=== PATIENT | male | born 1950 | race Caucasian/White ===

== ENCOUNTER 2024-10-19 13:45 | Outpatient (RCR) | payer MEDICARE, SELFPAY ==
[2024-10-12 09:20] VITALS: BP 194/93; PULSE 78; RESP 18; TEMP 36.8; BMI 37.3
--- NOTE | 2024-10-12 10:03 | HP.PCM_ITS ---
History of Present Illness Date of Service: 10/12/24 Chief Complaint: Full-thickness wound, left foot and ankle. History of Wound: Full-thickness wound to left foot and ankle secondary to venous insufficiency. Patient has extensive history of vascular intervention from Dr. Rock Progress of Wound: Patient is a 73-year-old nondiabetic male presenting to the wound care center today for evaluation for a full-thickness wound to the left foot and left ankle. Patient has extensive history of vascular intervention from Dr. Rock. Patient recently saw Dr. Rock approximately 3 to 5 weeks ago where he had foam injected into his lateral foot to close down the vein since then he has been dealing with a full-thickness wound secondary to his venous insufficiency. Patient has concern for infection to the left foot. He was referred by a friend/neighbor to the [facility] wound care center at [facility] and treatment with Dr. Ennis. Patient has been working in the yard for long hours during the day with his foot in a dependent position. Patient does elevate when at rest. Self treatment has been provided by his . He denies any trauma to the area. Denies constitutional symptoms. No other pedal complaints at this time. REPLACED BY [facility] Social History Smoking Status: Current every day smoker Vital Signs Vital Signs Vital Signs: 10/12/24 09:20 Temperature 98.3 F Temperature Source Temporal Pulse Rate 78 Respiratory Rate 18 Blood Pressure 194/93 H Blood Pressure Mean 126 Blood Pressure Source Monitor Blood Pressure Position Semi-Fowlers Blood Pressure Location Left Arm Oxygen Delivery Method Room Air Weight Weight: 117.934 kg Body Mass Index (BMI) 37.3 Physical Exam Narrative Vascular: DP and PT pulses are biphasic on Doppler. CFT is brisk. Skin temperature gradient is warm to warm from proximal ankles to distal digit. No focal increase is noted. Diffuse hemosiderin deposits are appreciated to the left lower extremity. Evidence of blanchable periwound erythema to the left lateral foot. Neurological: Light touch is intact. Patient responds to painful stimuli. Dermatological: Full-thickness wound to the lateral left foot measuring 1.2 x 2.7 x 0.2 cm. Blanchable erythema to periwound. Wound base is fibrogranular nature. Cannot rule out infection at this time. Culture was taken. Full- thickness wound to the left lateral ankle measuring 1.2 x 0.7 x 0.2 cm. Wound base is granular nature. Excisional debridement down to including subcutaneous tissue of the left foot lateral full-thickness wound with a number 3 mm dermal curette done without incident. Predebridement measurement was 1.0 x 2.5 x 0.1 cm. Postdebridement measurement is 1.2 x 2.7 x 0.2 cm. Excisional debridement down to including subcutaneous tissue of the left lateral leg/ankle full-thickness wound with a number 3 mm dermal curette done without incident. Predebridement measurement was eschar. Postdebridement measurement is 1.2 x 0.7 x 0.2 cm. Muscle skeletal:. Decreased range of motion to the left ankle secondary to osteoarthritis. Mild pain on palpation to both full-thickness wounds to the left lower extremity. No pain with calf pressure. Debridement Note Debridement Note Debridement Free Text: Excisional debridement down to including subcutaneous tissue of the left foot lateral full-thickness wound with a number 3 mm dermal curette done without incident. Predebridement measurement was 1.0 x 2.5 x 0.1 cm. Postdebridement measurement is 1.2 x 2.7 x 0.2 cm. Excisional debridement down to including subcutaneous tissue of the left lateral leg/ankle full-thickness wound with a number 3 mm dermal curette done without incident. Predebridement measurement was eschar. Postdebridement measurement is 1.2 x 0.7 x 0.2 cm. Post-Debridement Measurements and Additional Note: Post-Debridement Measurements/Treatment - Nurse 1 - General Ulcer Assessment Start: 10/12/24 09:12 Freq: Status: Active Protocol: ENDER Activity Type Activity Date Activity User E-sign Co-sign Detail Recorded Client Recorded Date Recorded By Document 10/12/24 09:20 DE [id number] 10/12/24 09:24 DE 10/12/24 09:20 - Today's Visit Information Type of service Initial Visit Arrival Mode Ambulatory Accompanied by Patient Identification Verified (Name & Yes ) Height and Weight Height 5 ft 10 in Weight 117.934 kg Weight in Pounds 260.0 lbs Weight Measurement Method Stated by Patient Body Mass Index (BMI) 37.3 BMI Classification Obese Vital Signs Temperature (97.8 F-99.1 F) 98.3 F Temperature Source Temporal Pulse Rate (60-100) 78 Pulse Location Monitor Respiratory Rate (12-18) 18 Respiratory rate source Observation Oxygen Delivery Method Room Air Blood Pressure (90/60-120/80) 194/93 H Blood Pressure Mean 126 Source Monitor Position Semi-Fowlers Blood Pressure Location Left Arm History Since Last Visit- (Skip if this is Patient's initial visit) Left Footwear Regular Shoe Right Footwear Regular Shoe Pain Scale: 0-10 Numeric Is Patient Pain Free? Yes Communication Assessment Preferred language Indian Revising Clerk Required No Able to Read Yes Able to Write Yes Communication Tools None Caregiver Communication Skills No Impairment Impairment Right Hearing Abillity Normal Left Hearing Abillity Normal Visual Assistive Devices Glasses Teaching Assessment Preferences Verbal Barriers to Learning None Readiness To Learn Excellent Willingness to Engage in Self Management High Activies Readiness to Engage in Self Management High Activities Anxiety Level Calm Cooperation Cooperative Perception Coherent Interest in Health Problem Asks Questions Education Importance Acknowledges Need Does Patient Smoke tobacco or other Yes substances Smoking Status Current every day smoker Is Patient Diabetic No Functional Assessment Recent Decline in Ability to Perform Denies Any Declines WC - Nurse 1 - General Ulcer Measurement Start: 10/12/24 09:12 Freq: Status: Active Protocol: Activity Type Activity Date Activity User E-sign Co-sign Detail Recorded Client Recorded Date Recorded By Document 10/12/24 09:20 DE [id number] 10/12/24 09:24 DE 10/12/24 09:20 Wound Center Nurse 1 #1 LT LAT FOOT -Current Size (cm) - Length 1.4 -Current Size (cm) - Width 2 -Current Size (cm) - Depth 0.2 -Total Square Cm 2.8 -Date of Last Picture (Recall this 10/12/24 field) -Exudate Amt Large -Exudate Type Serosanguineous -Wound Margin Thickened & Rolled Under -Granulation Amt Medium (34-66%) -Granulation Quality [place] -Necrosis Amt Medium (34-66%) -Necrotic Tissue Type Adherent Slough -Texture (Glenda-wound Skin Appearance) Assessed -Moisture (Glenda-wound Skin Appearance) Assessed -Color (Glenda-wound Skin Appearance) Assessed, Erythema -Temperature (Glenda-wound Skin No Abnormality Appearance) (Pt Warm) -Tenderness on Palpation (Glenda-wound No Skin Appearance) -Ulcer Cleansing Soap and Water -Foul Odor after Cleansing No -Anesthetic Used 5% Lidocaine Gel Left Calf (cm) 41 Left Ankle (cm) 23 WC - Nurse 2 - General Ulcer CM Notes Start: 10/12/24 09:12 Freq: Status: Active Protocol: Activity Type Activity Date Activity User E-sign Co-sign Detail Recorded Client Recorded Date Recorded By Document 10/12/24 09:46 BILL [id number] 10/12/24 09:55 BILL 10/12/24 09:46 Wound Center Nurse 2 2-LEFT LATERAL LEG -Time 09:53 -Correct Patient Yes -Correct Side, Site, Position Yes -Correct Procedure Yes -Procedure Performed Yes -Type of Procedure Debridement -Clinical Debridement Subcutaneous -Tissue Removed Subcutaneous -Post Debridement (cm) - Length 1.2 -Post Debridement (cm) - Width 0.7 -Post Debridement (cm) - Depth 0.2 -Total Square (Post) (cm) 0.84 -Area of Debridement (cm) - Length 1.2 -Area of Debridement (cm) - Width 0.7 -Total Square (Area) (cm) 0.84 -Tunneling No -Undermining/Tunneling No -Circular Undermining No -Wound/Ulcer Outcome Not Healed -Ulcer Cleansing Rinsed/ Irrigated with Saline -Foul Odor after Cleansing No -Bioengineered Tissue No -Bleeding Controlled with Pressure -Treatment Response Procedure Tolerated Well -Offloading No -Debridement - Subq, 1st 20sq cm Yes #1 LT LAT FOOT -Time 09:53 -Correct Patient Yes -Correct Side, Site, Position Yes -Correct Procedure Yes -Procedure Performed Yes -Type of Procedure Debridement -Clinical Debridement Subcutaneous -Tissue Removed Subcutaneous -Post Debridement (cm) - Length 1.2 -Post Debridement (cm) - Width 2.7 -Post Debridement (cm) - Depth 0.2 -Total Square (Post) (cm) 3.24 -Area of Debridement (cm) - Length 1.2 -Area of Debridement (cm) - Width 2.7 -Total Square (Area) (cm) 3.24 -Tunneling No -Undermining/Tunneling No -Circular Undermining No -Wound/Ulcer Outcome Not Healed -Ulcer Cleansing Rinsed/ Irrigated with Saline -Foul Odor after Cleansing No -Bioengineered Tissue No -Bleeding Controlled with Pressure -Treatment Response Procedure Tolerated Well -Offloading No -Debridement - Subq, 1st 20sq cm No Pain Scale: 0-10 Numeric Is Patient Pain Free? Yes Assessment/Plan Assessment/Plan (1) Non-pressure chronic ulcer of other part of left foot with fat layer exposed: CODE(S): L97.522 - Non-pressure chronic ulcer of other part of left foot with fat layer exposed PLAN: Patient was examined and evaluated. All findings were discussed with the patient. All questions were answered to the patient's satisfaction. Excisional debridement down to including subcutaneous tissue of the left foot lateral full-thickness wound with a number 3 mm dermal curette done without incident. Predebridement measurement was 1.0 x 2.5 x 0.1 cm. Postdebridement measurement is 1.2 x 2.7 x 0.2 cm. Excisional debridement down to including subcutaneous tissue of the left lateral leg/ankle full-thickness wound with a number 3 mm dermal curette done without incident. Predebridement measurement was eschar. Postdebridement measurement is 1.2 x 0.7 x 0.2 cm. Both full-thickness wound were wiped clean and patted dry. Betadine soaked gauze was applied to the full-thickness wound followed by dry sterile dressing and double layer Tubigrip. Patient will perform daily dressing changes. I did educate the patient that he needs to refrain from working outside for long periods of time and needs to elevate and rest his left lower extremity is much as he can to help heal his full-thickness wound. Culture was taken from the left foot full-thickness wound and antibiotics will be provided once culture and sensitivities return. Follow-up at the wound care center with Dr. Ennis in 1 week. (2) Non-pressure chronic ulcer of left ankle with fat layer exposed: CODE(S): L97.322 - Non-pressure chronic ulcer of left ankle with fat layer exposed (3) Other specified peripheral vascular diseases: CODE(S): I73.89 - Other specified peripheral vascular diseases
--- NOTE | 2024-10-12 10:03 | HP.PCM_ITS ---
History of Present Illness Date of Service: 10/12/24 Chief Complaint: Full-thickness wound, left foot and ankle. History of Wound: Full-thickness wound to left foot and ankle secondary to venous insufficiency. Patient has extensive history of vascular intervention from Dr. Rock Progress of Wound: Patient is a 73-year-old nondiabetic male presenting to the wound care center today for evaluation for a full-thickness wound to the left foot and left ankle. Patient has extensive history of vascular intervention from Dr. Rock. Patient recently saw Dr. Rock approximately 3 to 5 weeks ago where he had foam injected into his lateral foot to close down the vein since then he has been dealing with a full-thickness wound secondary to his venous insufficiency. Patient has concern for infection to the left foot. He was referred by a friend/neighbor to the [facility] wound care center at [facility] and treatment with Dr. Ennis. Patient has been working in the yard for long hours during the day with his foot in a dependent position. Patient does elevate when at rest. Self treatment has been provided by his . He denies any trauma to the area. Denies constitutional symptoms. No other pedal complaints at this time. [facility] Social History Smoking Status: Current every day smoker Vital Signs Vital Signs Vital Signs: 10/12/24 09:20 Temperature 98.3 F Temperature Source Temporal Pulse Rate 78 Respiratory Rate 18 Blood Pressure 194/93 H Blood Pressure Mean 126 Blood Pressure Source Monitor Blood Pressure Position Semi-Fowlers Blood Pressure Location Left Arm Oxygen Delivery Method Room Air Weight Weight: 117.934 kg Body Mass Index (BMI) 37.3 Physical Exam Narrative Vascular: DP and PT pulses are biphasic on Doppler. CFT is brisk. Skin temperature gradient is warm to warm from proximal ankles to distal digit. No focal increase is noted. Diffuse hemosiderin deposits are appreciated to the left lower extremity. Evidence of blanchable periwound erythema to the left lateral foot. Neurological: Light touch is intact. Patient responds to painful stimuli. Dermatological: Full-thickness wound to the lateral left foot measuring 1.2 x 2.7 x 0.2 cm. Blanchable erythema to periwound. Wound base is fibrogranular nature. Cannot rule out infection at this time. Culture was taken. Full- thickness wound to the left lateral ankle measuring 1.2 x 0.7 x 0.2 cm. Wound base is granular nature. Excisional debridement down to including subcutaneous tissue of the left foot lateral full-thickness wound with a number 3 mm dermal curette done without incident. Predebridement measurement was 1.0 x 2.5 x 0.1 cm. Postdebridement measurement is 1.2 x 2.7 x 0.2 cm. Excisional debridement down to including subcutaneous tissue of the left lateral leg/ankle full-thickness wound with a number 3 mm dermal curette done without incident. Predebridement measurement was eschar. Postdebridement measurement is 1.2 x 0.7 x 0.2 cm. Muscle skeletal:. Decreased range of motion to the left ankle secondary to osteoarthritis. Mild pain on palpation to both full-thickness wounds to the left lower extremity. No pain with calf pressure. Debridement Note Debridement Note Debridement Free Text: Excisional debridement down to including subcutaneous tissue of the left foot lateral full-thickness wound with a number 3 mm dermal curette done without incident. Predebridement measurement was 1.0 x 2.5 x 0.1 cm. Postdebridement measurement is 1.2 x 2.7 x 0.2 cm. Excisional debridement down to including subcutaneous tissue of the left lateral leg/ankle full-thickness wound with a number 3 mm dermal curette done without incident. Predebridement measurement was eschar. Postdebridement measurement is 1.2 x 0.7 x 0.2 cm. Post-Debridement Measurements and Additional Note: Post-Debridement Measurements/Treatment - Nurse 1 - General Ulcer Assessment Start: 10/12/24 09:12 Freq: Status: Active Protocol: ENDER Activity Type Activity Date Activity User E-sign Co-sign Detail Recorded Client Recorded Date Recorded By Document 10/12/24 09:20 [address] [id number] 10/12/24 09:24 CT 10/12/24 09:20 - Today's Visit Information Type of service Initial Visit Arrival Mode Ambulatory Accompanied by Patient Identification Verified (Name & Yes ) Height and Weight Height 5 ft 10 in Weight 117.934 kg Weight in Pounds 260.0 lbs Weight Measurement Method Stated by Patient Body Mass Index (BMI) 37.3 BMI Classification Obese Vital Signs Temperature (97.8 F-99.1 F) 98.3 F Temperature Source Temporal Pulse Rate (60-100) 78 Pulse Location Monitor Respiratory Rate (12-18) 18 Respiratory rate source Observation Oxygen Delivery Method Room Air Blood Pressure (90/60-120/80) 194/93 H Blood Pressure Mean 126 Source Monitor Position Semi-Fowlers Blood Pressure Location Left Arm History Since Last Visit- (Skip if this is Patient's initial visit) Left Footwear Regular Shoe Right Footwear Regular Shoe Pain Scale: 0-10 Numeric Is Patient Pain Free? Yes Communication Assessment Preferred language Macedonian Senior Budget Analyst Required No Able to Read Yes Able to Write Yes Communication Tools None Caregiver Communication Skills No Impairment Impairment Right Hearing Abillity Normal Left Hearing Abillity Normal Visual Assistive Devices Glasses Teaching Assessment Preferences Verbal Barriers to Learning None Readiness To Learn Excellent Willingness to Engage in Self Management High Activies Readiness to Engage in Self Management High Activities Anxiety Level Calm Cooperation Cooperative Perception Coherent Interest in Health Problem Asks Questions Education Importance Acknowledges Need Does Patient Smoke tobacco or other Yes substances Smoking Status Current every day smoker Is Patient Diabetic No Functional Assessment Recent Decline in Ability to Perform Denies Any Declines WC - Nurse 1 - General Ulcer Measurement Start: 10/12/24 09:12 Freq: Status: Active Protocol: Activity Type Activity Date Activity User E-sign Co-sign Detail Recorded Client Recorded Date Recorded By Document 10/12/24 09:20 CT [id number] 10/12/24 09:24 CT 10/12/24 09:20 Wound Center Nurse 1 #1 LT LAT FOOT -Current Size (cm) - Length 1.4 -Current Size (cm) - Width 2 -Current Size (cm) - Depth 0.2 -Total Square Cm 2.8 -Date of Last Picture (Recall this 10/12/24 field) -Exudate Amt Large -Exudate Type Serosanguineous -Wound Margin Thickened & Rolled Under -Granulation Amt Medium (34-66%) -Granulation Quality [place] -Necrosis Amt Medium (34-66%) -Necrotic Tissue Type Adherent Slough -Texture (Glenda-wound Skin Appearance) Assessed -Moisture (Glenda-wound Skin Appearance) Assessed -Color (Glenda-wound Skin Appearance) Assessed, Erythema -Temperature (Glenda-wound Skin No Abnormality Appearance) (Pt Warm) -Tenderness on Palpation (Glenda-wound No Skin Appearance) -Ulcer Cleansing Soap and Water -Foul Odor after Cleansing No -Anesthetic Used 5% Lidocaine Gel Left Calf (cm) 41 Left Ankle (cm) 23 WC - Nurse 2 - General Ulcer CM Notes Start: 10/12/24 09:12 Freq: Status: Active Protocol: Activity Type Activity Date Activity User E-sign Co-sign Detail Recorded Client Recorded Date Recorded By Document 10/12/24 09:46 BILL [id number] 10/12/24 09:55 BILL 10/12/24 09:46 Wound Center Nurse 2 2-LEFT LATERAL LEG -Time 09:53 -Correct Patient Yes -Correct Side, Site, Position Yes -Correct Procedure Yes -Procedure Performed Yes -Type of Procedure Debridement -Clinical Debridement Subcutaneous -Tissue Removed Subcutaneous -Post Debridement (cm) - Length 1.2 -Post Debridement (cm) - Width 0.7 -Post Debridement (cm) - Depth 0.2 -Total Square (Post) (cm) 0.84 -Area of Debridement (cm) - Length 1.2 -Area of Debridement (cm) - Width 0.7 -Total Square (Area) (cm) 0.84 -Tunneling No -Undermining/Tunneling No -Circular Undermining No -Wound/Ulcer Outcome Not Healed -Ulcer Cleansing Rinsed/ Irrigated with Saline -Foul Odor after Cleansing No -Bioengineered Tissue No -Bleeding Controlled with Pressure -Treatment Response Procedure Tolerated Well -Offloading No -Debridement - Subq, 1st 20sq cm Yes #1 LT LAT FOOT -Time 09:53 -Correct Patient Yes -Correct Side, Site, Position Yes -Correct Procedure Yes -Procedure Performed Yes -Type of Procedure Debridement -Clinical Debridement Subcutaneous -Tissue Removed Subcutaneous -Post Debridement (cm) - Length 1.2 -Post Debridement (cm) - Width 2.7 -Post Debridement (cm) - Depth 0.2 -Total Square (Post) (cm) 3.24 -Area of Debridement (cm) - Length 1.2 -Area of Debridement (cm) - Width 2.7 -Total Square (Area) (cm) 3.24 -Tunneling No -Undermining/Tunneling No -Circular Undermining No -Wound/Ulcer Outcome Not Healed -Ulcer Cleansing Rinsed/ Irrigated with Saline -Foul Odor after Cleansing No -Bioengineered Tissue No -Bleeding Controlled with Pressure -Treatment Response Procedure Tolerated Well -Offloading No -Debridement - Subq, 1st 20sq cm No Pain Scale: 0-10 Numeric Is Patient Pain Free? Yes Assessment/Plan Assessment/Plan (1) Non-pressure chronic ulcer of other part of left foot with fat layer exposed: CODE(S): L97.522 - Non-pressure chronic ulcer of other part of left foot with fat layer exposed PLAN: Patient was examined and evaluated. All findings were discussed with the patient. All questions were answered to the patient's satisfaction. Excisional debridement down to including subcutaneous tissue of the left foot lateral full-thickness wound with a number 3 mm dermal curette done without incident. Predebridement measurement was 1.0 x 2.5 x 0.1 cm. Postdebridement measurement is 1.2 x 2.7 x 0.2 cm. Excisional debridement down to including subcutaneous tissue of the left lateral leg/ankle full-thickness wound with a number 3 mm dermal curette done without incident. Predebridement measurement was eschar. Postdebridement measurement is 1.2 x 0.7 x 0.2 cm. Both full-thickness wound were wiped clean and patted dry. Betadine soaked gauze was applied to the full-thickness wound followed by dry sterile dressing and double layer Tubigrip. Patient will perform daily dressing changes. I did educate the patient that he needs to refrain from working outside for long periods of time and needs to elevate and rest his left lower extremity is much as he can to help heal his full-thickness wound. Culture was taken from the left foot full-thickness wound and antibiotics will be provided once culture and sensitivities return. Follow-up at the wound care center with Dr. Ennis in 1 week. (2) Non-pressure chronic ulcer of left ankle with fat layer exposed: CODE(S): L97.322 - Non-pressure chronic ulcer of left ankle with fat layer exposed (3) Other specified peripheral vascular diseases: CODE(S): I73.89 - Other specified peripheral vascular diseases
--- NOTE | 2024-10-13 08:24 | WC ---
PHOTO-LEFT LATERAL FOOT 10/12/24
--- NOTE | 2024-10-13 08:24 | WC ---
PHOTO-LEFT LATERAL FOOT 10/12/24
[2024-10-19 14:02] VITALS: BP 160/84; PULSE 75; RESP 18; TEMP 36.7; BMI 37.3
--- NOTE | 2024-10-20 14:24 | PN.PCM_ITS ---
History of Present Illness Date of Service: 10/19/24 Chief Complaint: Full-thickness wound, left foot and ankle. History of Wound: Full-thickness wound to left foot and ankle secondary to venous insufficiency. Patient has extensive history of vascular intervention from Dr. Rock Progress of Wound: Stable full-thickness wound left lower extremity no sign of infection. Subjective Subjective Patient is a 74-year-old male presenting to wound care center today follow-up evaluation of full-thickness wound left lower extremity. Patient is here to also go over his wound care results from culture and sensitivity. He has been dressing changes as discussed. He admits to some pain to left lower extremity but otherwise he is doing well. He denies trauma. Denies constitutional symptoms. No other pedal complaints at this time Objective Data Objective Data Vital Signs: Vital Signs Temp Pulse Resp BP O2 Del Method 98.1 F 75 18 160/84 H Room Air 10/19/24 14:02 10/19/24 14:02 10/19/24 14:02 10/19/24 14:02 10/19/24 14:02 Oxygen Delivery Method Room Air Weight: 117.934 kg Body Mass Index (BMI) 37.3 Lab / Micro Data Micro: Microbiology 10/12/24 09:52 Ulcer, Decubitus - Left Foot Gram Stain - Final 10/12/24 09:52 Ulcer, Decubitus - Left Foot Wound Culture - Final No growth aerobically. 10/12/24 09:52 Ulcer, Decubitus - Left Foot Anaerobic Culture - Final No anaerobic bacteria isolated. Physical Exam Narrative Vascular: DP and PT pulses are biphasic on Doppler. CFT is brisk. Skin temperature gradient is warm to warm from proximal ankles to distal digit. No focal increase is noted. Diffuse hemosiderin deposits are appreciated to the left lower extremity. No erytherma Neurological: Light touch is intact. Patient responds to painful stimuli. Dermatological: Full-thickness wound to the lateral left foot measuring 1.2 x 1.2 x 0.2 cm. Wound base is fibrogranular nature. Full-thickness wound to the left lateral ankle measuring 1.0 x 0.5 x 0.1 cm. Wound base is granular nature. Excisional debridement down to including subcutaneous tissue of the left foot lateral full-thickness wound with a number 3 mm dermal curette done without incident. Predebridement measurement was eschar. Postdebridement measurement is 1.2 x 1.2 x 0.2 cm. Excisional debridement down to including subcutaneous tissue of the left lateral leg/ankle full-thickness wound with a number 3 mm dermal curette done without incident. Predebridement measurement was eschar. Postdebridement measurement is 1.0 x 0.5 x 0.1 cm. Muscle skeletal:. Decreased range of motion to the left ankle secondary to osteoarthritis. Mild pain on palpation to both full-thickness wounds to the left lower extremity. No pain with calf pressure. Debridement Note Debridement Note Debridement Free Text: Excisional debridement down to including subcutaneous tissue of the left foot lateral full-thickness wound with a number 3 mm dermal curette done without incident. Predebridement measurement was eschar. Postdebridement measurement is 1.2 x 1.2 x 0.2 cm. Excisional debridement down to including subcutaneous tissue of the left lateral leg/ankle full-thickness wound with a number 3 mm dermal curette done without incident. Predebridement measurement was eschar. Postdebridement measurement is 1.0 x 0.5 x 0.1 cm. 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 ) Arrival Mode Ambulatory Ambulatory,Cane Accompanied by Patient Identification Verified (Name & Yes Yes ) Patient Requires Transmission-Based No Precautions Safety Precautions Fall Prevention Height and Weight Height 5 ft 10 in Weight 117.934 kg Weight in Pounds 260.0 lbs Weight Measurement Method Stated by Patient Body Mass Index (BMI) 37.3 37.3 BMI Classification Obese Obese Vital Signs Temperature (97.8 F-99.1 F) 98.3 F 98.1 F Temperature Source Temporal Temporal Pulse Rate (60-100) 78 75 Pulse Location Monitor Monitor Respiratory Rate (12-18) 18 18 Respiratory rate source Observation Observation Oxygen Delivery Method Room Air Room Air Blood Pressure (90/60-120/80) 194/93 H 160/84 H Blood Pressure Mean (mm Hg) 126 109 Source Monitor Monitor Position Semi-Fowlers Sitting Blood Pressure Location Left Arm Left Forearm History Since Last Visit- (Skip if this is Patient's initial visit) Have you changed medications since your No last visit? Any new allergies or adverse reactions No Had a fall/change in ADL's that may No increase risk of falls Signs or symptoms of abuse and/or No neglect since last visit Have you been in the hospital since your No last visit? Has dressing in place as prescribed Yes Has compression in place as prescribed Yes Has offloadiing in place as prescribed N/A Experienced any changes in pain level or No management Left Footwear Regular Shoe Regular Shoe Right Footwear Regular Shoe Regular Shoe Pain Scale: 0-10 Numeric Is Patient Pain Free? 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 Required No Able to Read Yes Able to Write Yes Communication Tools None Caregiver Communication Skills No Impairment Impairment Right Hearing Abillity Normal Left Hearing Abillity Normal Visual Assistive Devices Glasses Teaching Assessment Preferences Verbal Barriers to Learning None Readiness To Learn Excellent Willingness to Engage in Self Management High Activies Readiness to Engage in Self Management High Activities Anxiety Level Calm Cooperation Cooperative Perception Coherent Interest in Health Problem Asks Questions Education Importance Acknowledges Need Does Patient Smoke tobacco or other Yes substances Smoking Status Current every day smoker Is Patient Diabetic No Functional Assessment Recent Decline in Ability to Perform Denies Any Declines WC - Nurse 1 - General Ulcer Measurement Start: 10/12/24 09:12 Freq: Status: Active Protocol: Activity Type Activity Date Activity User E-sign Co-sign Detail Recorded Client Recorded Date Recorded By Document 10/12/24 09:20 MT [id number] 10/12/24 09:24 MT Document 10/19/24 14:02 DS [id number] 10/19/24 14:05 DS 10/12/24 10/19/24 09:20 14:02 Wound Center Nurse 1 2-LEFT LATERAL LEG -Current Size (cm) - Length 2.5 -Current Size (cm) - Width 1.2 -Current Size (cm) - Depth 0.1 -Total Square Cm 3.00 -Photo Taken No -Tunneling No -Undermining/Tunneling No -Circular Undermining No -Exudate Amt Small -Exudate Type Serosanguineous -Wound Margin Distinct, Outline Attached -Necrosis Amt Large (67-100%) -Necrotic Tissue Type Eschar -Texture (Glenda-wound Skin Appearance) Assessed -Moisture (Glenda-wound Skin Appearance) Assessed -Color (Glenda-wound Skin Appearance) Assessed -Temperature (Glenda-wound Skin No Abnormality Appearance) (Pt Warm) -Tenderness on Palpation ([place]-wound No Skin Appearance) -Ulcer Cleansing Soap and Water -Anesthetic Used 5% Lidocaine Gel #1 LT LAT FOOT -Current Size (cm) - Length 1.4 0.8 -Current Size (cm) - Width 2 3.1 -Current Size (cm) - Depth 0.2 0.2 -Total Square Cm 2.8 2.48 -Date of Last Picture (Recall this 10/12/24 field) -Photo Taken No -Tunneling No -Undermining/Tunneling No -Circular Undermining No -Exudate Amt Large Small -Exudate Type Serosanguineous Serosanguineous -Wound Margin Thickened & Distinct, Rolled Under Outline Attached -Granulation Amt Medium (34-66%) Medium (34-66%) -Granulation Quality Humbird Humbird -Necrosis Amt Medium (34-66%) Medium (34-66%) -Necrotic Tissue Type Adherent Slough Adherent Slough -Texture (Glenda-wound Skin Appearance) Assessed Assessed -Moisture (Glenda-wound Skin Appearance) Assessed Assessed -Color (Glenda-wound Skin Appearance) Assessed, Assessed Erythema -Temperature (Glenda-wound Skin No Abnormality No Abnormality Appearance) (Pt Warm) (Pt Warm) -Tenderness on Palpation (Glenda-wound No No Skin Appearance) -Ulcer Cleansing Soap and Water Soap and Water -Foul Odor after Cleansing No -Anesthetic Used 5% Lidocaine 5% Lidocaine Gel Gel Left Calf (cm) 41 Left Ankle (cm) 23 WC - Nurse 2 - General Ulcer CM Notes Start: 10/12/24 09:12 Freq: Status: Active Protocol: Activity Type Activity Date Activity User E-sign Co-sign Detail Recorded Client Recorded Date Recorded By Document 10/12/24 09:46 BILL [id number] 10/12/24 09:55 JF Document 10/19/24 14:25 JF [id number] 10/19/24 14:26 JF 10/12/24 10/19/24 09:46 14:25 Wound Center Nurse 2 2-LEFT LATERAL LEG -Time 09:53 14:25 -Correct Patient Yes Yes -Correct Side, Site, Position Yes Yes -Correct Procedure Yes Yes -Procedure Performed Yes Yes -Type of Procedure Debridement Debridement -Clinical Debridement Subcutaneous Subcutaneous -Tissue Removed Subcutaneous Subcutaneous -Post Debridement (cm) - Length 1.2 1 -Post Debridement (cm) - Width 0.7 0.5 -Post Debridement (cm) - Depth 0.2 0.1 -Total Square (Post) (cm) 0.84 0.5 -Area of Debridement (cm) - Length 1.2 1 -Area of Debridement (cm) - Width 0.7 0.5 -Total Square (Area) (cm) 0.84 0.5 -Tunneling No No -Undermining/Tunneling No No -Circular Undermining No No -Wound/Ulcer Outcome Not Healed Not Healed -Ulcer Cleansing Rinsed/ Rinsed/ Irrigated with Irrigated with Saline Saline -Foul Odor after Cleansing No No -Bioengineered Tissue No No -Bleeding Controlled with Pressure Pressure -Treatment Response Procedure Procedure Tolerated Well Tolerated Well -Offloading No No -Debridement - Subq, 1st 20sq cm Yes Yes #1 LT LAT FOOT -Time 09:53 14:26 -Correct Patient Yes Yes -Correct Side, Site, Position Yes Yes -Correct Procedure Yes Yes -Procedure Performed Yes Yes -Type of Procedure Debridement Debridement -Clinical Debridement Subcutaneous Subcutaneous -Tissue Removed Subcutaneous Subcutaneous -Post Debridement (cm) - Length 1.2 1.2 -Post Debridement (cm) - Width 2.7 1.7 -Post Debridement (cm) - Depth 0.2 0.2 -Total Square (Post) (cm) 3.24 2.04 -Area of Debridement (cm) - Length 1.2 1.2 -Area of Debridement (cm) - Width 2.7 1.7 -Total Square (Area) (cm) 3.24 2.04 -Tunneling No No -Undermining/Tunneling No No -Circular Undermining No No -Wound/Ulcer Outcome Not Healed Not Healed -Ulcer Cleansing Rinsed/ Rinsed/ Irrigated with Irrigated with Saline Saline -Foul Odor after Cleansing No No -Bioengineered Tissue No No -Bleeding Controlled with Pressure Pressure -Treatment Response Procedure Procedure Tolerated Well Tolerated Well -Offloading No No -Debridement - Subq, 1st 20sq cm No Yes Pain Scale: 0-10 Numeric Is Patient Pain Free? Yes Yes - Nurse 3 - General Ulcer D/C NN Start: 10/12/24 09:12 Freq: Status: Active Protocol: Activity Type Activity Date Activity User E-sign Co-sign Detail Recorded Client Recorded Date Recorded By Document 10/12/24 10:09 PR [id number] 10/12/24 10:21 PR Document 10/19/24 14:34 [id number] 10/19/24 14:35 10/12/24 10/19/24 10:09 14:34 Wound Care Center Nurse 3 2-LEFT LATERAL LEG -Ulcer Cleansing Not Cleansed -Foul Odor after Cleansing No No -Negative Pressure Wound Therapy N/A -Primary Dressing Covered/Secured with Dry Gauze & Dry Gauze & Roll Gauze, Roll Gauze, Secured with Secured with Tape Tape -Other Covering betadine -Wound Comment(s) BETADINE #1 LT LAT FOOT -Ulcer Cleansing Not Cleansed -Foul Odor after Cleansing No -Primary Dressing Covered/Secured with Dry Gauze LLE -Tubular Bandage Double Layer Double Layer -Size of Tubigrip Used Size E Size E -Size E ($) 2 2 Pain Scale: 0-10 Numeric Is Patient Pain Free? Yes Yes - Visit Discharge Discharge Condition Stable Ambulatory Status Ambulatory,Cane Transportation Private Auto Assessment/Plan Assessment/Plan (1) Non-pressure chronic ulcer of other part of left foot with fat layer exposed: CODE(S): L97.522 - Non-pressure chronic ulcer of other part of left foot with fat layer exposed PLAN: Patient was examined and evaluated. All findings were discussed with the patient. All questions were answered to the patient's satisfaction. Excisional debridement down to including subcutaneous tissue of the left foot lateral full-thickness wound with a number 3 mm dermal curette done without incident. Predebridement measurement was eschar. Postdebridement measurement is 1.2 x 1.2 x 0.2 cm. Excisional debridement down to including subcutaneous tissue of the left lateral leg/ankle full-thickness wound with a number 3 mm dermal curette done without incident. Predebridement measurement was eschar. Postdebridement measurement is 1.0 x 0.5 x 0.1 cm. Both full-thickness wound were wiped clean and patted dry. Betadine soaked gauze was applied to the full-thickness wound followed by dry sterile dressing and double layer Tubigrip. Patient will perform daily dressing changes. Review of the patient's micro mildly cultures were negative for any growth. Patient would not be placed on antibiotics at this time. Will continue dressing changes and compression wrap. Will begin authorization for amniotic stains and substitute to leveler helper in the patient's chronic nonhealing wound. Follow-up at the wound care center with Dr. Ennis in 1 week. (2) Non-pressure chronic ulcer of left ankle with fat layer exposed: CODE(S): L97.322 - Non-pressure chronic ulcer of left ankle with fat layer exposed (3) Other specified peripheral vascular diseases: CODE(S): I73.89 - Other specified peripheral vascular diseases
--- NOTE | 2024-10-20 14:24 | PN.PCM_ITS ---
History of Present Illness Date of Service: 10/19/24 Chief Complaint: Full-thickness wound, left foot and ankle. History of Wound: Full-thickness wound to left foot and ankle secondary to venous insufficiency. Patient has extensive history of vascular intervention from Dr. Rock Progress of Wound: Stable full-thickness wound left lower extremity no sign of infection. Subjective Subjective Patient is a 74-year-old male presenting to wound care center today follow-up evaluation of full-thickness wound left lower extremity. Patient is here to also go over his wound care results from culture and sensitivity. He has been dressing changes as discussed. He admits to some pain to left lower extremity but otherwise he is doing well. He denies trauma. Denies constitutional symptoms. No other pedal complaints at this time Objective Data Objective Data Vital Signs: Vital Signs Temp Pulse Resp BP O2 Del Method 98.1 F 75 18 160/84 H Room Air 10/19/24 14:02 10/19/24 14:02 10/19/24 14:02 10/19/24 14:02 10/19/24 14:02 Oxygen Delivery Method Room Air Weight: 117.934 kg Body Mass Index (BMI) 37.3 Lab / Micro Data Micro: Microbiology 10/12/24 09:52 Ulcer, Decubitus - Left Foot Gram Stain - Final 10/12/24 09:52 Ulcer, Decubitus - Left Foot Wound Culture - Final No growth aerobically. 10/12/24 09:52 Ulcer, Decubitus - Left Foot Anaerobic Culture - Final No anaerobic bacteria isolated. Physical Exam Narrative Vascular: DP and PT pulses are biphasic on Doppler. CFT is brisk. Skin temperature gradient is warm to warm from proximal ankles to distal digit. No focal increase is noted. Diffuse hemosiderin deposits are appreciated to the left lower extremity. No erytherma Neurological: Light touch is intact. Patient responds to painful stimuli. Dermatological: Full-thickness wound to the lateral left foot measuring 1.2 x 1.2 x 0.2 cm. Wound base is fibrogranular nature. Full-thickness wound to the left lateral ankle measuring 1.0 x 0.5 x 0.1 cm. Wound base is granular nature. Excisional debridement down to including subcutaneous tissue of the left foot lateral full-thickness wound with a number 3 mm dermal curette done without incident. Predebridement measurement was eschar. Postdebridement measurement is 1.2 x 1.2 x 0.2 cm. Excisional debridement down to including subcutaneous tissue of the left lateral leg/ankle full-thickness wound with a number 3 mm dermal curette done without incident. Predebridement measurement was eschar. Postdebridement measurement is 1.0 x 0.5 x 0.1 cm. Muscle skeletal:. Decreased range of motion to the left ankle secondary to osteoarthritis. Mild pain on palpation to both full-thickness wounds to the left lower extremity. No pain with calf pressure. Debridement Note Debridement Note Debridement Free Text: Excisional debridement down to including subcutaneous tissue of the left foot lateral full-thickness wound with a number 3 mm dermal curette done without incident. Predebridement measurement was eschar. Postdebridement measurement is 1.2 x 1.2 x 0.2 cm. Excisional debridement down to including subcutaneous tissue of the left lateral leg/ankle full-thickness wound with a number 3 mm dermal curette done without incident. Predebridement measurement was eschar. Postdebridement measurement is 1.0 x 0.5 x 0.1 cm. 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 ) Arrival Mode Ambulatory Ambulatory,Cane Accompanied by Patient Identification Verified (Name & Yes Yes ) Patient Requires Transmission-Based No Precautions Safety Precautions Fall Prevention Height and Weight Height 5 ft 10 in Weight 117.934 kg Weight in Pounds 260.0 lbs Weight Measurement Method Stated by Patient Body Mass Index (BMI) 37.3 37.3 BMI Classification Obese Obese Vital Signs Temperature (97.8 F-99.1 F) 98.3 F 98.1 F Temperature Source Temporal Temporal Pulse Rate (60-100) 78 75 Pulse Location Monitor Monitor Respiratory Rate (12-18) 18 18 Respiratory rate source Observation Observation Oxygen Delivery Method Room Air Room Air Blood Pressure (90/60-120/80) 194/93 H 160/84 H Blood Pressure Mean (mm Hg) 126 109 Source Monitor Monitor Position Semi-Fowlers Sitting Blood Pressure Location Left Arm Left Forearm History Since Last Visit- (Skip if this is Patient's initial visit) Have you changed medications since your No last visit? Any new allergies or adverse reactions No Had a fall/change in ADL's that may No increase risk of falls Signs or symptoms of abuse and/or No neglect since last visit Have you been in the hospital since your No last visit? Has dressing in place as prescribed Yes Has compression in place as prescribed Yes Has offloadiing in place as prescribed N/A Experienced any changes in pain level or No management Left Footwear Regular Shoe Regular Shoe Right Footwear Regular Shoe Regular Shoe Pain Scale: 0-10 Numeric Is Patient Pain Free? Yes Yes Communication Assessment Preferred language [place] Bee[employer]ive Kiln Supervisor Required No Able to Read Yes Able to Write Yes Communication Tools None Caregiver Communication Skills No Impairment Impairment Right Hearing Abillity Normal Left Hearing Abillity Normal Visual Assistive Devices Glasses Teaching Assessment Preferences Verbal Barriers to Learning None Readiness To Learn Excellent Willingness to Engage in Self Management High Activies Readiness to Engage in Self Management High Activities Anxiety Level Calm Cooperation Cooperative Perception Coherent Interest in Health Problem Asks Questions Education Importance Acknowledges Need Does Patient Smoke tobacco or other Yes substances Smoking Status Current every day smoker Is Patient Diabetic No Functional Assessment Recent Decline in Ability to Perform Denies Any Declines WC - Nurse 1 - General Ulcer Measurement Start: 10/12/24 09:12 Freq: Status: Active Protocol: Activity Type Activity Date Activity User E-sign Co-sign Detail Recorded Client Recorded Date Recorded By Document 10/12/24 09:20 MT [id number] 10/12/24 09:24 MT Document 10/19/24 14:02 DS [id number] 10/19/24 14:05 DS 10/12/24 10/19/24 09:20 14:02 Wound Center Nurse 1 2-LEFT LATERAL LEG -Current Size (cm) - Length 2.5 -Current Size (cm) - Width 1.2 -Current Size (cm) - Depth 0.1 -Total Square Cm 3.00 -Photo Taken No -Tunneling No -Undermining/Tunneling No -Circular Undermining No -Exudate Amt Small -Exudate Type Serosanguineous -Wound Margin Distinct, Outline Attached -Necrosis Amt Large (67-100%) -Necrotic Tissue Type Eschar -Texture (Glenda-wound Skin Appearance) Assessed -Moisture (Glenda-wound Skin Appearance) Assessed -Color (Glenda-wound Skin Appearance) Assessed -Temperature (Glneda-wound Skin No Abnormality Appearance) (Pt Warm) -Tenderness on Palpation (Glenda-wound No Skin Appearance) -Ulcer Cleansing Soap and Water -Anesthetic Used 5% Lidocaine Gel #1 LT LAT FOOT -Current Size (cm) - Length 1.4 0.8 -Current Size (cm) - Width 2 3.1 -Current Size (cm) - Depth 0.2 0.2 -Total Square Cm 2.8 2.48 -Date of Last Picture (Recall this 10/12/24 field) -Photo Taken No -Tunneling No -Undermining/Tunneling No -Circular Undermining No -Exudate Amt Large Small -Exudate Type Serosanguineous Serosanguineous -Wound Margin Thickened & Distinct, Rolled Under Outline Attached -Granulation Amt Medium (34-66%) Medium (34-66%) -Granulation Quality [place] -Necrosis Amt Medium (34-66%) Medium (34-66%) -Necrotic Tissue Type Adherent Slough Adherent Slough -Texture (Glenda-wound Skin Appearance) Assessed Assessed -Moisture (Glenda-wound Skin Appearance) Assessed Assessed -Color (Glenda-wound Skin Appearance) Assessed, Assessed Erythema -Temperature (Glenda-wound Skin No Abnormality No Abnormality Appearance) (Pt Warm) (Pt Warm) -Tenderness on Palpation (Glenda-wound No No Skin Appearance) -Ulcer Cleansing Soap and Water Soap and Water -Foul Odor after Cleansing No -Anesthetic Used 5% Lidocaine 5% Lidocaine Gel Gel Left Calf (cm) 41 Left Ankle (cm) 23 WC - Nurse 2 - General Ulcer CM Notes Start: 10/12/24 09:12 Freq: Status: Active Protocol: Activity Type Activity Date Activity User E-sign Co-sign Detail Recorded Client Recorded Date Recorded By Document 10/12/24 09:46 BILL [id number] 10/12/24 09:55 JF Document 10/19/24 14:25 JF [id number] 10/19/24 14:26 JF 10/12/24 10/19/24 09:46 14:25 Wound Center Nurse 2 2-LEFT LATERAL LEG -Time 09:53 14:25 -Correct Patient Yes Yes -Correct Side, Site, Position Yes Yes -Correct Procedure Yes Yes -Procedure Performed Yes Yes -Type of Procedure Debridement Debridement -Clinical Debridement Subcutaneous Subcutaneous -Tissue Removed Subcutaneous Subcutaneous -Post Debridement (cm) - Length 1.2 1 -Post Debridement (cm) - Width 0.7 0.5 -Post Debridement (cm) - Depth 0.2 0.1 -Total Square (Post) (cm) 0.84 0.5 -Area of Debridement (cm) - Length 1.2 1 -Area of Debridement (cm) - Width 0.7 0.5 -Total Square (Area) (cm) 0.84 0.5 -Tunneling No No -Undermining/Tunneling No No -Circular Undermining No No -Wound/Ulcer Outcome Not Healed Not Healed -Ulcer Cleansing Rinsed/ Rinsed/ Irrigated with Irrigated with Saline Saline -Foul Odor after Cleansing No No -Bioengineered Tissue No No -Bleeding Controlled with Pressure Pressure -Treatment Response Procedure Procedure Tolerated Well Tolerated Well -Offloading No No -Debridement - Subq, 1st 20sq cm Yes Yes #1 LT LAT FOOT -Time 09:53 14:26 -Correct Patient Yes Yes -Correct Side, Site, Position Yes Yes -Correct Procedure Yes Yes -Procedure Performed Yes Yes -Type of Procedure Debridement Debridement -Clinical Debridement Subcutaneous Subcutaneous -Tissue Removed Subcutaneous Subcutaneous -Post Debridement (cm) - Length 1.2 1.2 -Post Debridement (cm) - Width 2.7 1.7 -Post Debridement (cm) - Depth 0.2 0.2 -Total Square (Post) (cm) 3.24 2.04 -Area of Debridement (cm) - Length 1.2 1.2 -Area of Debridement (cm) - Width 2.7 1.7 -Total Square (Area) (cm) 3.24 2.04 -Tunneling No No -Undermining/Tunneling No No -Circular Undermining No No -Wound/Ulcer Outcome Not Healed Not Healed -Ulcer Cleansing Rinsed/ Rinsed/ Irrigated with Irrigated with Saline Saline -Foul Odor after Cleansing No No -Bioengineered Tissue No No -Bleeding Controlled with Pressure Pressure -Treatment Response Procedure Procedure Tolerated Well Tolerated Well -Offloading No No -Debridement - Subq, 1st 20sq cm No Yes Pain Scale: 0-10 Numeric Is Patient Pain Free? Yes Yes - Nurse 3 - General Ulcer D/C NN Start: 10/12/24 09:12 Freq: Status: Active Protocol: Activity Type Activity Date Activity User E-sign Co-sign Detail Recorded Client Recorded Date Recorded By Document 10/12/24 10:09 SD [id number] 10/12/24 10:21 SD Document 10/19/24 14:34 [id number] 10/19/24 14:35 10/12/24 10/19/24 10:09 14:34 Wound Care Center Nurse 3 2-LEFT LATERAL LEG -Ulcer Cleansing Not Cleansed -Foul Odor after Cleansing No No -Negative Pressure Wound Therapy N/A -Primary Dressing Covered/Secured with Dry Gauze & Dry Gauze & Roll Gauze, Roll Gauze, Secured with Secured with Tape Tape -Other Covering betadine -Wound Comment(s) BETADINE #1 LT LAT FOOT -Ulcer Cleansing Not Cleansed -Foul Odor after Cleansing No -Primary Dressing Covered/Secured with Dry Gauze LLE -Tubular Bandage Double Layer Double Layer -Size of Tubigrip Used Size E Size E -Size E ($) 2 2 Pain Scale: 0-10 Numeric Is Patient Pain Free? Yes Yes - Visit Discharge Discharge Condition Stable Ambulatory Status Ambulatory,Cane Transportation Private Auto Assessment/Plan Assessment/Plan (1) Non-pressure chronic ulcer of other part of left foot with fat layer exposed: CODE(S): L97.522 - Non-pressure chronic ulcer of other part of left foot with fat layer exposed PLAN: Patient was examined and evaluated. All findings were discussed with the patient. All questions were answered to the patient's satisfaction. Excisional debridement down to including subcutaneous tissue of the left foot lateral full-thickness wound with a number 3 mm dermal curette done without incident. Predebridement measurement was eschar. Postdebridement measurement is 1.2 x 1.2 x 0.2 cm. Excisional debridement down to including subcutaneous tissue of the left lateral leg/ankle full-thickness wound with a number 3 mm dermal curette done without incident. Predebridement measurement was eschar. Postdebridement measurement is 1.0 x 0.5 x 0.1 cm. Both full-thickness wound were wiped clean and patted dry. Betadine soaked gauze was applied to the full-thickness wound followed by dry sterile dressing and double layer Tubigrip. Patient will perform daily dressing changes. Review of the patient's micro mildly cultures were negative for any growth. Patient would not be placed on antibiotics at this time. Will continue dressing changes and compression wrap. 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 Follow-up at the wound care center with Dr. Ennis in 1 week. (2) Non-pressure chronic ulcer of left ankle with fat layer exposed: CODE(S): L97.322 - Non-pressure chronic ulcer of left ankle with fat layer exposed (3) Other specified peripheral vascular diseases: CODE(S): I73.89 - Other specified peripheral vascular diseases
== END 2024-10-20 23:59 | disposition home or self-care (01) ==
LOC: WC 13:45
PROVIDERS: PCP Family Medicine; Referring Provider Family Medicine; Visit Provider Podiatrist Foot & Ankle Surgery
DX: L97.522 Non-pressure chronic ulcer of other part of left foot with fat layer exposed (principal); L97.322 Non-pressure chronic ulcer of left ankle with fat layer exposed; F17.200 Nicotine dependence, unspecified, uncomplicated; I73.89 Other specified peripheral vascular diseases
CPT/HCPCS: 11042; 87070; 87075; 87205; 99204; G0463

== ENCOUNTER 2024-11-16 10:45 | Outpatient (RCR) | payer MEDICARE, SELFPAY ==
[2024-10-26 13:06] VITALS: BP 136/100; PULSE 83; RESP 18; TEMP 36.3
--- NOTE | 2024-10-26 13:53 | PCM.WC.PN ---
History of Present Illness Date of Service: 10/26/24 Chief Complaint: Full-thickness wound, left foot and ankle. History of Wound: Full-thickness wound to left foot and ankle secondary to venous insufficiency. Patient has extensive history of vascular intervention from Dr. Rock Progress of Wound: Stable full-thickness wound left foot and leg with no sign of infection. Subjective Subjective Patient is a 74-year-old male presenting to the wound care center today follow-up evaluation of full-thickness wound to left foot and leg. He has been approved for amnion skin graft substitute. He is wearing compression as educated. He is doing daily dressing changes as discussed. He denies any new onset of trauma. Denies constitutional symptoms. No other pedal complaints at this time. Objective Data Objective Data Vital Signs: Vital Signs Temp Pulse Resp BP 97.3 F L 83 18 136/100 H 10/26/24 13:06 10/26/24 13:06 10/26/24 13:06 10/26/24 13:06 Lab / Micro Data Micro: Microbiology 10/12/24 09:52 Ulcer, Decubitus - Left Foot Gram Stain - Final 10/12/24 09:52 Ulcer, Decubitus - Left Foot Wound Culture - Final No growth aerobically. 10/12/24 09:52 Ulcer, Decubitus - Left Foot Anaerobic Culture - Final No anaerobic bacteria isolated. Physical Exam Narrative Vascular: DP and PT pulses are biphasic on Doppler. CFT is brisk. Skin temperature gradient is warm to warm from proximal ankles to distal digit. No focal increase is noted. Diffuse hemosiderin deposits are appreciated to the left lower extremity. No erytherma Neurological: Light touch is intact. Patient responds to painful stimuli. Dermatological: Full-thickness wound to the lateral left foot measuring 2.8 x 1.2 x 0.3 cm. Wound base is fibrogranular nature. Full-thickness wound to the left lateral ankle measuring 1.1 x 0.7 x 0.1 cm. Wound base is granular nature. Excisional debridement down to including subcutaneous tissue of the left foot lateral full-thickness wound with a number 3 mm dermal curette done without incident. Predebridement measurement was eschar. Postdebridement measurement is 2.8 x 1.2 x 0.3 cm. Epi cord 2.0 x 3.0 cm was applied to the left full-thickness ulceration with 100% use. First application. The graft site was free and clear of any infection. The wound/skin graft substitute was dressed with nonadherent bandage secured in place with Steri-Strips followed by bolster dressing as well as a double layer Tubigrip. Excisional debridement down to including subcutaneous tissue of the left lateral leg/ankle full-thickness wound with a number 3 mm dermal curette done without incident. Predebridement measurement was eschar. Postdebridement measurement is 1.1 x 0.7 x 0.1 cm. Muscle skeletal:. Decreased range of motion to the left ankle secondary to osteoarthritis. Mild pain on palpation to both full-thickness wounds to the left lower extremity. No pain with calf pressure. Debridement Note Debridement Note Debridement Free Text: Excisional debridement down to including subcutaneous tissue of the left foot lateral full-thickness wound with a number 3 mm dermal curette done without incident. Predebridement measurement was eschar. Postdebridement measurement is 1.2 x 1.2 x 0.2 cm. Excisional debridement down to including subcutaneous tissue of the left lateral leg/ankle full-thickness wound with a number 3 mm dermal curette done without incident. Predebridement measurement was eschar. Postdebridement measurement is 1.0 x 0.5 x 0.1 cm. Post-Debridement Measurements and Additional Note: Post-Debridement Measurements/Treatment [facility] Nurse 1 - General Ulcer Assessment Start: 10/26/24 13:06 Freq: Status: Active Protocol: [email or web address].LOWEXT Activity Type Activity Date Activity User E-sign Co-sign Detail Recorded Client Recorded Date Recorded By Document 10/26/24 13:06 BILL [id number] 10/26/24 13:12 BILL 10/26/24 13:06 - Today's Visit Information Type of service Follow-up Visit (Physician/[employer] ) Arrival Mode Ambulatory Patient Identification Verified (Name & Yes ) Patient Requires Transmission-Based No Precautions Vital Signs Temperature (97.8 F-99.1 F) 97.3 F L Temperature Source Temporal Pulse Rate (60-100) 83 Pulse Location Monitor Respiratory Rate (12-18) 18 Respiratory rate source Observation Blood Pressure (90/60-120/80) 136/100 H Blood Pressure Mean (mm Hg) 112 Source Monitor Position Semi-Fowlers Blood Pressure Location Left Forearm History Since Last Visit- (Skip if this is Patient's initial visit) Have you changed medications since your Yes last visit? Any new allergies or adverse reactions No Had a fall/change in ADL's that may No increase risk of falls Signs or symptoms of abuse and/or No neglect since last visit Have you been in the hospital since your No last visit? Has dressing in place as prescribed Yes Has compression in place as prescribed Yes Has offloadiing in place as prescribed N/A Experienced any changes in pain level or No management Left Footwear Regular Shoe Right Footwear Regular Shoe Pain Scale: 0-10 Numeric Is Patient Pain Free? Yes WC - Nurse 1 - General Ulcer Measurement Start: 10/26/24 13:06 Freq: Status: Active Protocol: Activity Type Activity Date Activity User E-sign Co-sign Detail Recorded Client Recorded Date Recorded By Document 10/26/24 13:06 BILL [id number] 10/26/24 13:12 BILL 10/26/24 13:06 Wound Center Nurse 1 2-LEFT LATERAL LEG -Combined with other wound No -Current Size (cm) - Length 0.6 -Current Size (cm) - Width 0.5 -Current Size (cm) - Depth 0.1 -Total Square Cm 0.30 -Photo Taken Yes -Epithelialization Medium 34-66% -Tunneling No -Undermining/Tunneling No -Circular Undermining No -Exudate Amt Small -Exudate Type Serosanguineous -Wound Margin Flat & Intact -Granulation Amt None Present (0 %) -Slough/Fibrin Yes -Necrosis Amt Large (67-100%) -Necrotic Tissue Type Adherent Slough -Structure Exposed N/A -Texture (Glenda-wound Skin Appearance) Assessed, Localized Edema -Moisture (Glenda-wound Skin Appearance) Assessed,Dry/ Scaly -Color (Glenda-wound Skin Appearance) Assessed -Temperature (Glenda-wound Skin No Abnormality Appearance) (Pt Warm) -Tenderness on Palpation (Glenda-wound No Skin Appearance) -Ulcer Cleansing Soap and Water -Foul Odor after Cleansing No -Anesthetic Used 5% Lidocaine Gel #1 LT LAT FOOT -Combined with other wound No -Current Size (cm) - Length 1.0 -Current Size (cm) - Width 3.1 -Current Size (cm) - Depth 0.3 -Total Square Cm 3.10 -Photo Taken Yes -Epithelialization Small 1-33% -Tunneling No -Undermining/Tunneling No -Circular Undermining No -Exudate Amt Medium -Exudate Type Serosanguineous -Wound Margin Flat & Intact -Granulation Amt Medium (34-66%) -Granulation Quality [place] -Slough/Fibrin Yes -Necrosis Amt Small (1-33%) -Necrotic Tissue Type Adherent Slough -Structure Exposed N/A -Texture (Glenda-wound Skin Appearance) Assessed, Excoriation, Localized Edema -Moisture (Glenda-wound Skin Appearance) Assessed,Dry/ Scaly -Color (Glenda-wound Skin Appearance) No Abnormality, Assessed -Temperature (Glenda-wound Skin No Abnormality Appearance) (Pt Warm) -Tenderness on Palpation (Glenda-wound No Skin Appearance) -Ulcer Cleansing Soap and Water -Foul Odor after Cleansing No -Anesthetic Used 5% Lidocaine Gel Lower Limb Edema Present Yes Left Calf (cm) 40.5 Left Ankle (cm) 24.6 WC - Nurse 2 - General Ulcer CM Notes Start: 10/26/24 13:06 Freq: Status: Active Protocol: Activity Type Activity Date Activity User E-sign Co-sign Detail Recorded Client Recorded Date Recorded By Document 10/26/24 13:18 [email or web address] [id number] 10/26/24 13:23 10/26/24 13:18 Wound Center Nurse 2 2-LEFT LATERAL LEG -Time 13:19 -Correct Patient Yes -Correct Side, Site, Position Yes -Correct Procedure Yes -Procedure Performed Yes -Type of Procedure Debridement -Clinical Debridement Subcutaneous -Tissue Removed Subcutaneous -Post Debridement (cm) - Length 1.1 -Post Debridement (cm) - Width 0.7 -Post Debridement (cm) - Depth 0.1 -Total Square (Post) (cm) 0.77 -Area of Debridement (cm) - Length 1.1 -Area of Debridement (cm) - Width 0.7 -Total Square (Area) (cm) 0.77 -Tunneling No -Undermining/Tunneling No -Circular Undermining No -Wound/Ulcer Outcome Not Healed -Ulcer Cleansing Rinsed/ Irrigated with Saline -Foul Odor after Cleansing No -Bioengineered Tissue No -Bleeding Controlled with Pressure -Treatment Response Procedure Tolerated Well -Offloading No -Debridement - Subq, 1st 20sq cm Yes #1 LT LAT FOOT -Time 13:20 -Correct Patient Yes -Correct Side, Site, Position Yes -Correct Procedure Yes -Procedure Performed Yes -Type of Procedure Debridement -Clinical Debridement Subcutaneous -Tissue Removed Subcutaneous -Post Debridement (cm) - Length 2.8 -Post Debridement (cm) - Width 1.2 -Post Debridement (cm) - Depth 0.3 -Total Square (Post) (cm) 3.36 -Area of Debridement (cm) - Length 2.8 -Area of Debridement (cm) - Width 1.2 -Total Square (Area) (cm) 3.36 -Tunneling No -Undermining/Tunneling No -Circular Undermining No -Wound/Ulcer Outcome Not Healed -Ulcer Cleansing Rinsed/ Irrigated with Saline -Foul Odor after Cleansing No -Bioengineered Tissue Yes -Type of Bioengineered Tissue Epicord -Expiration Date 01/21/29 -Product Lot Number [id number] -Percent Used 100 -Lot number of Saline Used [id number] -Bleeding Controlled with Pressure -Treatment Response Procedure Tolerated Well -Offloading No -Debridement - Subq, 1st 20sq cm No -Apply Skin Sub - 1st 25 sq cm - Feet 1 -Epicord Application 1-4 (per sq cm) 6 Pain Scale: 0-10 Numeric Is Patient Pain Free? Yes - Nurse 3 - General Ulcer D/C NN Start: 10/26/24 13:06 Freq: Status: Active Protocol: Activity Type Activity Date Activity User E-sign Co-sign Detail Recorded Client Recorded Date Recorded By Document 10/26/24 13:32 DL [id number] 10/26/24 13:33 DL 10/26/24 13:32 Wound Care Center Nurse 3 2-LEFT LATERAL LEG -Ulcer Cleansing Not Cleansed -Other Dressing Epifix -Primary Dressing Covered/Secured with Dry Gauze & Roll Gauze, Secured with Tape #1 LT LAT FOOT -Ulcer Cleansing Not Cleansed -Other Dressing Epifix -Primary Dressing Covered/Secured with Dry Gauze & Roll Gauze, Secured with Tape LLE -Tubular Bandage Double Layer -Size of Tubigrip Used Size E -Size E ($) 2 Treatment Response Procedure Tolerated Well Pain Scale: 0-10 Numeric Is Patient Pain Free? Yes - Visit Discharge Discharge Condition Stable Ambulatory Status Ambulatory,Cane Transportation Private Auto Assessment/Plan Assessment/Plan (1) Non-pressure chronic ulcer of other part of left foot with fat layer exposed: CODE(S): L97.522 - Non-pressure chronic ulcer of other part of left foot with fat layer exposed PLAN: Patient was examined and evaluated. All findings were discussed with the patient. All questions were answered to the patient's satisfaction. Excisional debridement down to including subcutaneous tissue of the left foot lateral full-thickness wound with a number 3 mm dermal curette done without incident. Predebridement measurement was eschar. Postdebridement measurement is 2.8 x 1.2 x 0.3 cm. Epi cord 2.0 x 3.0 cm was applied to the left full-thickness ulceration with 100% use. First application. The graft site was free and clear of any infection. The wound/skin graft substitute was dressed with nonadherent bandage secured in place with Steri-Strips followed by bolster dressing as well as a double layer Tubigrip. Excisional debridement down to including subcutaneous tissue of the left lateral leg/ankle full-thickness wound with a number 3 mm dermal curette done without incident. Predebridement measurement was eschar. Postdebridement measurement is 1.1 x 0.7 x 0.1 cm. Patient will leave the dressing clean dry and intact. Educate the patient continue to rest and elevate his legs as much as possible. Patient ask if he can move 10 yards of dirt over the weekend and I told him that would be a bad idea as it will cause sweating to the left lower extremity and possible breakdown of skin causing a wound and not allow the amniotic skin graft to provide the healing factors that the patient needs to heal his full-thickness wound. After discussion with this he and his are both understanding of this and will be compliant with their instructions. Follow-up at the wound care center with Dr. Ennis in 1 week. (2) Non-pressure chronic ulcer of left ankle with fat layer exposed: CODE(S): L97.322 - Non-pressure chronic ulcer of left ankle with fat layer exposed (3) Other specified peripheral vascular diseases: CODE(S): I73.89 - Other specified peripheral vascular diseases
--- NOTE | 2024-10-27 09:49 | WC ---
PHOTO-LEFT LATERAL LEG 10/26/24
[2024-11-02 09:48] VITALS: BP 159/84; PULSE 89; RESP 18; TEMP 36.7
--- NOTE | 2024-11-02 20:25 | PN.PCM_ITS ---
History of Present Illness Date of Service: 11/02/24 Chief Complaint: Full-thickness wound, left foot and ankle. History of Wound: Full-thickness wound to left foot and ankle secondary to venous insufficiency. Patient has extensive history of vascular intervention from Dr. Rock Progress of Wound: Stable full-thickness wound left foot and leg with no sign of infection. Subjective Subjective Patient is a 74-year-old male present to wound care center today follow-up evaluation of full-thickness wound to the left foot leg with amniotic graft substitute. Patient has left the dressing clean dry and intact. He mitts that swelling has improved. Has no pain to left lower extremity. Denies trauma. Denies constitutional symptoms. No other pedal complaints at this time. Objective Data Objective Data Vital Signs: Vital Signs Temp Pulse Resp BP O2 Del Method 98.1 F 89 18 159/84 H Room Air 11/02/24 09:48 11/02/24 09:48 11/02/24 09:48 11/02/24 09:48 11/02/24 09:48 Oxygen Delivery Method Room Air Lab / Micro Data Micro: Microbiology 10/12/24 09:52 Ulcer, Decubitus - Left Foot Gram Stain - Final 10/12/24 09:52 Ulcer, Decubitus - Left Foot Wound Culture - Final No growth aerobically. 10/12/24 09:52 Ulcer, Decubitus - Left Foot Anaerobic Culture - Final No anaerobic bacteria isolated. Physical Exam Narrative Vascular: DP and PT pulses are biphasic on Doppler. CFT is brisk. Skin temperature gradient is warm to warm from proximal ankles to distal digit. No focal increase is noted. Diffuse hemosiderin deposits are appreciated to the left lower extremity. No erytherma Neurological: Light touch is intact. Patient responds to painful stimuli. Dermatological: Full-thickness wound to the lateral left foot measuring 3.0 x 1.0 x 0.2 cm. Wound base is fibrogranular nature. Full-thickness wound to the left lateral ankle measuring 1.2 x 0.5 x 0.2 cm. Wound base is granular nature. Excisional debridement down to including subcutaneous tissue of the left foot lateral full-thickness wound with a number 3 mm dermal curette done without incident. Predebridement measurement was 2.8 x 0.8 x 0.1 cm. Postdebridement measurement is 3.0 x 1.0 x 0.2 cm. Epi cord 2.0 x 3.0 cm was applied to the left full-thickness ulceration with 100% use. Second application. The graft site was free and clear of any infection. The wound/skin graft substitute was dressed with nonadherent bandage secured in place with Steri-Strips followed by bolster dressing as well as a double layer Tubigrip. Excisional debridement down to including subcutaneous tissue of the left lateral leg/ankle full-thickness wound with a number 3 mm dermal curette done without incident. Predebridement measurement was eschar. Postdebridement measurement is 1.2 x 0.5 x 0.2 cm. Muscle skeletal:. Decreased range of motion to the left ankle secondary to osteoarthritis. Mild pain on palpation to both full-thickness wounds to the left lower extremity. No pain with calf pressure. Debridement Note Debridement Note Debridement Free Text: Excisional debridement down to including subcutaneous tissue of the left foot lateral full-thickness wound with a number 3 mm dermal curette done without incident. Predebridement measurement was 2.8 x 0.8 x 0.1 cm. Postdebridement measurement is 3.0 x 1.0 x 0.2 cm. Epi cord 2.0 x 3.0 cm was applied to the left full-thickness ulceration with 100% use. Second application. The graft site was free and clear of any infection. The wound/skin graft substitute was dressed with nonadherent bandage secured in place with Steri-Strips followed by bolster dressing as well as a double layer Tubigrip. Excisional debridement down to including subcutaneous tissue of the left lateral leg/ankle full-thickness wound with a number 3 mm dermal curette done without incident. Predebridement measurement was eschar. Postdebridement measurement is 1.2 x 0.5 x 0.2 cm. Post-Debridement Measurements and Additional Note: Post-Debridement Measurements/Treatment LETY - Nurse 1 - General Ulcer Assessment Start: 10/26/24 13:06 Freq: Status: Active Protocol: LOWEXT Activity Type Activity Date Activity User E-sign Co-sign Detail Recorded Client Recorded Date Recorded By Document 10/26/24 13:06 JF [id number] 10/26/24 13:12 Document 11/02/24 09:48 [id number] 11/02/24 09:51 10/26/24 11/02/24 13:06 09:48 - Today's Visit Information Type of service Follow-up Visit Follow-up Visit (Physician/HYBRID TESTER (Physician/HYBRID TESTER ) ) Arrival Mode Ambulatory Ambulatory Patient Identification Verified (Name & Yes Yes ) Patient Requires Transmission-Based No Precautions Vital Signs Temperature (97.8 F-99.1 F) 97.3 F L 98.1 F Temperature Source Temporal Temporal Pulse Rate (60-100) 83 89 Pulse Location Monitor Monitor Respiratory Rate (12-18) 18 18 Respiratory rate source Observation Observation Oxygen Delivery Method Room Air Blood Pressure (90/60-120/80) 136/100 H 159/84 H Blood Pressure Mean (mm Hg) 112 109 Source Monitor Monitor Position Semi-Fowlers Semi-Fowlers Blood Pressure Location Left Forearm Left Arm History Since Last Visit- (Skip if this is Patient's initial visit) Have you changed medications since your Yes No last visit? Any new allergies or adverse reactions No No Had a fall/change in ADL's that may No No increase risk of falls Signs or symptoms of abuse and/or No No neglect since last visit Have you been in the hospital since your No No last visit? Has dressing in place as prescribed Yes Yes Has compression in place as prescribed Yes Yes Has offloadiing in place as prescribed N/A N/A Experienced any changes in pain level or No No management Left Footwear Regular Shoe Regular Shoe Right Footwear Regular Shoe Regular Shoe Pain Scale: 0-10 Numeric Is Patient Pain Free? Yes Yes - Nurse 1 - General Ulcer Measurement Start: 10/26/24 13:06 Freq: Status: Active Protocol: Activity Type Activity Date Activity User E-sign Co-sign Detail Recorded Client Recorded Date Recorded By Document 10/26/24 13:06 [id number] 10/26/24 13:12 Document 11/02/24 09:48 [id number] 11/02/24 09:51 10/26/24 11/02/24 13:06 09:48 Wound Center Nurse 1 2-LEFT LATERAL LEG -Combined with other wound No -Current Size (cm) - Length 0.6 1.1 -Current Size (cm) - Width 0.5 0.5 -Current Size (cm) - Depth 0.1 0.1 -Total Square Cm 0.30 0.55 -Photo Taken Yes No -Epithelialization Medium 34-66% Medium 34-66% -Tunneling No No -Undermining/Tunneling No No -Circular Undermining No No -Exudate Amt Small None Present -Exudate Type Serosanguineous -Wound Margin Flat & Intact Distinct, Outline Attached -Granulation Amt None Present (0 %) -Slough/Fibrin Yes No -Necrosis Amt Large (67-100%) None Present (0 %) -Necrotic Tissue Type Adherent Slough -Structure Exposed N/A -Texture (Glenda-wound Skin Appearance) Assessed, Assessed Localized Edema -Moisture (Glenda-wound Skin Appearance) Assessed,Dry/ Assessed Scaly -Color (Glenda-wound Skin Appearance) Assessed Assessed -Temperature (Glenda-wound Skin No Abnormality No Abnormality Appearance) (Pt Warm) (Pt Warm) -Tenderness on Palpation (Glenda-wound No Yes Skin Appearance) -Ulcer Cleansing Soap and Water Soap and Water -Foul Odor after Cleansing No No -Anesthetic Used 5% Lidocaine 5% Lidocaine Gel Gel #1 LT LAT FOOT -Combined with other wound No -Current Size (cm) - Length 1.0 1.0 -Current Size (cm) - Width 3.1 0.7 -Current Size (cm) - Depth 0.3 0.1 -Total Square Cm 3.10 0.70 -Photo Taken Yes No -Epithelialization Small 1-33% Medium 34-66% -Tunneling No No -Undermining/Tunneling No No -Circular Undermining No No -Exudate Amt Medium None Present -Exudate Type Serosanguineous -Wound Margin Flat & Intact Distinct, Outline Attached -Granulation Amt Medium (34-66%) Medium (34-66%) -Granulation Quality [place] -Slough/Fibrin Yes No -Necrosis Amt Small (1-33%) None Present (0 %) -Necrotic Tissue Type Adherent Slough -Structure Exposed N/A -Texture (Glenda-wound Skin Appearance) Assessed, Assessed Excoriation, Localized Edema -Moisture (Glenda-wound Skin Appearance) Assessed,Dry/ Assessed Scaly -Color (Glenda-wound Skin Appearance) No Abnormality, Assessed Assessed -Temperature (Glenda-wound Skin No Abnormality No Abnormality Appearance) (Pt Warm) (Pt Warm) -Tenderness on Palpation (Glenda-wound No Yes Skin Appearance) -Ulcer Cleansing Soap and Water Soap and Water -Foul Odor after Cleansing No No -Anesthetic Used 5% Lidocaine 5% Lidocaine Gel Gel Lower Limb Edema Present Yes No Left Calf (cm) 40.5 40.5 Left Ankle (cm) 24.6 24.5 WC - Nurse 2 - General Ulcer CM Notes Start: 10/26/24 13:06 Freq: Status: Active Protocol: Activity Type Activity Date Activity User E-sign Co-sign Detail Recorded Client Recorded Date Recorded By Document 10/26/24 13:18 [id number] 10/26/24 13:23 Document 11/02/24 10:01 [id number] 11/02/24 10:18 10/26/24 11/02/24 13:18 10:01 Wound Center Nurse 2 2-LEFT LATERAL LEG -Time 13:19 10:03 -Correct Patient Yes Yes -Correct Side, Site, Position Yes Yes -Correct Procedure Yes Yes -Procedure Performed Yes Yes -Type of Procedure Debridement Debridement -Clinical Debridement Subcutaneous Subcutaneous -Tissue Removed Subcutaneous Subcutaneous -Post Debridement (cm) - Length 1.1 1.2 -Post Debridement (cm) - Width 0.7 0.5 -Post Debridement (cm) - Depth 0.1 0.2 -Total Square (Post) (cm) 0.77 0.60 -Area of Debridement (cm) - Length 1.1 1.2 -Area of Debridement (cm) - Width 0.7 0.5 -Total Square (Area) (cm) 0.77 0.60 -Tunneling No No -Undermining/Tunneling No No -Circular Undermining No No -Wound/Ulcer Outcome Not Healed Not Healed -Ulcer Cleansing Rinsed/ Rinsed/ Irrigated with Irrigated with Saline Saline -Foul Odor after Cleansing No No -Bioengineered Tissue No No -Bleeding Controlled with Pressure Pressure -Treatment Response Procedure Procedure Tolerated Well Tolerated Well -Offloading No No -Debridement - Subq, 1st 20sq cm Yes Yes #1 LT LAT FOOT -Time 13:20 10:05 -Correct Patient Yes Yes -Correct Side, Site, Position Yes Yes -Correct Procedure Yes Yes -Procedure Performed Yes Yes -Type of Procedure Debridement Debridement -Clinical Debridement Subcutaneous Subcutaneous -Tissue Removed Subcutaneous Subcutaneous -Post Debridement (cm) - Length 2.8 3.0 -Post Debridement (cm) - Width 1.2 1.0 -Post Debridement (cm) - Depth 0.3 0.2 -Total Square (Post) (cm) 3.36 3.00 -Area of Debridement (cm) - Length 2.8 3.0 -Area of Debridement (cm) - Width 1.2 1.0 -Total Square (Area) (cm) 3.36 3.00 -Tunneling No No -Undermining/Tunneling No No -Circular Undermining No No -Wound/Ulcer Outcome Not Healed Not Healed -Ulcer Cleansing Rinsed/ Rinsed/ Irrigated with Irrigated with Saline Saline -Foul Odor after Cleansing No No -Bioengineered Tissue Yes Yes -Type of Bioengineered Tissue Epicord Epicord -Expiration Date 01/21/29 05/21/29 -Product Lot Number [id number] -Percent Used 100 100 -Lot number of Saline Used [id number] -Bleeding Controlled with Pressure Pressure -Treatment Response Procedure Procedure Tolerated Well Tolerated Well -Offloading No No -Debridement - Subq, 1st 20sq cm No No -Apply Skin Sub - 1st 25 sq cm - Feet 1 1 -Epicord Application 1-4 (per sq cm) 6 6 Pain Scale: 0-10 Numeric Is Patient Pain Free? Yes Yes WC - Nurse 3 - General Ulcer D/C NN Start: 10/26/24 13:06 Freq: Status: Active Protocol: Activity Type Activity Date Activity User E-sign Co-sign Detail Recorded Client Recorded Date Recorded By Document 10/26/24 13:32 DL [id number] 10/26/24 13:33 DL Document 11/02/24 10:30 DL [id number] 11/02/24 10:31 DL 10/26/24 11/02/24 13:32 10:30 Wound Care Center Nurse 3 2-LEFT LATERAL LEG -Ulcer Cleansing Not Cleansed Not Cleansed -Other Dressing Epifix Epifix -Primary Dressing Covered/Secured with Dry Gauze & Dry Gauze & Roll Gauze, Roll Gauze, Secured with Secured with Tape Tape #1 LT LAT FOOT -Ulcer Cleansing Not Cleansed -Foul Odor after Cleansing No -Other Dressing Epifix epifix -Primary Dressing Covered/Secured with Dry Gauze & Dry Gauze & Roll Gauze, Roll Gauze, Secured with Secured with Tape Tape -Other Covering ABD LLE -Tubular Bandage Double Layer Double Layer -Size of Tubigrip Used Size E Size E -Size E ($) 2 2 Treatment Response Procedure Procedure Tolerated Well Tolerated Well Pain Scale: 0-10 Numeric Is Patient Pain Free? Yes Yes WC - Visit Discharge Discharge Condition Stable Stable Ambulatory Status Ambulatory,Cane Ambulatory Transportation Private Auto Private Auto Assessment/Plan Assessment/Plan (1) Non-pressure chronic ulcer of other part of left foot with fat layer exposed: CODE(S): L97.522 - Non-pressure chronic ulcer of other part of left foot with fat layer exposed PLAN: Patient was examined and evaluated. All findings were discussed with the patient. All questions were answered to the patient's satisfaction. Excisional debridement down to including subcutaneous tissue of the left foot lateral full-thickness wound with a number 3 mm dermal curette done without incident. Predebridement measurement was 2.8 x 0.8 x 0.1 cm. Postdebridement measurement is 3.0 x 1.0 x 0.2 cm. Epi cord 2.0 x 3.0 cm was applied to the left full-thickness ulceration with 100% use. Second application. The graft site was free and clear of any infection. The wound/skin graft substitute was dressed with nonadherent bandage secured in place with Steri-Strips followed by bolster dressing as well as a double layer Tubigrip. Excisional debridement down to including subcutaneous tissue of the left lateral leg/ankle full-thickness wound with a number 3 mm dermal curette done without incident. Predebridement measurement was eschar. Postdebridement measurement is 1.2 x 0.5 x 0.2 cm. Educated patient to not move any yards of dirt over the weekend to give his wound 1 additional week of healing which she is understanding of. Follow-up at the wound care center with Dr. Ennis in 1 week. (2) Non-pressure chronic ulcer of left ankle with fat layer exposed: CODE(S): L97.322 - Non-pressure chronic ulcer of left ankle with fat layer exposed (3) Other specified peripheral vascular diseases: CODE(S): I73.89 - Other specified peripheral vascular diseases
[2024-11-09 11:23] VITALS: BP 160/73; PULSE 76; RESP 14; TEMP 36.4
--- NOTE | 2024-11-09 13:03 | PN.PCM_ITS ---
History of Present Illness Date of Service: 11/09/24 Chief Complaint: Full-thickness wound, left foot and ankle. History of Wound: Full-thickness wound to left foot and ankle secondary to venous insufficiency. Patient has extensive history of vascular intervention from Dr. Rock Progress of Wound: Stable full-thickness wound left foot and leg with no sign of infection. Subjective Subjective Patient is a 74-year-old male presenting to wound care center follow-up evaluation of full-thickness wound to the lateral left foot and leg. Patient states that he is having some pain to the left foot at the level of the full- thickness wound. He does admit to keeping his leg in a dependent position while watching tennis over the weekend. He denies any strikethrough through the dressing. He is performing dressing changes every other day and states drainage is well-controlled. He denies trauma. Denies constitutional symptoms. No other pedal complaints at this time. Objective Data Objective Data Vital Signs: Vital Signs Temp Pulse Resp BP O2 Del Method 97.6 F L 76 14 160/73 H Room Air 11/09/24 11:23 11/09/24 11:23 11/09/24 11:23 11/09/24 11:23 11/02/24 09:48 Oxygen Delivery Method Room Air Lab / Micro Data Micro: Microbiology 10/12/24 09:52 Ulcer, Decubitus - Left Foot Gram Stain - Final 10/12/24 09:52 Ulcer, Decubitus - Left Foot Wound Culture - Final No growth aerobically. 10/12/24 09:52 Ulcer, Decubitus - Left Foot Anaerobic Culture - Final No anaerobic bacteria isolated. Physical Exam Narrative Vascular: DP and PT pulses are biphasic on Doppler. CFT is brisk. Skin temperature gradient is warm to warm from proximal ankles to distal digit. No focal increase is noted. Diffuse hemosiderin deposits are appreciated to the left lower extremity. Blanchable erythema appreciated to the lateral foot secondary to drainage. No sign of infection. Neurological: Light touch is intact. Patient responds to painful stimuli. Dermatological: Full-thickness wound to the lateral left foot measuring 3.2 x 1.3 x 0.2 cm. Wound base is fibrogranular nature. Full-thickness wound to the left lateral ankle measuring 1.0 x 0.5 x 0.1 cm. Wound base is granular nature. Excisional debridement down to including subcutaneous tissue of the left foot lateral full-thickness wound with a number 3 mm dermal curette done without incident. Predebridement measurement was 3.0 x 1.2 x 0.1 cm. Postdebridement measurement is 3.2 x 1.3 x 0.2 cm. Epi cord 2.0 x 3.0 cm was applied to the left full-thickness ulceration with 100% use. Third application. The graft site was free and clear of any infection. The wound/skin graft substitute was dressed with nonadherent bandage secured in place with Steri-Strips followed by bolster dressing as well as a double layer Tubigrip. Excisional debridement down to including subcutaneous tissue of the left lateral leg/ankle full-thickness wound with a number 3 mm dermal curette done without incident. Predebridement measurement was eschar. Postdebridement measurement is 1.0 x 0.5 x 0.1 cm. Muscle skeletal:. Decreased range of motion to the left ankle secondary to osteoarthritis. Mild pain on palpation to both full-thickness wounds to the left lower extremity. No pain with calf pressure. Debridement Note Debridement Note Debridement Free Text: Excisional debridement down to including subcutaneous tissue of the left foot lateral full-thickness wound with a number 3 mm dermal curette done without incident. Predebridement measurement was 3.0 x 1.2 x 0.1 cm. Postdebridement measurement is 3.2 x 1.3 x 0.2 cm. Epi cord 2.0 x 3.0 cm was applied to the left full-thickness ulceration with 100% use. Third application. The graft site was free and clear of any infection. The wound/skin graft substitute was dressed with nonadherent bandage secured in place with Steri-Strips followed by bolster dressing as well as a double layer Tubigrip. Excisional debridement down to including subcutaneous tissue of the left lateral leg/ankle full-thickness wound with a number 3 mm dermal curette done without incident. Predebridement measurement was eschar. Postdebridement measurement is 1.0 x 0.5 x 0.1 cm. Post-Debridement Measurements and Additional Note: Post-Debridement Measurements/Treatment LETY - Nurse 1 - General Ulcer Assessment Start: 10/26/24 13:06 Freq: Status: Active Protocol: LOWEXT Activity Type Activity Date Activity User E-sign Co-sign Detail Recorded Client Recorded Date Recorded By Document 10/26/24 13:06 JF [id number] 10/26/24 13:12 JF Document 11/02/24 09:48 GM [id number] 11/02/24 09:51 GM Document 11/09/24 11:23 ML [id number] 11/09/24 11:29 ML 10/26/24 11/02/24 11/09/24 13:06 09:48 11:23 - Today's Visit Information Type of service Follow-up Visit Follow-up Visit Follow-up Visit (Physician/SAMPLE FINISHER (Physician/SAMPLE FINISHER (Physician/SAMPLE FINISHER ) ) ) Arrival Mode Ambulatory Ambulatory Ambulatory Patient Identification Verified (Name & Yes Yes Yes ) Patient Requires Transmission-Based No No Precautions Vital Signs Temperature (97.8 F-99.1 F) 97.3 F L 98.1 F 97.6 F L Temperature Source Temporal Temporal Temporal Pulse Rate (60-100) 83 89 76 Pulse Location Monitor Monitor Monitor Respiratory Rate (12-18) 18 18 14 Respiratory rate source Observation Observation Observation Oxygen Delivery Method Room Air Blood Pressure (90/60-120/80) 136/100 H 159/84 H 160/73 H Blood Pressure Mean (mm Hg) 112 109 102 Source Monitor Monitor Monitor Position Semi-Fowlers Semi-Fowlers Sitting Blood Pressure Location Left Forearm Left Arm Left Arm History Since Last Visit- (Skip if this is Patient's initial visit) Have you changed medications since your Yes No No last visit? Any new allergies or adverse reactions No No No Had a fall/change in ADL's that may No No No increase risk of falls Signs or symptoms of abuse and/or No No No neglect since last visit Have you been in the hospital since your No No No last visit? Has dressing in place as prescribed Yes Yes Yes Has compression in place as prescribed Yes Yes Yes Has offloadiing in place as prescribed N/A N/A N/A Experienced any changes in pain level or No No No management Left Footwear Regular Shoe Regular Shoe Right Footwear Regular Shoe Regular Shoe Pain Scale: 0-10 Numeric Is Patient Pain Free? Yes Yes Yes - Nurse 1 - General Ulcer Measurement Start: 10/26/24 13:06 Freq: Status: Active Protocol: Activity Type Activity Date Activity User E-sign Co-sign Detail Recorded Client Recorded Date Recorded By Document 10/26/24 13:06 JF [id number] 10/26/24 13:12 Document 11/02/24 09:48 GM [id number] 11/02/24 09:51 GM Document 11/09/24 11:23 ML [id number] 11/09/24 11:29 ML 10/26/24 11/02/24 11/09/24 13:06 09:48 11:23 Wound Center Nurse 1 2-LEFT LATERAL LEG -Combined with other wound No -Current Size (cm) - Length 0.6 1.1 0.5 -Current Size (cm) - Width 0.5 0.5 0.5 -Current Size (cm) - Depth 0.1 0.1 0.1 -Total Square Cm 0.30 0.55 0.25 -Photo Taken Yes No -Epithelialization Medium 34-66% Medium 34-66% -Tunneling No No -Undermining/Tunneling No No -Circular Undermining No No -Exudate Amt Small None Present Small -Exudate Type Serosanguineous Serosanguineous -Wound Margin Flat & Intact Distinct, Distinct, Outline Outline Attached Attached -Granulation Amt None Present (0 Small (1-33%) %) -Slough/Fibrin Yes No Yes -Necrosis Amt Large (67-100%) None Present (0 Small (1-33%) %) -Necrotic Tissue Type Adherent Slough Adherent Slough -Structure Exposed N/A -Texture (Glenda-wound Skin Appearance) Assessed, Assessed Assessed Localized Edema -Moisture (Glenda-wound Skin Appearance) Assessed,Dry/ Assessed Assessed Scaly -Color (Glenda-wound Skin Appearance) Assessed Assessed Assessed -Temperature (Glenda-wound Skin No Abnormality No Abnormality No Abnormality Appearance) (Pt Warm) (Pt Warm) (Pt Warm) -Tenderness on Palpation (Glenda-wound No Yes No Skin Appearance) -Ulcer Cleansing Soap and Water Soap and Water Soap and Water -Foul Odor after Cleansing No No No -Anesthetic Used 5% Lidocaine 5% Lidocaine 4% Lidocaine Gel Gel Solution #1 LT LAT FOOT -Combined with other wound No -Current Size (cm) - Length 1.0 1.0 2.5 -Current Size (cm) - Width 3.1 0.7 3 -Current Size (cm) - Depth 0.3 0.1 0.2 -Total Square Cm 3.10 0.70 7.5 -Photo Taken Yes No -Epithelialization Small 1-33% Medium 34-66% -Tunneling No No -Undermining/Tunneling No No -Circular Undermining No No -Exudate Amt Medium None Present Medium -Exudate Type Serosanguineous Serosanguineous -Wound Margin Flat & Intact Distinct, Distinct, Outline Outline Attached Attached -Granulation Amt Medium (34-66%) Medium (34-66%) Medium (34-66%) -Granulation Quality Ama Ama -Slough/Fibrin Yes No Yes -Necrosis Amt Small (1-33%) None Present (0 Medium (34-66%) %) -Necrotic Tissue Type Adherent Slough Adherent Slough -Structure Exposed N/A -Texture (Glenda-wound Skin Appearance) Assessed, Assessed Assessed Excoriation, Localized Edema -Moisture (Glenda-wound Skin Appearance) Assessed,Dry/ Assessed Assessed, Scaly Maceration -Color (Glenda-wound Skin Appearance) No Abnormality, Assessed Assessed Assessed -Temperature (Glenda-wound Skin No Abnormality No Abnormality No Abnormality Appearance) (Pt Warm) (Pt Warm) (Pt Warm) -Tenderness on Palpation (Glenda-wound No Yes No Skin Appearance) -Ulcer Cleansing Soap and Water Soap and Water Soap and Water -Foul Odor after Cleansing No No No -Anesthetic Used 5% Lidocaine 5% Lidocaine 4% Lidocaine Gel Gel Solution Lower Limb Edema Present Yes No Left Calf (cm) 40.5 40.5 Left Ankle (cm) 24.6 24.5 WC - Nurse 2 - General Ulcer CM Notes Start: 10/26/24 13:06 Freq: Status: Active Protocol: Activity Type Activity Date Activity User E-sign Co-sign Detail Recorded Client Recorded Date Recorded By Document 10/26/24 13:18 JF [id number] 10/26/24 13:23 JF Document 11/02/24 10:01 JF [id number] 11/02/24 10:18 JF Document 11/09/24 11:44 DS [id number] 11/09/24 11:46 DS 10/26/24 11/02/24 11/09/24 13:18 10:01 11:44 Wound Center Nurse 2 2-LEFT LATERAL LEG -Time 13:19 10:03 11:44 -Correct Patient Yes Yes Yes -Correct Side, Site, Position Yes Yes Yes -Correct Procedure Yes Yes Yes -Procedure Performed Yes Yes Yes -Type of Procedure Debridement Debridement Debridement -Clinical Debridement Subcutaneous Subcutaneous Subcutaneous -Tissue Removed Subcutaneous Subcutaneous Subcutaneous -Post Debridement (cm) - Length 1.1 1.2 1.0 -Post Debridement (cm) - Width 0.7 0.5 0.5 -Post Debridement (cm) - Depth 0.1 0.2 0.1 -Total Square (Post) (cm) 0.77 0.60 0.50 -Area of Debridement (cm) - Length 1.1 1.2 1.0 -Area of Debridement (cm) - Width 0.7 0.5 0.5 -Total Square (Area) (cm) 0.77 0.60 0.50 -Tunneling No No No -Undermining/Tunneling No No No -Circular Undermining No No No -Wound/Ulcer Outcome Not Healed Not Healed Not Healed -Ulcer Cleansing Rinsed/ Rinsed/ Rinsed/ Irrigated with Irrigated with Irrigated with Saline Saline Saline -Foul Odor after Cleansing No No No -Bioengineered Tissue No No No -Bleeding Controlled with Pressure Pressure Pressure -Treatment Response Procedure Procedure Procedure Tolerated Well Tolerated Well Tolerated Well -Offloading No No -Debridement - Subq, 1st 20sq cm Yes Yes Yes #1 LT LAT FOOT -Time 13:20 10:05 11:45 -Correct Patient Yes Yes Yes -Correct Side, Site, Position Yes Yes Yes -Correct Procedure Yes Yes Yes -Procedure Performed Yes Yes Yes -Type of Procedure Debridement Debridement Debridement -Clinical Debridement Subcutaneous Subcutaneous Subcutaneous -Tissue Removed Subcutaneous Subcutaneous Subcutaneous -Post Debridement (cm) - Length 2.8 3.0 3.2 -Post Debridement (cm) - Width 1.2 1.0 1.3 -Post Debridement (cm) - Depth 0.3 0.2 0.2 -Total Square (Post) (cm) 3.36 3.00 4.16 -Area of Debridement (cm) - Length 2.8 3.0 3.2 -Area of Debridement (cm) - Width 1.2 1.0 1.3 -Total Square (Area) (cm) 3.36 3.00 4.16 -Tunneling No No No -Undermining/Tunneling No No No -Circular Undermining No No No -Wound/Ulcer Outcome Not Healed Not Healed Not Healed -Ulcer Cleansing Rinsed/ Rinsed/ Rinsed/ Irrigated with Irrigated with Irrigated with Saline Saline Saline -Foul Odor after Cleansing No No No -Bioengineered Tissue Yes Yes No -Type of Bioengineered Tissue Epicord Epicord Epicord -Expiration Date 01/21/29 05/21/29 06/21/29 -Product Lot Number [id number] -Percent Used 100 100 100 -Lot number of Saline Used [id number] -Bleeding Controlled with Pressure Pressure Pressure -Treatment Response Procedure Procedure Procedure Tolerated Well Tolerated Well Tolerated Well -Offloading No No -Debridement - Subq, 1st 20sq cm No No No -Apply Skin Sub - 1st 25 sq cm - Feet 1 1 1 -Epicord Application 1-4 (per sq cm) 6 6 6 Pain Scale: 0-10 Numeric Is Patient Pain Free? Yes Yes Yes WC - Nurse 3 - General Ulcer D/C NN Start: 10/26/24 13:06 Freq: Status: Active Protocol: Activity Type Activity Date Activity User E-sign Co-sign Detail Recorded Client Recorded Date Recorded By Document 10/26/24 13:32 DL [id number] 10/26/24 13:33 DL Document 11/02/24 10:30 DL [id number] 11/02/24 10:31 DL Document 11/09/24 11:58 GM [id number] 11/09/24 11:59 GM 10/26/24 11/02/24 11/09/24 13:32 10:30 11:58 Wound Care Center Nurse 3 2-LEFT LATERAL LEG -Ulcer Cleansing Not Cleansed Not Cleansed Not Cleansed -Foul Odor after Cleansing No -Negative Pressure Wound Therapy N/A -Other Dressing Epifix Epifix -Primary Dressing Covered/Secured with Dry Gauze & Dry Gauze & Dry Gauze,Dry Roll Gauze, Roll Gauze, Gauze & Roll Secured with Secured with Gauze,Secured Tape Tape with Tape #1 LT LAT FOOT -Ulcer Cleansing Not Cleansed Not Cleansed -Foul Odor after Cleansing No No -Negative Pressure Wound Therapy N/A -Other Dressing Epifix epifix -Primary Dressing Covered/Secured with Dry Gauze & Dry Gauze & Dry Gauze Roll Gauze, Roll Gauze, Secured with Secured with Tape Tape -Other Covering ABD LLE -Tubular Bandage Double Layer Double Layer Double Layer -Size of Tubigrip Used Size E Size E Size E -Size E ($) 2 2 2 Treatment Response Procedure Procedure Tolerated Well Tolerated Well Pain Scale: 0-10 Numeric Is Patient Pain Free? Yes Yes Yes WC - Visit Discharge Discharge Condition Stable Stable Stable Ambulatory Status Ambulatory,Cane Ambulatory Ambulatory Transportation Private Auto Private Auto Private Auto Assessment/Plan Assessment/Plan (1) Non-pressure chronic ulcer of other part of left foot with fat layer exposed: CODE(S): L97.522 - Non-pressure chronic ulcer of other part of left foot with fat layer exposed PLAN: Patient was examined and evaluated. All findings were discussed with the patient. All questions were answered to the patient's satisfaction. Excisional debridement down to including subcutaneous tissue of the left foot la teral full-thickness wound with a number 3 mm dermal curette done without incident. Predebridement measurement was 3.0 x 1.2 x 0.1 cm. Postdebridement measurement is 3.2 x 1.3 x 0.2 cm. Epi cord 2.0 x 3.0 cm was applied to the left full-thickness ulceration with 100% use. Third application. The graft site was free and clear of any infection. The wound/skin graft substitute was dressed with nonadherent bandage secured in place with Steri-Strips followed by bolster dressing as well as a double layer Tubigrip. Excisional debridement down to including subcutaneous tissue of the left lateral leg/ankle full-thickness wound with a number 3 mm dermal curette done without incident. Predebridement measurement was eschar. Postdebridement measurement is 1.0 x 0.5 x 0.1 cm. During the patient's visit today strong education regarding the need to elevate 4 inches above his heart were discussed with the patient and his in great detail. I did ask if the patient would be interested in being placed in a multilayer bandage which he declined and will stick with the Tubigrip. I discussed with the patient that the Tubigrip may not be strong enough due to his venous insufficiency and multiple venous/leg procedures that he has had in the past. I agreed with the patient that we will try 1 more round of double layer Tubigrip and if he is not improving and still shows evidence of drainage and burning to the skin secondary to the extracellular fluid he will need to be placed in either a multilayer compression bandage or a Unna boot. Patient will consider this next week but will think about it until his follow-up. Follow-up at the wound care center with Dr. Ennis in 1 week. (2) Non-pressure chronic ulcer of left ankle with fat layer exposed: CODE(S): L97.322 - Non-pressure chronic ulcer of left ankle with fat layer exposed (3) Other specified peripheral vascular diseases: CODE(S): I73.89 - Other specified peripheral vascular diseases
--- NOTE | 2024-11-09 14:23 | WC ---
PHOTO-LEFT LATERAL 11/09/24
--- NOTE | 2024-11-10 08:42 | WC ---
PHOTO-LEFT FOOT 11/09/24
[2024-11-16 11:15] VITALS: BP 169/84; PULSE 75; RESP 16; TEMP 36.7
--- NOTE | 2024-11-16 12:55 | PCM.WC.PN ---
History of Present Illness Date of Service: 11/16/24 Chief Complaint: Full-thickness wound, left foot and ankle. History of Wound: Full-thickness wound to left foot and ankle secondary to venous insufficiency. Patient has extensive history of vascular intervention from Dr. Rock Progress of Wound: Evidence of breakdown of skin with more draining to the lateral left foot secondary to venous insufficiency. Subjective Subjective Patient is a 74-year-old male presenting to clinic today for follow-up evaluation of full-thickness wound to the left foot and left leg. Patient states that he has noticed more draining to the foot and is concerned for infection. He states that he has been having pain ever since Thursday until his follow-up appointment today. He has been taking tramadol that he was prescribed for his hip from his orthopedic surgeon. He has been doing every other day dressing changes due to the drainage. He does admit to elevating and decreasing his activity. He denies any trauma to the area. Denies constitutional symptoms. No other pedal complaints at this time. Objective Data Objective Data Vital Signs: Vital Signs Temp Pulse Resp BP O2 Del Method 98.0 F 75 16 169/84 H Room Air 11/16/24 11:15 11/16/24 11:15 11/16/24 11:15 11/16/24 11:15 11/16/24 11:15 Oxygen Delivery Method Room Air Lab / Micro Data Micro: Microbiology 10/12/24 09:52 Ulcer, Decubitus - Left Foot Gram Stain - Final 10/12/24 09:52 Ulcer, Decubitus - Left Foot Wound Culture - Final No growth aerobically. 10/12/24 09:52 Ulcer, Decubitus - Left Foot Anaerobic Culture - Final No anaerobic bacteria isolated. Physical Exam Narrative Vascular: DP and PT pulses are biphasic on Doppler. CFT is brisk. Skin temperature gradient is warm to warm from proximal ankles to distal digit. No focal increase is noted. Diffuse hemosiderin deposits are appreciated to the left lower extremity. Evidence of blanchable erythema appreciated to the lateral foot with serous drainage. Neurological: Light touch is intact. Patient responds to painful stimuli. Dermatological: Full-thickness wound to the lateral left foot measuring 3.2 x 1.6 x 0.2 cm. Wound base is fibrogranular nature. Full-thickness wound to the lateral left ankle shows evidence of sanguinous crust. Excisional debridement down to including subcutaneous tissue of the left foot lateral full-thickness wound with a number 3 mm dermal curette done without incident. Predebridement measurement was 3.1 x 1.4 x 0.1 cm. Postdebridement measurement is 3.2 x 1.6 x 0.2 cm. Muscle skeletal: Decreased range of motion to the left ankle secondary to osteoarthritis. Mild pain on palpation to both full-thickness wounds to the left lower extremity. No pain with calf pressure. Debridement Note Debridement Note Debridement Free Text: Excisional debridement down to including subcutaneous tissue of the left foot lateral full-thickness wound with a number 3 mm dermal curette done without incident. Predebridement measurement was 3.1 x 1.4 x 0.1 cm. Postdebridement measurement is 3.2 x 1.6 x 0.2 cm. Post-Debridement Measurements and Additional Note: Post-Debridement Measurements/Treatment - Nurse 1 - General Ulcer Assessment Start: 10/26/24 13:06 Freq: Status: Active Protocol: ENDER Activity Type Activity Date Activity User E-sign Co-sign Detail Recorded Client Recorded Date Recorded By Document 10/26/24 13:06 [id number] 10/26/24 13:12 Document 11/02/24 09:48 [id number] 11/02/24 09:51 Document 11/09/24 11:23 ML [id number] 11/09/24 11:29 ML Document 11/16/24 11:15 [id number] 11/16/24 11:18 10/26/24 11/02/24 11/09/24 13:06 09:48 11:23 - Today's Visit Information Type of service Follow-up Visit Follow-up Visit Follow-up Visit (Physician/SENIOR AUTOMATION ENGINEER (Physician/SENIOR AUTOMATION ENGINEER (Physician/SENIOR AUTOMATION ENGINEER ) ) ) Arrival Mode Ambulatory Ambulatory Ambulatory Transfer Assistance Patient Identification Verified (Name & Yes Yes Yes ) Patient Requires Transmission-Based No No Precautions Vital Signs Temperature (97.8 F-99.1 F) 97.3 F L 98.1 F 97.6 F L Temperature Source Temporal Temporal Temporal Pulse Rate (60-100) 83 89 76 Pulse Location Monitor Monitor Monitor Respiratory Rate (12-18) 18 18 14 Respiratory rate source Observation Observation Observation Oxygen Delivery Method Room Air Blood Pressure (90/60-120/80) 136/100 H 159/84 H 160/73 H Blood Pressure Mean (mm Hg) 112 109 102 Source Monitor Monitor Monitor Position Semi-Fowlers Semi-Fowlers Sitting Blood Pressure Location Left Forearm Left Arm Left Arm History Since Last Visit- (Skip if this is Patient's initial visit) Have you changed medications since your Yes No No last visit? Any new allergies or adverse reactions No No No Had a fall/change in ADL's that may No No No increase risk of falls Signs or symptoms of abuse and/or No No No neglect since last visit Have you been in the hospital since your No No No last visit? Has dressing in place as prescribed Yes Yes Yes Has compression in place as prescribed Yes Yes Yes Has offloadiing in place as prescribed N/A N/A N/A Experienced any changes in pain level or No No No management Left Footwear Regular Shoe Regular Shoe Right Footwear Regular Shoe Regular Shoe Pain Scale: 0-10 Numeric Is Patient Pain Free? Yes Yes Yes 11/16/24 11:15 WC - Today's Visit Information Type of service Follow-up Visit (Physician/SENIOR AUTOMATION ENGINEER ) Arrival Mode Ambulatory Transfer Assistance None Patient Identification Verified (Name & Yes ) Patient Requires Transmission-Based Precautions Vital Signs Temperature (97.8 F-99.1 F) 98.0 F Temperature Source Temporal Pulse Rate (60-100) 75 Pulse Location Monitor Respiratory Rate (12-18) 16 Respiratory rate source Observation Oxygen Delivery Method Room Air Blood Pressure (90/60-120/80) 169/84 H Blood Pressure Mean (mm Hg) 112 Source Monitor Position Sitting Blood Pressure Location Left Arm History Since Last Visit- (Skip if this is Patient's initial visit) Have you changed medications since your No last visit? Any new allergies or adverse reactions No Had a fall/change in ADL's that may No increase risk of falls Signs or symptoms of abuse and/or No neglect since last visit Have you been in the hospital since your last visit? Has dressing in place as prescribed Yes Has compression in place as prescribed Yes Has offloadiing in place as prescribed N/A Experienced any changes in pain level or Yes management Left Footwear Regular Shoe Right Footwear Regular Shoe Pain Scale: 0-10 Numeric Is Patient Pain Free? Yes - Nurse 1 - General Ulcer Measurement Start: 10/26/24 13:06 Freq: Status: Active Protocol: Activity Type Activity Date Activity User E-sign Co-sign Detail Recorded Client Recorded Date Recorded By Document 10/26/24 13:06 JF [id number] 10/26/24 13:12 JF Document 11/02/24 09:48 GM [id number] 11/02/24 09:51 GM Document 11/09/24 11:23 ML [id number] 11/09/24 11:29 ML Document 11/16/24 11:15 GM [id number] 11/16/24 11:18 GM 10/26/24 11/02/24 11/09/24 13:06 09:48 11:23 Wound Center Nurse 1 2-LEFT LATERAL LEG -Combined with other wound No -Current Size (cm) - Length 0.6 1.1 0.5 -Current Size (cm) - Width 0.5 0.5 0.5 -Current Size (cm) - Depth 0.1 0.1 0.1 -Total Square Cm 0.30 0.55 0.25 -Date of Last Picture (Recall this field) -Photo Taken Yes No -Epithelialization Medium 34-66% Medium 34-66% -Tunneling No No -Undermining/Tunneling No No -Circular Undermining No No -Exudate Amt Small None Present Small -Exudate Type Serosanguineous Serosanguineous -Wound Margin Flat & Intact Distinct, Distinct, Outline Outline Attached Attached -Granulation Amt None Present (0 Small (1-33%) %) -Granulation Quality -Slough/Fibrin Yes No Yes -Necrosis Amt Large (67-100%) None Present (0 Small (1-33%) %) -Necrotic Tissue Type Adherent Slough Adherent Slough -Structure Exposed N/A -Texture (Glenda-wound Skin Appearance) Assessed, Assessed Assessed Localized Edema -Moisture (Glenda-wound Skin Appearance) Assessed,Dry/ Assessed Assessed Scaly -Color (Glenda-wound Skin Appearance) Assessed Assessed Assessed -Temperature (Glenda-wound Skin No Abnormality No Abnormality No Abnormality Appearance) (Pt Warm) (Pt Warm) (Pt Warm) -Tenderness on Palpation (Glenda-wound No Yes No Skin Appearance) -Ulcer Cleansing Soap and Water Soap and Water Soap and Water -Foul Odor after Cleansing No No No -Anesthetic Used 5% Lidocaine 5% Lidocaine 4% Lidocaine Gel Gel Solution #1 LT LAT FOOT -Combined with other wound No -Current Size (cm) - Length 1.0 1.0 2.5 -Current Size (cm) - Width 3.1 0.7 3 -Current Size (cm) - Depth 0.3 0.1 0.2 -Total Square Cm 3.10 0.70 7.5 -Date of Last Picture (Recall this field) -Photo Taken Yes No -Epithelialization Small 1-33% Medium 34-66% -Tunneling No No -Undermining/Tunneling No No -Circular Undermining No No -Exudate Amt Medium None Present Medium -Exudate Type Serosanguineous Serosanguineous -Wound Margin Flat & Intact Distinct, Distinct, Outline Outline Attached Attached -Granulation Amt Medium (34-66%) Medium (34-66%) Medium (34-66%) -Granulation Quality [place] -Slough/Fibrin Yes No Yes -Necrosis Amt Small (1-33%) None Present (0 Medium (34-66%) %) -Necrotic Tissue Type Adherent Slough Adherent Slough -Structure Exposed N/A -Texture (Glenda-wound Skin Appearance) Assessed, Assessed Assessed Excoriation, Localized Edema -Moisture (Glenda-wound Skin Appearance) Assessed,Dry/ Assessed Assessed, Scaly Maceration -Color (Glenda-wound Skin Appearance) No Abnormality, Assessed Assessed Assessed -Temperature (Glenda-wound Skin No Abnormality No Abnormality No Abnormality Appearance) (Pt Warm) (Pt Warm) (Pt Warm) -Tenderness on Palpation (Glneda-wound No Yes No Skin Appearance) -Ulcer Cleansing Soap and Water Soap and Water Soap and Water -Foul Odor after Cleansing No No No -Anesthetic Used 5% Lidocaine 5% Lidocaine 4% Lidocaine Gel Gel Solution Lower Limb Edema Present Yes No Left Calf (cm) 40.5 40.5 Left Ankle (cm) 24.6 24.5 11/16/24 11:15 Wound Center Nurse 1 2-LEFT LATERAL LEG -Combined with other wound -Current Size (cm) - Length 0.9 -Current Size (cm) - Width 0.5 -Current Size (cm) - Depth 0.2 -Total Square Cm 0.45 -Date of Last Picture (Recall this 11/16/24 field) -Photo Taken Yes -Epithelialization Medium 34-66% -Tunneling No -Undermining/Tunneling No -Circular Undermining No -Exudate Amt None Present -Exudate Type -Wound Margin Distinct, Outline Attached -Granulation Amt Medium (34-66%) -Granulation Quality [place] -Slough/Fibrin No -Necrosis Amt None Present (0 %) -Necrotic Tissue Type -Structure Exposed -Texture (Glenda-wound Skin Appearance) Assessed -Moisture (Glenda-wound Skin Appearance) Assessed -Color (Glenda-wound Skin Appearance) Assessed -Temperature (Glenda-wound Skin No Abnormality Appearance) (Pt Warm) -Tenderness on Palpation (Glenda-wound No Skin Appearance) -Ulcer Cleansing Soap and Water -Foul Odor after Cleansing No -Anesthetic Used 5% Lidocaine Gel #1 LT LAT FOOT -Combined with other wound -Current Size (cm) - Length 1.0 -Current Size (cm) - Width 2.0 -Current Size (cm) - Depth 0.2 -Total Square Cm 2.00 -Date of Last Picture (Recall this 11/16/24 field) -Photo Taken Yes -Epithelialization None Present -Tunneling No -Undermining/Tunneling No -Circular Undermining No -Exudate Amt Large -Exudate Type Yellow/Green -Wound Margin Distinct, Outline Attached -Granulation Amt Small (1-33%) -Granulation Quality -Slough/Fibrin No -Necrosis Amt -Necrotic Tissue Type -Structure Exposed -Texture (Glenda-wound Skin Appearance) Assessed, Excoriation -Moisture (Glenda-wound Skin Appearance) Assessed, Maceration -Color (Glenda-wound Skin Appearance) Assessed, Erythema -Temperature (Glenda-wound Skin No Abnormality Appearance) (Pt Warm) -Tenderness on Palpation (Glenda-wound Yes Skin Appearance) -Ulcer Cleansing Soap and Water -Foul Odor after Cleansing No -Anesthetic Used 5% Lidocaine Gel Lower Limb Edema Present No Left Calf (cm) 41 Left Ankle (cm) 25 WC - Nurse 2 - General Ulcer CM Notes Start: 10/26/24 13:06 Freq: Status: Active Protocol: Activity Type Activity Date Activity User E-sign Co-sign Detail Recorded Client Recorded Date Recorded By Document 10/26/24 13:18 BILL [id number] 10/26/24 13:23 JF Document 11/02/24 10:01 JF [id number] 11/02/24 10:18 JF Document 11/09/24 11:44 DS [id number] 08/20/25 11:46 DS Document 11/16/24 11:34 [id number] 11/16/24 11:35 JF 10/26/24 11/02/24 11/09/24 13:18 10:01 11:44 Wound Center Nurse 2 2-LEFT LATERAL LEG -Time 13:19 10:03 11:44 -Correct Patient Yes Yes Yes -Correct Side, Site, Position Yes Yes Yes -Correct Procedure Yes Yes Yes -Procedure Performed Yes Yes Yes -Type of Procedure Debridement Debridement Debridement -Clinical Debridement Subcutaneous Subcutaneous Subcutaneous -Tissue Removed Subcutaneous Subcutaneous Subcutaneous -Post Debridement (cm) - Length 1.1 1.2 1.0 -Post Debridement (cm) - Width 0.7 0.5 0.5 -Post Debridement (cm) - Depth 0.1 0.2 0.1 -Total Square (Post) (cm) 0.77 0.60 0.50 -Area of Debridement (cm) - Length 1.1 1.2 1.0 -Area of Debridement (cm) - Width 0.7 0.5 0.5 -Total Square (Area) (cm) 0.77 0.60 0.50 -Tunneling No No No -Undermining/Tunneling No No No -Circular Undermining No No No -Wound/Ulcer Outcome Not Healed Not Healed Not Healed -Ulcer Cleansing Rinsed/ Rinsed/ Rinsed/ Irrigated with Irrigated with Irrigated with Saline Saline Saline -Foul Odor after Cleansing No No No -Bioengineered Tissue No No No -Bleeding Controlled with Pressure Pressure Pressure -Treatment Response Procedure Procedure Procedure Tolerated Well Tolerated Well Tolerated Well -Offloading No No -Debridement - Subq, 1st 20sq cm Yes Yes Yes #1 LT LAT FOOT -Time 13:20 10:05 11:45 -Correct Patient Yes Yes Yes -Correct Side, Site, Position Yes Yes Yes -Correct Procedure Yes Yes Yes -Procedure Performed Yes Yes Yes -Type of Procedure Debridement Debridement Debridement -Clinical Debridement Subcutaneous Subcutaneous Subcutaneous -Tissue Removed Subcutaneous Subcutaneous Subcutaneous -Post Debridement (cm) - Length 2.8 3.0 3.2 -Post Debridement (cm) - Width 1.2 1.0 1.3 -Post Debridement (cm) - Depth 0.3 0.2 0.2 -Total Square (Post) (cm) 3.36 3.00 4.16 -Area of Debridement (cm) - Length 2.8 3.0 3.2 -Area of Debridement (cm) - Width 1.2 1.0 1.3 -Total Square (Area) (cm) 3.36 3.00 4.16 -Tunneling No No No -Undermining/Tunneling No No No -Circular Undermining No No No -Wound/Ulcer Outcome Not Healed Not Healed Not Healed -Ulcer Cleansing Rinsed/ Rinsed/ Rinsed/ Irrigated with Irrigated with Irrigated with Saline Saline Saline -Foul Odor after Cleansing No No No -Bioengineered Tissue Yes Yes No -Type of Bioengineered Tissue Epicord Epicord Epicord -Expiration Date 01/21/29 05/21/29 06/21/29 -Product Lot Number [id number] -Percent Used 100 100 100 -Lot number of Saline Used [id number] -Bleeding Controlled with Pressure Pressure Pressure -Treatment Response Procedure Procedure Procedure Tolerated Well Tolerated Well Tolerated Well -Offloading No No -Debridement - Subq, 1st 20sq cm No No No -Apply Skin Sub - 1st 25 sq cm - Feet 1 1 1 -Epicord Application 1-4 (per sq cm) 6 6 6 Pain Scale: 0-10 Numeric Is Patient Pain Free? Yes Yes Yes 11/16/24 11:34 Wound Center Nurse 2 2-LEFT LATERAL LEG -Time -Correct Patient Yes -Correct Side, Site, Position No -Correct Procedure No -Procedure Performed No -Type of Procedure -Clinical Debridement -Tissue Removed -Post Debridement (cm) - Length -Post Debridement (cm) - Width -Post Debridement (cm) - Depth -Total Square (Post) (cm) -Area of Debridement (cm) - Length -Area of Debridement (cm) - Width -Total Square (Area) (cm) -Tunneling -Undermining/Tunneling -Circular Undermining -Wound/Ulcer Outcome Not Healed -Ulcer Cleansing -Foul Odor after Cleansing -Bioengineered Tissue -Bleeding Controlled with -Treatment Response -Offloading -Debridement - Subq, 1st 20sq cm #1 LT LAT FOOT -Time 11:35 -Correct Patient Yes -Correct Side, Site, Position Yes -Correct Procedure Yes -Procedure Performed Yes -Type of Procedure Debridement -Clinical Debridement Subcutaneous -Tissue Removed Subcutaneous -Post Debridement (cm) - Length 3.2 -Post Debridement (cm) - Width 1.6 -Post Debridement (cm) - Depth 0.2 -Total Square (Post) (cm) 5.12 -Area of Debridement (cm) - Length 3.2 -Area of Debridement (cm) - Width 1.6 -Total Square (Area) (cm) 5.12 -Tunneling No -Undermining/Tunneling No -Circular Undermining No -Wound/Ulcer Outcome Not Healed -Ulcer Cleansing Rinsed/ Irrigated with Saline -Foul Odor after Cleansing No -Bioengineered Tissue No -Type of Bioengineered Tissue -Expiration Date -Product Lot Number -Percent Used -Lot number of Saline Used -Bleeding Controlled with Pressure -Treatment Response Procedure Tolerated Well -Offloading No -Debridement - Subq, 1st 20sq cm Yes -Apply Skin Sub - 1st 25 sq cm - Feet -Epicord Application 1-4 (per sq cm) Pain Scale: 0-10 Numeric Is Patient Pain Free? Yes WC - Nurse 3 - General Ulcer D/C NN Start: 10/26/24 13:06 Freq: Status: Active Protocol: Activity Type Activity Date Activity User E-sign Co-sign Detail Recorded Client Recorded Date Recorded By Document 10/26/24 13:32 DL [id number] 10/26/24 13:33 DL Document 11/02/24 10:30 DL [id number] 11/02/24 10:31 DL Document 11/09/24 11:58 [id number] 11/09/24 11:59 GM Document 11/16/24 11:47 [id number] 11/16/24 11:48 10/26/24 11/02/24 11/09/24 13:32 10:30 11:58 Wound Care Center Nurse 3 2-LEFT LATERAL LEG -Ulcer Cleansing Not Cleansed Not Cleansed Not Cleansed -Foul Odor after Cleansing No -Negative Pressure Wound Therapy N/A -Primary Dressing Applied -Other Dressing Epifix Epifix -Primary Dressing Covered/Secured with Dry Gauze & Dry Gauze & Dry Gauze,Dry Roll Gauze, Roll Gauze, Gauze & Roll Secured with Secured with Gauze,Secured Tape Tape with Tape -Optilok 5x5 1/2 #1 LT LAT FOOT -Ulcer Cleansing Not Cleansed Not Cleansed -Foul Odor after Cleansing No No -Negative Pressure Wound Therapy N/A -Primary Dressing Applied -Other Dressing Epifix epifix -Primary Dressing Covered/Secured with Dry Gauze & Dry Gauze & Dry Gauze Roll Gauze, Roll Gauze, Secured with Secured with Tape Tape -Other Covering ABD -Silicone Border Foam 4x4 LLE -Lotion applied to leg before compression wrap -Compression Wrap -Tubular Bandage Double Layer Double Layer Double Layer -Size of Tubigrip Used Size E Size E Size E -Size E ($) 2 2 2 Treatment Response Procedure Procedure Tolerated Well Tolerated Well Pain Scale: 0-10 Numeric Is Patient Pain Free? Yes Yes Yes WC - Visit Discharge Discharge Condition Stable Stable Stable Ambulatory Status Ambulatory,Cane Ambulatory Ambulatory Transportation [employer] 11/16/24 11:47 Wound Care Center Nurse 3 2-LEFT LATERAL LEG -Ulcer Cleansing Not Cleansed -Foul Odor after Cleansing No -Negative Pressure Wound Therapy -Primary Dressing Applied Optilok 5x5 1/2 -Other Dressing -Primary Dressing Covered/Secured with Dry Gauze,Dry Gauze & Roll Gauze,Secured with Tape -Optilok 5x5 1/2 1 #1 LT LAT FOOT -Ulcer Cleansing Not Cleansed -Foul Odor after Cleansing No -Negative Pressure Wound Therapy -Primary Dressing Applied Silicone Border Foam 4x4 -Other Dressing -Primary Dressing Covered/Secured with -Other Covering -Silicone Border Foam 4x4 1 LLE -Lotion applied to leg before No compression wrap -Compression Wrap Jose Wrap -Tubular Bandage -Size of Tubigrip Used -Size E ($) Treatment Response Pain Scale: 0-10 Numeric Is Patient Pain Free? Yes WC - Visit Discharge Discharge Condition Stable Ambulatory Status Ambulatory Transportation Private Auto Assessment/Plan Assessment/Plan (1) Non-pressure chronic ulcer of other part of left foot with fat layer exposed: CODE(S): L97.522 - Non-pressure chronic ulcer of other part of left foot with fat layer exposed PLAN: Patient was examined and evaluated. All findings were discussed with the patient. All questions were answered to the patient satisfaction. Excisional debridement down to including subcutaneous tissue of the left foot lateral full-thickness wound with a number 3 mm dermal curette done without incident. Predebridement measurement was 3.1 x 1.4 x 0.1 cm. Postdebridement measurement is 3.2 x 1.6 x 0.2 cm. The area was flushed with saline and a culture was taken to be sent off for microbiology culture and sensitivity. Due to the increased erythema and drainage the patient will be placed on Augmentin 875 twice daily for 2 weeks. Will adjust antibiotics when culture and sensitivity returns as needed. The area was dressed with Betadine soaked gauze, dry sterile dressing and compression wrap. Patient was educated to watch his weightbearing and to continue to rest and elevate is much as possible which he is understanding of. I told the patient that once we show better improvement he needs to be placed in a 3M multilayer compression bandage versus Unna boot which he was understanding of. Patient will follow-up with Dr. Ennis in 1 week (2) Non-pressure chronic ulcer of left ankle with fat layer exposed: CODE(S): L97.322 - Non-pressure chronic ulcer of left ankle with fat layer exposed (3) Other specified peripheral vascular diseases: CODE(S): I73.89 - Other specified peripheral vascular diseases
--- NOTE | 2024-11-16 13:50 | WC ---
PHOTO-LEFT LATERAL LEG 11/16/24
--- NOTE | 2024-11-16 13:53 | WC ---
PHOTO-LEFT LATERAL LEG 11/16/24
--- NOTE | 2024-11-16 14:02 | WC ---
PHOTO-LEFT LATERAL FOOT 11/16/24
== END 2024-11-20 23:59 | disposition home or self-care (01) ==
LOC: WC 10:45
PROVIDERS: PCP Family Medicine; Referring Provider Family Medicine; Visit Provider Podiatrist Foot & Ankle Surgery
DX: L97.522 Non-pressure chronic ulcer of other part of left foot with fat layer exposed (principal); L97.322 Non-pressure chronic ulcer of left ankle with fat layer exposed; I87.2 Venous insufficiency (chronic) (peripheral); I73.89 Other specified peripheral vascular diseases
CPT/HCPCS: 11042; 15275; 87070; 87075; 87077; 87186; 87205; Q4187

== ENCOUNTER 2024-12-14 10:30 | Outpatient (RCR) | payer MEDICARE, SELFPAY ==
[2024-11-23 10:46] VITALS: BP 147/81; PULSE 73; RESP 18; TEMP 36.1
--- NOTE | 2024-11-23 12:43 | PN.PCM_ITS ---
History of Present Illness Date of Service: 11/23/24 Chief Complaint: Full-thickness wound, left foot and ankle. History of Wound: Full-thickness wound to left foot and ankle secondary to venous insufficiency. Patient has extensive history of vascular intervention from Dr. Rock Progress of Wound: Full-thickness wound to left lower extremity stable being treated with oral antibiotics. Subjective Subjective Patient is a 74-year-old male presenting to wound care center today follow-up evaluation of full-thickness wound to the left lateral leg and left lateral foot. Patient has been compliant with daily dressing changes and notices great improvement with pain and drainage to left lower extremity. He has been taking antibiotics as prescribed. He describes them as very large pills that are difficult to swallow but understands the importance of taking the oral antibiotic. He has been grateful for his care as he is noticing improvement. He denies any trauma. Denies constitutional symptoms. No other pedal complaints at this time. Objective Data Objective Data Vital Signs: Vital Signs Temp Pulse Resp BP O2 Del Method 97.0 F L 73 18 147/81 H Room Air 11/23/24 10:46 11/23/24 10:46 11/23/24 10:46 11/23/24 10:46 11/23/24 10:46 Oxygen Delivery Method Room Air Lab / Micro Data Micro: Microbiology 10/12/24 09:52 Ulcer, Decubitus - Left Foot Gram Stain - Final 10/12/24 09:52 Ulcer, Decubitus - Left Foot Wound Culture - Final No growth aerobically. 10/12/24 09:52 Ulcer, Decubitus - Left Foot Anaerobic Culture - Final No anaerobic bacteria isolated. Physical Exam Narrative Vascular: DP and PT pulses are biphasic on Doppler. CFT is brisk. Skin temperature gradient is warm to warm from proximal ankles to distal digit. No focal increase is noted. Diffuse hemosiderin deposits are appreciated to the left lower extremity. Erythema and drainage has improved to the left lower extremity. Neurological: Light touch is intact. Patient responds to painful stimuli. Dermatological: Full-thickness wound to the medial ankle left lower extremity measuring 0.5 x 0.2 x 0.1 cm. Wound base is granular. Evidence of full-thickness wound to the left lateral leg measuring 0.9 x 0.5 x 0.2 cm. Wound base is granular. Evidence of full-thickness wound to the left lateral foot measuring 3.0 x 1.2 x 0.2 cm. Wound base is fibrogranular nature. Erythema and drainage have improved. Excisional debridement down to and including subcutaneous tissue of the left medial ankle full-thickness wound done with a number 3 mm dermal curette done without incident. Predebridement measurement was sanguinous crust. Posterior measurement is 0.5 x 2.0 x 0.1 cm. Excisional debridement down to including subcutaneous tissue of left lateral leg full-thickness wound done with a number 3 mm dermal curette down without incident. Predebridement measurement was 0.5 x 0.3 x 0.1 cm. Postdebridement measurement is 0.9 x 0.5 x 0.2 cm. Excisional debridement down to and including subcutaneous tissue of the left lateral foot full-thickness wound done with a number 3 mm dermal curette done without incident. Predebridement measurement was 2.8 x 1.0 x 0.2 cm. Postdebridement measurement 0.3 x 1.2 x 0.2 cm. Muscle skeletal: Decreased range of motion to the left ankle secondary to osteoarthritis. No pain on palpation to both full-thickness wounds to the left lower extremity. No pain with calf pressure. Debridement Note Debridement Note Debridement Free Text: Excisional debridement down to and including subcutaneous tissue of the left medial ankle full-thickness wound done with a number 3 mm dermal curette done without incident. Predebridement measurement was sanguinous crust. Posterior measurement is 0.5 x 2.0 x 0.1 cm. Excisional debridement down to including subcutaneous tissue of left lateral leg full-thickness wound done with a number 3 mm dermal curette down without incident. Predebridement measurement was 0.5 x 0.3 x 0.1 cm. Postdebridement measurement is 0.9 x 0.5 x 0.2 cm. Excisional debridement down to and including subcutaneous tissue of the left lateral foot full-thickness wound done with a number 3 mm dermal curette done without incident. Predebridement measurement was 2.8 x 1.0 x 0.2 cm. Postdebridement measurement 0.3 x 1.2 x 0.2 cm. Post-Debridement Measurements and Additional Note: Post-Debridement Measurements/Treatment LETY - Nurse 1 - General Ulcer Assessment Start: 11/23/24 10:46 Freq: Status: Active Protocol: LOWFABIEN Activity Type Activity Date Activity User E-sign Co-sign Detail Recorded Client Recorded Date Recorded By Document 11/23/24 10:46 KW [id number] 11/23/24 10:56 11/23/24 10:46 - Today's Visit Information Type of service Follow-up Visit (Physician/[employer] ) Arrival Mode Ambulatory Patient Identification Verified (Name & Yes ) Vital Signs Temperature (97.8 F-99.1 F) 97.0 F L Temperature Source Temporal Pulse Rate (60-100) 73 Pulse Location Monitor Respiratory Rate (12-18) 18 Respiratory rate source Observation Oxygen Delivery Method Room Air Blood Pressure (90/60-120/80) 147/81 H Blood Pressure Mean (mm Hg) 103 Source Monitor Position Semi-Fowlers Blood Pressure Location Left Arm History Since Last Visit- (Skip if this is Patient's initial visit) Have you changed medications since your No last visit? Any new allergies or adverse reactions No Had a fall/change in ADL's that may No increase risk of falls Signs or symptoms of abuse and/or No neglect since last visit Have you been in the hospital since your No last visit? Has dressing in place as prescribed Yes Has compression in place as prescribed Yes Has offloadiing in place as prescribed N/A Experienced any changes in pain level or No management Left Footwear Regular Shoe Right Footwear Regular Shoe Pain Scale: 0-10 Numeric Is Patient Pain Free? Yes - Nurse 1 - General Ulcer Measurement Start: 11/23/24 10:46 Freq: Status: Active Protocol: Activity Type Activity Date Activity User E-sign Co-sign Detail Recorded Client Recorded Date Recorded By Document 11/23/24 10:46 [email or web address] [id number] 11/23/24 10:56 11/23/24 10:46 Wound Center Nurse 1 2-LEFT LATERAL LEG -Current Size (cm) - Length 0.5 -Current Size (cm) - Width 0.5 -Current Size (cm) - Depth 0.2 -Total Square Cm 0.25 -Date of Last Picture (Recall this 11/23/24 field) -Exudate Amt None Present -Exudate Type Serosanguineous -Wound Margin Thickened -Granulation Amt Small (1-33%) -Granulation Quality [place] -Necrosis Amt Large (67-100%) -Necrotic Tissue Type Adherent Slough -Texture ([place]-wound Skin Appearance) Assessed -Moisture ([place]enda-wound Skin Appearance) Assessed -Color ([place]-wound Skin Appearance) Assessed -Temperature ([place]-wound Skin No Abnormality Appearance) (Pt Warm) -Tenderness on Palpation ([place]-wound No Skin Appearance) -Ulcer Cleansing Rinsed/ Irrigated with Saline -Foul Odor after Cleansing No -Anesthetic Used 5% Lidocaine Gel #1 LT LAT FOOT -Current Size (cm) - Length 2.7 -Current Size (cm) - Width 1.5 -Current Size (cm) - Depth 0.3 -Total Square Cm 4.05 -Date of Last Picture (Recall this 11/23/24 field) -Exudate Amt Medium -Exudate Type Serosanguineous -Wound Margin Thickened & Rolled Under -Granulation Amt Medium (34-66%) -Granulation Quality Red -Necrosis Amt Medium (34-66%) -Necrotic Tissue Type Adherent Slough -Texture ([place]enda-wound Skin Appearance) Assessed -Moisture ([place]-wound Skin Appearance) Assessed -Color ([place]enda-wound Skin Appearance) Assessed -Tenderness on Palpation ([place]-wound No Skin Appearance) -Ulcer Cleansing Rinsed/ Irrigated with Saline -Foul Odor after Cleansing No -Anesthetic Used 5% Lidocaine Gel Left Calf (cm) 39.5 Left Ankle (cm) 24.5 WC - Nurse 2 - General Ulcer CM Notes Start: 11/23/24 10:46 Freq: Status: Active Protocol: Activity Type Activity Date Activity User E-sign Co-sign Detail Recorded Client Recorded Date Recorded By Document 11/23/24 11:03 BILL [id number] 11/23/24 11:06 BILL 11/23/24 11:03 Wound Center Nurse 2 3-LEFT MEDIAL ANKLE -Time 11:06 -Correct Patient Yes -Correct Side, Site, Position Yes -Correct Procedure Yes -Procedure Performed Yes -Type of Procedure Debridement -Clinical Debridement Subcutaneous -Tissue Removed Subcutaneous -Post Debridement (cm) - Length 0.5 -Post Debridement (cm) - Width 0.2 -Post Debridement (cm) - Depth 0.2 -Total Square (Post) (cm) 0.10 -Area of Debridement (cm) - Length 0.5 -Area of Debridement (cm) - Width 0.2 -Total Square (Area) (cm) 0.10 -Tunneling No -Undermining/Tunneling No -Circular Undermining No -Wound/Ulcer Outcome Not Healed -Ulcer Cleansing Rinsed/ Irrigated with Saline -Foul Odor after Cleansing No -Bioengineered Tissue No -Bleeding Controlled with Pressure -Treatment Response Procedure Tolerated Well -Offloading No -Debridement - Subq, 1st 20sq cm Yes 2-LEFT LATERAL LEG -Time 11:03 -Correct Patient Yes -Correct Side, Site, Position Yes -Correct Procedure Yes -Procedure Performed Yes -Type of Procedure Debridement -Clinical Debridement Subcutaneous -Tissue Removed Subcutaneous -Post Debridement (cm) - Length 0.9 -Post Debridement (cm) - Width 0.5 -Post Debridement (cm) - Depth 0.2 -Total Square (Post) (cm) 0.45 -Area of Debridement (cm) - Length 0.9 -Area of Debridement (cm) - Width 0.5 -Total Square (Area) (cm) 0.45 -Tunneling No -Undermining/Tunneling No -Circular Undermining No -Wound/Ulcer Outcome Not Healed -Ulcer Cleansing Rinsed/ Irrigated with Saline -Foul Odor after Cleansing No -Bioengineered Tissue No -Bleeding Controlled with Pressure -Treatment Response Procedure Tolerated Well -Offloading No -Debridement - Subq, 1st 20sq cm No #1 LT LAT FOOT -Time 11:04 -Correct Patient Yes -Correct Side, Site, Position Yes -Correct Procedure Yes -Procedure Performed Yes -Type of Procedure Debridement -Clinical Debridement Subcutaneous -Tissue Removed Subcutaneous -Post Debridement (cm) - Length 3.0 -Post Debridement (cm) - Width 1.2 -Post Debridement (cm) - Depth 0.2 -Total Square (Post) (cm) 3.60 -Area of Debridement (cm) - Length 3.0 -Area of Debridement (cm) - Width 1.2 -Total Square (Area) (cm) 3.60 -Tunneling No -Undermining/Tunneling No -Circular Undermining No -Wound/Ulcer Outcome Not Healed -Ulcer Cleansing Rinsed/ Irrigated with Saline -Foul Odor after Cleansing No -Bioengineered Tissue No -Bleeding Controlled with Pressure -Treatment Response Procedure Tolerated Well -Offloading No -Debridement - Subq, 1st 20sq cm No Pain Scale: 0-10 Numeric Is Patient Pain Free? Yes Assessment/Plan Assessment/Plan (1) Non-pressure chronic ulcer of other part of left foot with fat layer exposed: CODE(S): L97.522 - Non-pressure chronic ulcer of other part of left foot with fat layer exposed PLAN: Patient was examined and evaluated. All findings were discussed with the patient. All questions were answered to the patient satisfaction. Excisional debridement down to and including subcutaneous tissue of the left medial ankle full-thickness wound done with a number 3 mm dermal curette done without incident. Predebridement measurement was sanguinous crust. Posterior measurement is 0.5 x 2.0 x 0.1 cm. Excisional debridement down to including subcutaneous tissue of left lateral leg full-thickness wound done with a number 3 mm dermal curette down without incident. Predebridement measurement was 0.5 x 0.3 x 0.1 cm. Postdebridement measurement is 0.9 x 0.5 x 0.2 cm. Excisional debridement down to and including subcutaneous tissue of the left lateral foot full-thickness wound done with a number 3 mm dermal curette done without incident. Predebridement measurement was 2.8 x 1.0 x 0.2 cm. Postdebridement measurement 0.3 x 1.2 x 0.2 cm. The left lower extremities are cleaned and patted dry. Betadine paint followed by dry sterile dressing and double layer Tubigrip was donned to left lower extremity. Patient will continue daily dressing changes. I reviewed the patient's charts from the vascular surgeon and shows evidence of severe venous insufficiency with needing compression wraps strong as 30 to 40 mmHg. Patient would like to continue the double Tubigrip even though I recommended a multilayer compression bandage. He states that he would like 1 more week to continue daily dressing changes before donning the 3M wrap. Review of the patient's microbiology shows evidence of Pseudomonas aeruginosa growth. The patient will stop the Augmentin 875 and begin levofloxacin 500 mg daily for 2 weeks. Patient will follow-up with Dr. Ennis in 1 week (2) Non-pressure chronic ulcer of left ankle with fat layer exposed: CODE(S): L97.322 - Non-pressure chronic ulcer of left ankle with fat layer exposed (3) Other specified peripheral vascular diseases: CODE(S): I73.89 - Other specified peripheral vascular diseases
--- NOTE | 2024-11-24 09:53 | WC ---
PHOTO- LLE FOOT AND ANKLE 11/23/24
[2024-12-07 11:00] VITALS: BP 151/77; RESP 20; TEMP 36.2
--- NOTE | 2024-12-07 14:28 | PCM.WC.PN ---
History of Present Illness Date of Service: 12/07/24 Chief Complaint: Full-thickness wound, left foot and ankle. History of Wound: Full-thickness wound to left foot and ankle secondary to venous insufficiency. Patient has extensive history of vascular intervention from Dr. Rock Progress of Wound: Full-thickness wound to left lower extremity stable being treated with oral antibiotics. Subjective Subjective Patient is a 74-year-old male presenting to clinic today follow-up evaluation of multiple full-thickness wounds to the left lower extremity. Patient has been compliant with dressing changes and is here today for evaluation and graft application since we were on a standstill due to an infected wound to the left foot which has now cleared up with oral antibiotics. He has no pain to left lower extremity. He is also willing to go into a multilayer compression bandage to help with swelling. He denies trauma. Denies constitutional symptoms. No other pedal complaints at this time. Objective Data Objective Data Vital Signs: Vital Signs Temp Pulse Resp BP O2 Del Method 97.2 F L 73 20 H 151/77 H Room Air 12/07/24 11:00 11/23/24 10:46 12/07/24 11:00 12/07/24 11:00 12/07/24 11:00 Oxygen Delivery Method Room Air Lab / Micro Data Micro: Microbiology 10/12/24 09:52 Ulcer, Decubitus - Left Foot Gram Stain - Final 10/12/24 09:52 Ulcer, Decubitus - Left Foot Wound Culture - Final No growth aerobically. 10/12/24 09:52 Ulcer, Decubitus - Left Foot Anaerobic Culture - Final No anaerobic bacteria isolated. Physical Exam Narrative Vascular: DP and PT pulses are biphasic on Doppler. CFT is brisk. Skin temperature gradient is warm to warm from proximal ankles to distal digit. No focal increase is noted. Diffuse hemosiderin deposits are appreciated to the left lower extremity. Erythema and drainage has improved to the left lower extremity. Neurological: Light touch is intact. Patient responds to painful stimuli. Dermatological: Full-thickness wound to the medial ankle left lower extremity is now healed. Evidence of full-thickness wound to the left lateral leg measuring 1.0 x 0.4 x 0.2 cm. Wound base is granular. Evidence of full-thickness wound to the left lateral foot measuring 2.7 x 1.2 x 0.2 cm. Wound base is fibrogranular nature. No erythema. Excisional debridement down to including subcutaneous tissue of left lateral leg full-thickness wound done with a number 3 mm dermal curette down without incident. Predebridement measurement was sanguinous crust. Postdebridement measurement is 1.0 x 0.4 x 0.2 cm. Excisional debridement down to and including subcutaneous tissue of the left lateral foot full-thickness wound done with a number 3 mm dermal curette done without incident. Predebridement measurement was 2.5 x 1.1 x 0.1 cm. Postdebridement measurement 2.7 x 1.2 x 0.2 cm. Epi cord 2.0 x 3.0 cm was applied to the left full-thickness ulceration with 100% use. Fourth application. The graft site was free and clear of any infection. The wound/skin graft substitute was dressed with nonadherent bandage secured in place with Steri-Strips followed by bolster dressing as well as a Unna boot. Muscle skeletal: Decreased range of motion to the left ankle secondary to osteoarthritis. No pain on palpation to both full-thickness wounds to the left lower extremity. No pain with calf pressure. Debridement Note Debridement Note Debridement Free Text: Excisional debridement down to including subcutaneous tissue of left lateral leg full-thickness wound done with a number 3 mm dermal curette down without incident. Predebridement measurement was sanguinous crust. Postdebridement measurement is 1.0 x 0.4 x 0.2 cm. Excisional debridement down to and including subcutaneous tissue of the left lateral foot full-thickness wound done with a number 3 mm dermal curette done without incident. Predebridement measurement was 2.5 x 1.1 x 0.1 cm. Postdebridement measurement 2.7 x 1.2 x 0.2 cm. Epi cord 2.0 x 3.0 cm was applied to the left full-thickness ulceration with 100% use. Fourth application. The graft site was free and clear of any infection. The wound/skin graft substitute was dressed with nonadherent bandage secured in place with Steri-Strips followed by bolster dressing as well as a Unna boot. Post-Debridement Measurements and Additional Note: Post-Debridement Measurements/Treatment LETY - Nurse 1 - General Ulcer Assessment Start: 11/23/24 10:46 Freq: Status: Active Protocol: WC.LOWEXT Activity Type Activity Date Activity User E-sign Co-sign Detail Recorded Client Recorded Date Recorded By Document 11/23/24 10:46 KW [id number] 11/23/24 10:56 KW Document 12/07/24 11:00 DS [id number] 12/07/24 11:13 DS 11/23/24 12/07/24 10:46 11:00 - Today's Visit Information Type of service Follow-up Visit Follow-up Visit (Physician/[employer] (Physician/[employer]IST ) ) Arrival Mode Ambulatory Ambulatory Patient Identification Verified (Name & Yes Yes ) Safety Precautions Fall Prevention Vital Signs Temperature (97.8 F-99.1 F) 97.0 F L 97.2 F L Temperature Source Temporal Temporal Pulse Rate (60-100) 73 Pulse Location Monitor Monitor Respiratory Rate (12-18) 18 20 H Respiratory rate source Observation Observation Oxygen Delivery Method Room Air Room Air Blood Pressure (90/60-120/80) 147/81 H 151/77 H Blood Pressure Mean (mm Hg) 103 101 Source Monitor Monitor Position Semi-Fowlers Sitting Blood Pressure Location Left Arm Right Arm History Since Last Visit- (Skip if this is Patient's initial visit) Have you changed medications since your No No last visit? Any new allergies or adverse reactions No No Had a fall/change in ADL's that may No No increase risk of falls Signs or symptoms of abuse and/or No No neglect since last visit Have you been in the hospital since your No No last visit? Has dressing in place as prescribed Yes Yes Has compression in place as prescribed Yes Yes Has offloadiing in place as prescribed N/A N/A Experienced any changes in pain level or No No management Left Footwear Regular Shoe Regular Shoe Right Footwear Regular Shoe Regular Shoe Pain Scale: 0-10 Numeric Is Patient Pain Free? Yes Yes - Nurse 1 - General Ulcer Measurement Start: 11/23/24 10:46 Freq: Status: Active Protocol: Activity Type Activity Date Activity User E-sign Co-sign Detail Recorded Client Recorded Date Recorded By Document 11/23/24 10:46 KW [id number] 11/23/24 10:56 KW Document 12/07/24 11:00 DS [id number] 12/07/24 11:13 DS 11/23/24 12/07/24 10:46 11:00 Wound Center Nurse 1 2-LEFT LATERAL LEG -Current Size (cm) - Length 0.5 1.0 -Current Size (cm) - Width 0.5 0.4 -Current Size (cm) - Depth 0.2 0.1 -Total Square Cm 0.25 0.40 -Date of Last Picture (Recall this 11/23/24 12/07/24 field) -Photo Taken No -Tunneling No -Undermining/Tunneling No -Circular Undermining No -Exudate Amt None Present Small -Exudate Type Serosanguineous Serosanguineous -Wound Margin Thickened Distinct, Outline Attached -Granulation Amt Small (1-33%) -Granulation Quality [place] -Necrosis Amt Large (67-100%) Large (67-100%) -Necrotic Tissue Type Adherent Slough Adherent Slough -Texture (Glenda-wound Skin Appearance) Assessed Assessed -Moisture (Glenda-wound Skin Appearance) Assessed Assessed -Color (Glenda-wound Skin Appearance) Assessed Assessed -Temperature (Glenda-wound Skin No Abnormality No Abnormality Appearance) (Pt Warm) (Pt Warm) -Tenderness on Palpation (Glenda-wound No No Skin Appearance) -Ulcer Cleansing Rinsed/ Soap and Water Irrigated with Saline -Foul Odor after Cleansing No No -Anesthetic Used 5% Lidocaine 5% Lidocaine Gel Gel #1 LT LAT FOOT -Current Size (cm) - Length 2.7 1.5 -Current Size (cm) - Width 1.5 3.2 -Current Size (cm) - Depth 0.3 0.3 -Total Square Cm 4.05 4.80 -Date of Last Picture (Recall this 11/23/24 12/07/24 field) -Photo Taken Yes -Tunneling No -Undermining/Tunneling No -Circular Undermining No -Exudate Amt Medium -Exudate Type Serosanguineous -Wound Margin Thickened & Distinct, Rolled Under Outline Attached -Granulation Amt Medium (34-66%) -Granulation Quality Red -Necrosis Amt Medium (34-66%) Large (67-100%) -Necrotic Tissue Type Adherent Slough Adherent Slough -Texture (Glenda-wound Skin Appearance) Assessed Assessed -Moisture (Glenda-wound Skin Appearance) Assessed Assessed -Color (Glenda-wound Skin Appearance) Assessed Assessed -Temperature (Glenda-wound Skin No Abnormality Appearance) (Pt Warm) -Tenderness on Palpation (Glenda-wound No No Skin Appearance) -Ulcer Cleansing Rinsed/ Soap and Water Irrigated with Saline -Foul Odor after Cleansing No No -Anesthetic Used 5% Lidocaine 5% Lidocaine Gel Gel Left Calf (cm) 39.5 Left Ankle (cm) 24.5 WC - Nurse 2 - General Ulcer CM Notes Start: 11/23/24 10:46 Freq: Status: Active Protocol: Activity Type Activity Date Activity User E-sign Co-sign Detail Recorded Client Recorded Date Recorded By Document 11/23/24 11:03 [id number] 11/23/24 11:06 Document 12/07/24 11:23 [id number] 12/07/24 11:27 11/23/24 12/07/24 11:03 11:23 Wound Center Nurse 2 3-LEFT MEDIAL ANKLE -Time 11:06 -Correct Patient Yes Yes -Correct Side, Site, Position Yes No -Correct Procedure Yes No -Procedure Performed Yes No -Type of Procedure Debridement -Clinical Debridement Subcutaneous -Tissue Removed Subcutaneous -Post Debridement (cm) - Length 0.5 0 -Post Debridement (cm) - Width 0.2 0 -Post Debridement (cm) - Depth 0.2 0 -Total Square (Post) (cm) 0.10 0 -Area of Debridement (cm) - Length 0.5 0 -Area of Debridement (cm) - Width 0.2 0 -Total Square (Area) (cm) 0.10 0 -Tunneling No -Undermining/Tunneling No -Circular Undermining No -Wound/Ulcer Outcome Not Healed Healed- Epithelialized -Ulcer Cleansing Rinsed/ Irrigated with Saline -Foul Odor after Cleansing No -Bioengineered Tissue No -Bleeding Controlled with Pressure -Treatment Response Procedure Tolerated Well -Offloading No -Debridement - Subq, 1st 20sq cm Yes 2-LEFT LATERAL LEG -Time 11:03 11:24 -Correct Patient Yes Yes -Correct Side, Site, Position Yes Yes -Correct Procedure Yes Yes -Procedure Performed Yes Yes -Type of Procedure Debridement Debridement -Clinical Debridement Subcutaneous Subcutaneous -Tissue Removed Subcutaneous Subcutaneous -Post Debridement (cm) - Length 0.9 1.0 -Post Debridement (cm) - Width 0.5 0.4 -Post Debridement (cm) - Depth 0.2 0.2 -Total Square (Post) (cm) 0.45 0.40 -Area of Debridement (cm) - Length 0.9 1.0 -Area of Debridement (cm) - Width 0.5 0.4 -Total Square (Area) (cm) 0.45 0.40 -Tunneling No No -Undermining/Tunneling No No -Circular Undermining No No -Wound/Ulcer Outcome Not Healed Not Healed -Ulcer Cleansing Rinsed/ Rinsed/ Irrigated with Irrigated with Saline Saline -Foul Odor after Cleansing No No -Bioengineered Tissue No No -Bleeding Controlled with Pressure Pressure -Treatment Response Procedure Procedure Tolerated Well Tolerated Well -Offloading No No -Debridement - Subq, 1st 20sq cm No Yes #1 LT LAT FOOT -Time 11:04 11:24 -Correct Patient Yes Yes -Correct Side, Site, Position Yes Yes -Correct Procedure Yes Yes -Procedure Performed Yes Yes -Type of Procedure Debridement Debridement -Clinical Debridement Subcutaneous Subcutaneous -Tissue Removed Subcutaneous Subcutaneous -Post Debridement (cm) - Length 3.0 2.7 -Post Debridement (cm) - Width 1.2 1.2 -Post Debridement (cm) - Depth 0.2 0.2 -Total Square (Post) (cm) 3.60 3.24 -Area of Debridement (cm) - Length 3.0 2.7 -Area of Debridement (cm) - Width 1.2 1.2 -Total Square (Area) (cm) 3.60 3.24 -Tunneling No No -Undermining/Tunneling No No -Circular Undermining No No -Wound/Ulcer Outcome Not Healed Not Healed -Ulcer Cleansing Rinsed/ Rinsed/ Irrigated with Irrigated with Saline Saline -Foul Odor after Cleansing No No -Bioengineered Tissue No Yes -Type of Bioengineered Tissue Epicord -Expiration Date 05/21/29 -Product Lot Number [id number] -Percent Used 100 -Lot number of Saline Used [id number] -Bleeding Controlled with Pressure Pressure -Treatment Response Procedure Procedure Tolerated Well Tolerated Well -Offloading No No -Debridement - Subq, 1st 20sq cm No No -Apply Skin Sub - 1st 25 sq cm - Feet 1 -Epicord Application 1-4 (per sq cm) 6 Pain Scale: 0-10 Numeric Is Patient Pain Free? Yes Yes WC - Nurse 3 - General Ulcer D/C NN Start: 11/23/24 10:46 Freq: Status: Active Protocol: Activity Type Activity Date Activity User E-sign Co-sign Detail Recorded Client Recorded Date Recorded By Document 12/07/24 11:48 CP [id number] 12/07/24 11:49 CP 12/07/24 11:48 Wound Care Center Nurse 3 2-LEFT LATERAL LEG -Primary Dressing Applied Optilok 5x5 1/2 -Optilok 5x5 1/2 1 #1 LT LAT FOOT -Primary Dressing Applied Optilok 5x5 1/2 -Optilok 5x5 1/2 1 LLE -Multi-Layered Wrap Application Unna Boot - Left -Unna- Left (Qty applied) 1 Pain Scale: 0-10 Numeric Is Patient Pain Free? Yes WC - Visit Discharge Discharge Condition Stable Ambulatory Status Ambulatory Transportation Private Auto Clinical Summary of Care Provided Yes Assessment/Plan Assessment/Plan (1) Non-pressure chronic ulcer of left ankle with fat layer exposed: CODE(S): L97.322 - Non-pressure chronic ulcer of left ankle with fat layer exposed PLAN: Patient was examined and evaluated. All findings were discussed with the patient. All questions were answered to the patient satisfaction. Excisional debridement down to including subcutaneous tissue of left lateral leg full-thickness wound done with a number 3 mm dermal curette down without incident. Predebridement measurement was sanguinous crust. Postdebridement measurement is 1.0 x 0.4 x 0.2 cm. Excisional debridement down to and including subcutaneous tissue of the left lateral foot full-thickness wound done with a number 3 mm dermal curette done without incident. Predebridement measurement was 2.5 x 1.1 x 0.1 cm. Postdebridement measurement 2.7 x 1.2 x 0.2 cm. Epi cord 2.0 x 3.0 cm was applied to the left full-thickness ulceration with 100% use. Fourth application. The graft site was free and clear of any infection. The wound/skin graft substitute was dressed with nonadherent bandage secured in place with Steri-Strips followed by bolster dressing as well as a Unna boot. Patient will leave the wrap clean dry and intact and follow-up on Thursday for nursing visit for dressing change. Patient will follow-up with Dr. Ennis in the wound care center in 1 week. (2) Non-pressure chronic ulcer of other part of left foot with fat layer exposed: CODE(S): L97.522 - Non-pressure chronic ulcer of other part of left foot with fat layer exposed (3) Other specified peripheral vascular diseases: CODE(S): I73.89 - Other specified peripheral vascular diseases
--- NOTE | 2024-12-08 08:14 | WC ---
PHOTO - LEFT MED ANKLE/LE 12/07/24
--- NOTE | 2024-12-08 08:15 | WC ---
PHOTO - LEFT LAT LE FOOT 12/07/24
[2024-12-09 10:02] VITALS: BP 164/69; PULSE 74; RESP 18; TEMP 36.1
[2024-12-14 10:33] VITALS: BP 154/84; PULSE 74; RESP 15; TEMP 36.4
--- NOTE | 2024-12-14 12:47 | PN.PCM_ITS ---
History of Present Illness Date of Service: 12/14/24 Chief Complaint: Full-thickness wound, left foot and ankle. History of Wound: Full-thickness wound to left foot and ankle secondary to venous insufficiency. Patient has extensive history of vascular intervention from Dr. Rock Progress of Wound: Full-thickness wound to left lower extremity stable being treated with oral antibiotics. Subjective Subjective Patient is a 74-year-old male presenting to clinic today follow-up evaluation of full-thickness wound to the left foot and leg. Patient has been compliant and left the skin graft substitute with multilayer compression bandage clean dry and intact. Patient has reduced his smoking a little bit but knows he needs to do more. He does not know of any strikethrough since the bandage was left on clean dry and intact. He denies constitutional symptoms. He denies trauma. No other pedal complaints at this time. Objective Data Objective Data Vital Signs: Vital Signs Temp Pulse Resp BP O2 Del Method 97.6 F L 74 15 154/84 H Room Air 12/14/24 10:33 12/14/24 10:33 12/14/24 10:33 12/14/24 10:33 12/09/24 10:02 Oxygen Delivery Method Room Air Lab / Micro Data Micro: Microbiology 10/12/24 09:52 Ulcer, Decubitus - Left Foot Gram Stain - Final 10/12/24 09:52 Ulcer, Decubitus - Left Foot Wound Culture - Final No growth aerobically. 10/12/24 09:52 Ulcer, Decubitus - Left Foot Anaerobic Culture - Final No anaerobic bacteria isolated. Physical Exam Narrative Vascular: DP and PT pulses are biphasic on Doppler. CFT is brisk. Skin temperature gradient is warm to warm from proximal ankles to distal digit. No focal increase is noted. Diffuse hemosiderin deposits are appreciated to the left lower extremity. Erythema and drainage has improved to the left lower extremity. Neurological: Light touch is intact. Patient responds to painful stimuli. Dermatological: Evidence of full-thickness wound to the left lateral leg measuring 0.8 x 0.4 x 0.1 cm. Wound base is granular. Evidence of full-thickness wound to the left lateral foot measuring 2.2 x 1.0 x 0.2 cm. Wound base is fibrogranular nature. No erythema. Excisional debridement down to including subcutaneous tissue of left lateral leg full-thickness wound done with a number 3 mm dermal curette down without incident. Predebridement measurement was sanguinous crust. Postdebridement measurement is 0.8 x 0.4 x 0.1 cm. Excisional debridement down to and including subcutaneous tissue of the left lateral foot full-thickness wound done with a number 3 mm dermal curette done without incident. Predebridement measurement was 2.0 x 0.8 x 0.1 cm. Postdebridement measurement 2.2 x 1.0 x 0.2 cm. EpiFix 2.0 x 2.0 cm was applied to the left full-thickness ulceration with 100% use. Fifth application. The graft site was free and clear of any infection. The wound/skin graft substitute was dressed with nonadherent bandage secured in place with Steri-Strips followed by bolster dressing as well as a double layer Tubigrip. Patient will change into his personal compression stocking to left lower extremity. Muscle skeletal: Decreased range of motion to the left ankle secondary to osteoarthritis. No pain on palpation to both full-thickness wounds to the left lower extremity. No pain with calf pressure. Debridement Note Debridement Note Debridement Free Text: Excisional debridement down to including subcutaneous tissue of left lateral leg full-thickness wound done with a number 3 mm dermal curette down without incident. Predebridement measurement was sanguinous crust. Postdebridement measurement is 0.8 x 0.4 x 0.1 cm. Excisional debridement down to and including subcutaneous tissue of the left lateral foot full-thickness wound done with a number 3 mm dermal curette done without incident. Predebridement measurement was 2.0 x 0.8 x 0.1 cm. Postdebridement measurement 2.2 x 1.0 x 0.2 cm. EpiFix 2.0 x 2.0 cm was applied to the left full-thickness ulceration with 100% use. Fifth application. The graft site was free and clear of any infection. The wound/skin graft substitute was dressed with nonadherent bandage secured in place with Steri-Strips followed by bolster dressing as well as a double layer Tubigrip. Patient will change into his personal compression stocking to left lower extremity. Post-Debridement Measurements and Additional Note: Post-Debridement Measurements/Treatment - Nurse 1 - General Ulcer Assessment Start: 11/23/24 10:46 Freq: Status: Active Protocol: LETY.LOWEXT Activity Type Activity Date Activity User E-sign Co-sign Detail Recorded Client Recorded Date Recorded By Document 11/23/24 10:46 KW [id number] 11/23/24 10:56 KW Document 12/07/24 11:00 DS [id number] 12/07/24 11:13 DS Document 12/09/24 10:02 KW [id number] 12/09/24 10:22 KW Document 12/14/24 10:33 ML [id number] 12/14/24 10:47 ML 11/23/24 12/07/24 12/09/24 10:46 11:00 10:02 - Today's Visit Information Type of service Follow-up Visit Follow-up Visit Nurse-only (Physician/EVENTS ADMINISTRATIVE ASSISTANT (Physician/EVENTS ADMINISTRATIVE ASSISTANT Visit ) ) Arrival Mode Ambulatory Ambulatory Ambulatory Patient Identification Verified (Name & Yes Yes Yes ) Patient Requires Transmission-Based Precautions Safety Precautions Fall Prevention Vital Signs Temperature (97.8 F-99.1 F) 97.0 F L 97.2 F L 96.9 F L Temperature Source Temporal Temporal Temporal Pulse Rate (60-100) 73 74 Pulse Location Monitor Monitor Monitor Respiratory Rate (12-18) 18 20 H 18 Respiratory rate source Observation Observation Observation Oxygen Delivery Method Room Air Room Air Room Air Blood Pressure (90/60-120/80) 147/81 H 151/77 H 164/69 H Blood Pressure Mean (mm Hg) 103 101 100 Source Monitor Monitor Monitor Position Semi-Fowlers Sitting Semi-Fowlers Blood Pressure Location Left Arm Right Arm Left Arm History Since Last Visit- (Skip if this is Patient's initial visit) Have you changed medications since your No No No last visit? Any new allergies or adverse reactions No No No Had a fall/change in ADL's that may No No No increase risk of falls Signs or symptoms of abuse and/or No No No neglect since last visit Have you been in the hospital since your No No No last visit? Has dressing in place as prescribed Yes Yes Yes Has compression in place as prescribed Yes Yes Yes Has offloadiing in place as prescribed N/A N/A N/A Experienced any changes in pain level or No No No management Left Footwear Regular Shoe Regular Shoe Regular Shoe Right Footwear Regular Shoe Regular Shoe Regular Shoe Pain Scale: 0-10 Numeric Is Patient Pain Free? Yes Yes Yes 12/14/24 10:33 - Today's Visit Information Type of service Follow-up Visit (Physician/EVENTS ADMINISTRATIVE ASSISTANT ) Arrival Mode Ambulatory Patient Identification Verified (Name & Yes ) Patient Requires Transmission-Based No Precautions Safety Precautions Vital Signs Temperature (97.8 F-99.1 F) 97.6 F L Temperature Source Temporal Pulse Rate (60-100) 74 Pulse Location Monitor Respiratory Rate (12-18) 15 Respiratory rate source Observation Oxygen Delivery Method Blood Pressure (90/60-120/80) 154/84 H Blood Pressure Mean (mm Hg) 107 Source Monitor Position Sitting Blood Pressure Location Right Arm History Since Last Visit- (Skip if this is Patient's initial visit) Have you changed medications since your No last visit? Any new allergies or adverse reactions No Had a fall/change in ADL's that may No increase risk of falls Signs or symptoms of abuse and/or No neglect since last visit Have you been in the hospital since your No last visit? Has dressing in place as prescribed Yes Has compression in place as prescribed Yes Has offloadiing in place as prescribed Yes Experienced any changes in pain level or No management Left Footwear Right Footwear Pain Scale: 0-10 Numeric Is Patient Pain Free? Yes - Nurse 1 - General Ulcer Measurement Start: 11/23/24 10:46 Freq: Status: Active Protocol: Activity Type Activity Date Activity User E-sign Co-sign Detail Recorded Client Recorded Date Recorded By Document 11/23/24 10:46 KW [id number] 11/23/24 10:56 KW Document 12/07/24 11:00 DS [id number] 12/07/24 11:13 DS Document 12/14/24 10:33 ML [id number] 12/14/24 10:47 ML 11/23/24 12/07/24 12/14/24 10:46 11:00 10:33 Wound Center Nurse 1 2-LEFT LATERAL LEG -Current Size (cm) - Length 0.5 1.0 0.5 -Current Size (cm) - Width 0.5 0.4 0.5 -Current Size (cm) - Depth 0.2 0.1 0.1 -Total Square Cm 0.25 0.40 0.25 -Date of Last Picture (Recall this 11/23/24 12/07/24 field) -Photo Taken No -Tunneling No -Undermining/Tunneling No -Circular Undermining No -Exudate Amt None Present Small Medium -Exudate Type Serosanguineous Serosanguineous Serosanguineous -Wound Margin Thickened Distinct, Outline Attached -Granulation Amt Small (1-33%) Medium (34-66%) -Granulation Quality [place] -Slough/Fibrin Yes -Necrosis Amt Large (67-100%) Large (67-100%) Medium (34-66%) -Necrotic Tissue Type Adherent Slough Adherent Slough Adherent Slough -Texture (Glenda-wound Skin Appearance) Assessed Assessed Assessed -Moisture (Glenda-wound Skin Appearance) Assessed Assessed Assessed -Color (Glenda-wound Skin Appearance) Assessed Assessed Assessed -Temperature (Glenda-wound Skin No Abnormality No Abnormality No Abnormality Appearance) (Pt Warm) (Pt Warm) (Pt Warm) -Tenderness on Palpation (Glenda-wound No No Yes Skin Appearance) -Ulcer Cleansing Rinsed/ Soap and Water Soap and Water Irrigated with Saline -Foul Odor after Cleansing No No No -Anesthetic Used 5% Lidocaine 5% Lidocaine 5% Lidocaine Gel Gel Gel #1 LT LAT FOOT -Current Size (cm) - Length 2.7 1.5 2.5 -Current Size (cm) - Width 1.5 3.2 0.1 -Current Size (cm) - Depth 0.3 0.3 0.2 -Total Square Cm 4.05 4.80 0.25 -Date of Last Picture (Recall this 11/23/24 12/07/24 field) -Photo Taken Yes -Tunneling No -Undermining/Tunneling No -Circular Undermining No -Exudate Amt Medium -Exudate Type Serosanguineous -Wound Margin Thickened & Distinct, Rolled Under Outline Attached -Granulation Amt Medium (34-66%) Medium (34-66%) -Granulation Quality Red -Necrosis Amt Medium (34-66%) Large (67-100%) Medium (34-66%) -Necrotic Tissue Type Adherent Slough Adherent Slough Adherent Slough -Texture (Glenda-wound Skin Appearance) Assessed Assessed Assessed -Moisture (Glenda-wound Skin Appearance) Assessed Assessed Assessed -Color (Glenda-wound Skin Appearance) Assessed Assessed Assessed -Temperature (Glenda-wound Skin No Abnormality No Abnormality Appearance) (Pt Warm) (Pt Warm) -Tenderness on Palpation (Glenda-wound No No Yes Skin Appearance) -Ulcer Cleansing Rinsed/ Soap and Water Soap and Water Irrigated with Saline -Foul Odor after Cleansing No No No -Anesthetic Used 5% Lidocaine 5% Lidocaine 5% Lidocaine Gel Gel Gel Left Calf (cm) 39.5 39 Left Ankle (cm) 24.5 25 WC - Nurse 2 - General Ulcer CM Notes Start: 11/23/24 10:46 Freq: Status: Active Protocol: Activity Type Activity Date Activity User E-sign Co-sign Detail Recorded Client Recorded Date Recorded By Document 11/23/24 11:03 [id number] 11/23/24 11:06 Document 12/07/24 11:23 [id number] 12/07/24 11:27 Document 12/14/24 11:03 [id number] 12/14/24 11:09 11/23/24 12/07/24 12/14/24 11:03 11:23 11:03 Wound Center Nurse 2 3-LEFT MEDIAL ANKLE -Time 11:06 -Correct Patient Yes Yes -Correct Side, Site, Position Yes No -Correct Procedure Yes No -Procedure Performed Yes No -Type of Procedure Debridement -Clinical Debridement Subcutaneous -Tissue Removed Subcutaneous -Post Debridement (cm) - Length 0.5 0 -Post Debridement (cm) - Width 0.2 0 -Post Debridement (cm) - Depth 0.2 0 -Total Square (Post) (cm) 0.10 0 -Area of Debridement (cm) - Length 0.5 0 -Area of Debridement (cm) - Width 0.2 0 -Total Square (Area) (cm) 0.10 0 -Tunneling No -Undermining/Tunneling No -Circular Undermining No -Wound/Ulcer Outcome Not Healed Healed- Epithelialized -Ulcer Cleansing Rinsed/ Irrigated with Saline -Foul Odor after Cleansing No -Bioengineered Tissue No -Bleeding Controlled with Pressure -Treatment Response Procedure Tolerated Well -Offloading No -Debridement - Subq, 1st 20sq cm Yes 2-LEFT LATERAL LEG -Time 11:03 11:24 11:03 -Correct Patient Yes Yes Yes -Correct Side, Site, Position Yes Yes Yes -Correct Procedure Yes Yes Yes -Procedure Performed Yes Yes Yes -Type of Procedure Debridement Debridement Debridement -Clinical Debridement Subcutaneous Subcutaneous Subcutaneous -Tissue Removed Subcutaneous Subcutaneous Subcutaneous -Post Debridement (cm) - Length 0.9 1.0 0.8 -Post Debridement (cm) - Width 0.5 0.4 0.4 -Post Debridement (cm) - Depth 0.2 0.2 0.1 -Total Square (Post) (cm) 0.45 0.40 0.32 -Area of Debridement (cm) - Length 0.9 1.0 0.8 -Area of Debridement (cm) - Width 0.5 0.4 0.4 -Total Square (Area) (cm) 0.45 0.40 0.32 -Tunneling No No No -Undermining/Tunneling No No No -Circular Undermining No No No -Wound/Ulcer Outcome Not Healed Not Healed Not Healed -Ulcer Cleansing Rinsed/ Rinsed/ Rinsed/ Irrigated with Irrigated with Irrigated with Saline Saline Saline -Foul Odor after Cleansing No No No -Bioengineered Tissue No No No -Bleeding Controlled with Pressure Pressure Pressure -Treatment Response Procedure Procedure Procedure Tolerated Well Tolerated Well Tolerated Well -Offloading No No No -Debridement - Subq, 1st 20sq cm No Yes Yes #1 LT LAT FOOT -Time 11:04 11:24 11:04 -Correct Patient Yes Yes Yes -Correct Side, Site, Position Yes Yes Yes -Correct Procedure Yes Yes Yes -Procedure Performed Yes Yes Yes -Type of Procedure Debridement Debridement Debridement -Clinical Debridement Subcutaneous Subcutaneous Subcutaneous -Tissue Removed Subcutaneous Subcutaneous Subcutaneous -Post Debridement (cm) - Length 3.0 2.7 2.2 -Post Debridement (cm) - Width 1.2 1.2 1.0 -Post Debridement (cm) - Depth 0.2 0.2 0.2 -Total Square (Post) (cm) 3.60 3.24 2.20 -Area of Debridement (cm) - Length 3.0 2.7 2.2 -Area of Debridement (cm) - Width 1.2 1.2 1.0 -Total Square (Area) (cm) 3.60 3.24 2.20 -Tunneling No No No -Undermining/Tunneling No No No -Circular Undermining No No No -Wound/Ulcer Outcome Not Healed Not Healed Not Healed -Ulcer Cleansing Rinsed/ Rinsed/ Rinsed/ Irrigated with Irrigated with Irrigated with Saline Saline Saline -Foul Odor after Cleansing No No No -Bioengineered Tissue No Yes Yes -Type of Bioengineered Tissue Epicord Epifix -Expiration Date 05/21/29 04/23/29 -Product Lot Number [id number] -Percent Used 100 100 -Lot number of Saline Used [id number] -Bleeding Controlled with Pressure Pressure Pressure -Treatment Response Procedure Procedure Procedure Tolerated Well Tolerated Well Tolerated Well -Offloading No No No -Debridement - Subq, 1st 20sq cm No No No -Apply Skin Sub - 1st 25 sq cm - Feet 1 1 -Epicord Application 1-4 (per sq cm) 6 -Epifix Application 1-4 (per sq cm) 4 Pain Scale: 0-10 Numeric Is Patient Pain Free? Yes Yes Yes - Nurse 3 - General Ulcer D/C NN Start: 11/23/24 10:46 Freq: Status: Active Protocol: Activity Type Activity Date Activity User E-sign Co-sign Detail Recorded Client Recorded Date Recorded By Document 12/07/24 11:48 CP [id number] 12/07/24 11:49 CP Document 12/09/24 10:02 KW [id number] 12/09/24 10:22 KW Document 12/14/24 11:28 GM [id number] 12/14/24 11:29 12/07/24 12/09/24 12/14/24 11:48 10:02 11:28 Wound Care Center Nurse 3 2-LEFT LATERAL LEG -Ulcer Cleansing Soap and Water Not Cleansed -Foul Odor after Cleansing No -Primary Dressing Applied Optilok 5x5 1/2 Optilok 5x5 1/2 -Primary Dressing Covered/Secured with Dry Gauze -Optilok 5x5 1/2 1 1 #1 LT LAT FOOT -Ulcer Cleansing Not Cleansed -Foul Odor after Cleansing No -Primary Dressing Applied Optilok 5x5 1/2 -Primary Dressing Covered/Secured with Dry Gauze Dry Gauze & Roll Gauze, Secured with Tape -Optilok 5x5 1/2 1 LLE -Lotion applied to leg before No compression wrap -Multi-Layered Wrap Application Unna Boot - Unna Boot - Left Left -Tubular Bandage Single Layer -Size of Tubigrip Used Size E -Size E ($) 1 -Unna- Left (Qty applied) 1 1 Pain Scale: 0-10 Numeric Is Patient Pain Free? Yes Yes Yes - Visit Discharge Discharge Condition Stable Stable Stable Ambulatory Status Ambulatory Ambulatory,Cane Ambulatory,Cane Transportation Private Auto Private Auto Private Auto Medication Reconcilliation completed & No provided to patient/care provider Clinical Summary of Care Provided Yes Yes Assessment/Plan Assessment/Plan (1) Non-pressure chronic ulcer of left ankle with fat layer exposed: CODE(S): L97.322 - Non-pressure chronic ulcer of left ankle with fat layer exposed PLAN: Patient was examined and evaluated. All findings were discussed with the patient. All questions were answered to the patient satisfaction. Excisional debridement down to including subcutaneous tissue of left lateral leg full-thickness wound done with a number 3 mm dermal curette down without incident. Predebridement measurement was sanguinous crust. Postdebridement measurement is 0.8 x 0.4 x 0.1 cm. Excisional debridement down to and including subcutaneous tissue of the left lateral foot full-thickness wound done with a number 3 mm dermal curette done without incident. Predebridement measurement was 2.0 x 0.8 x 0.1 cm. Pos tdebridement measurement 2.2 x 1.0 x 0.2 cm. EpiFix 2.0 x 2.0 cm was applied to the left full-thickness ulceration with 100% use. Fifth application. The graft site was free and clear of any infection. The wound/skin graft substitute was dressed with nonadherent bandage secured in place with Steri-Strips followed by bolster dressing as well as a double layer Tubigrip. Patient will change into his personal compression stocking to left lower extremity. Patient will follow-up with Dr. Ennis in the wound care center in 1 week. (2) Non-pressure chronic ulcer of other part of left foot with fat layer exposed: CODE(S): L97.522 - Non-pressure chronic ulcer of other part of left foot with fat layer exposed (3) Other specified peripheral vascular diseases: CODE(S): I73.89 - Other specified peripheral vascular diseases
--- NOTE | 2024-12-16 08:56 | WC ---
PHOTO-LLE 12/13/24
== END 2024-12-20 23:59 | disposition home or self-care (01) ==
LOC: WC 10:30
PROVIDERS: PCP Family Medicine; Referring Provider Family Medicine; Visit Provider Podiatrist Foot & Ankle Surgery
DX: L97.522 Non-pressure chronic ulcer of other part of left foot with fat layer exposed (principal); L97.322 Non-pressure chronic ulcer of left ankle with fat layer exposed; I73.89 Other specified peripheral vascular diseases
CPT/HCPCS: 11042; 15275; 29580; Q4186; Q4187

== ENCOUNTER 2025-01-18 11:30 | Outpatient (RCR) | payer MEDICARE, SELFPAY ==
[2024-12-28 10:57] VITALS: BP 134/91; PULSE 83; RESP 16; TEMP 36.4
--- NOTE | 2024-12-28 13:05 | PCM.WC.PN ---
History of Present Illness Date of Service: 12/28/24 Chief Complaint: Full-thickness wound, left foot and ankle. History of Wound: Full-thickness wound to left foot and ankle secondary to venous insufficiency. Patient has extensive history of vascular intervention from Dr. Rock Progress of Wound: Stable and improving full-thickness wound to the left leg and foot. Subjective Subjective Patient is a 74-year-old male presenting to the wound care center today follow-up evaluation of full-thickness wound to the left leg and left foot. Patient states the wound to the left leg is now healed. He has been doing dressing changes if there was concern for drainage. He has reduced his smoking. He has no pain to left foot. He denies trauma. Denies constitutional symptoms. No other pedal complaints at this time Objective Data Objective Data Vital Signs: Vital Signs Temp Pulse Resp BP O2 Del Method 97.6 F L 83 16 134/91 H Room Air 12/28/24 10:57 12/28/24 10:57 12/28/24 10:57 12/28/24 10:57 12/28/24 10:57 Oxygen Delivery Method Room Air Physical Exam Narrative Vascular: DP and PT pulses are biphasic on Doppler. CFT is brisk. Skin temperature gradient is warm to warm from proximal ankles to distal digit. No focal increase is noted. Diffuse hemosiderin deposits are appreciated to the left lower extremity. No erythema. Neurological: Light touch is intact. Patient responds to painful stimuli. Dermatological: Evidence of full-thickness wound to the left lateral leg is now healed. Evidence of full-thickness wound to the left lateral foot measuring 2.0 x 1.0 x 0.2 cm. Wound base is fibrogranular nature. No erythema. Excisional debridement down to and including subcutaneous tissue of the left lateral foot full-thickness wound done with a number 3 mm dermal curette done without incident. Predebridement measurement was 1.8 x 0.7 x 0.1 cm. Postdebridement measurement 2.0 x 1.0 x 0.2 cm. EpiFix 18 mm disc was applied to the left full-thickness ulceration with 100% use. Sixth application. The graft site was free and clear of any infection. The wound/skin graft substitute was dressed with nonadherent bandage secured in place with Steri-Strips followed by bolster dressing as well as a double layer Tubigrip. Patient will change into his personal compression stocking to left lower extremity. Muscle skeletal: Decreased range of motion to the left ankle secondary to osteoarthritis. No pain on palpation to both full-thickness wounds to the left lower extremity. No pain with calf pressure. Debridement Note Debridement Note Debridement Free Text: Excisional debridement down to and including subcutaneous tissue of the left lateral foot full-thickness wound done with a number 3 mm dermal curette done without incident. Predebridement measurement was 1.8 x 0.7 x 0.1 cm. Postdebridement measurement 2.0 x 1.0 x 0.2 cm. EpiFix 18 mm disc was applied to the left full-thickness ulceration with 100% use. Sixth application. The graft site was free and clear of any infection. The wound/skin graft substitute was dressed with nonadherent bandage secured in place with Steri-Strips followed by bolster dressing as well as a double layer Tubigrip. Patient will change into his personal compression stocking to left lower extremity. Post-Debridement Measurements and Additional Note: Post-Debridement Measurements/Treatment - Nurse 1 - General Ulcer Assessment Start: 12/28/24 10:56 Freq: Status: Active Protocol: LETY.LOWEXT Activity Type Activity Date Activity User E-sign Co-sign Detail Recorded Client Recorded Date Recorded By Document 12/28/24 10:57 [id number] 12/28/24 11:01 12/28/24 10:57 - Today's Visit Information Type of service Follow-up Visit (Physician/WEIGHT CALCULATOR ) Arrival Mode Ambulatory Transfer Assistance None Patient Identification Verified (Name & Yes ) Vital Signs Temperature (97.8 F-99.1 F) 97.6 F L Temperature Source Temporal Pulse Rate (60-100) 83 Pulse Location Monitor Respiratory Rate (12-18) 16 Respiratory rate source Observation Oxygen Delivery Method Room Air Blood Pressure (90/60-120/80) 134/91 H Blood Pressure Mean (mm Hg) 105 Source Monitor Position Sitting Blood Pressure Location Right Arm History Since Last Visit- (Skip if this is Patient's initial visit) Have you changed medications since your No last visit? Any new allergies or adverse reactions No Had a fall/change in ADL's that may No increase risk of falls Signs or symptoms of abuse and/or No neglect since last visit Have you been in the hospital since your No last visit? Has dressing in place as prescribed Yes Has compression in place as prescribed Yes Has offloadiing in place as prescribed N/A Experienced any changes in pain level or No management Pain Scale: 0-10 Numeric Is Patient Pain Free? Yes WC - Nurse 1 - General Ulcer Measurement Start: 12/28/24 10:56 Freq: Status: Active Protocol: Activity Type Activity Date Activity User E-sign Co-sign Detail Recorded Client Recorded Date Recorded By Document 12/28/24 10:57 [id number] 12/28/24 11:01 12/28/24 10:57 Wound Center Nurse 1 2-LEFT LATERAL LEG -Current Size (cm) - Length 0.6 -Current Size (cm) - Width 0.4 -Current Size (cm) - Depth 0.1 -Total Square Cm 0.24 -Photo Taken No -Epithelialization Small 1-33% -Tunneling No -Undermining/Tunneling No -Circular Undermining No -Exudate Amt None Present -Wound Margin Distinct, Outline Attached -Granulation Amt None Present (0 %) -Texture (Glenda-wound Skin Appearance) Assessed -Moisture (Glenda-wound Skin Appearance) Assessed -Color (Glenda-wound Skin Appearance) Assessed -Temperature (Glenda-wound Skin No Abnormality Appearance) (Pt Warm) -Tenderness on Palpation (Glenda-wound No Skin Appearance) -Ulcer Cleansing Soap and Water -Foul Odor after Cleansing No -Anesthetic Used 5% Lidocaine Gel -Wound Comment(s) scabbed over #1 LT LAT FOOT -Current Size (cm) - Length 0.7 -Current Size (cm) - Width 1.5 -Current Size (cm) - Depth 0.1 -Total Square Cm 1.05 -Photo Taken No -Epithelialization None Present -Tunneling No -Undermining/Tunneling No -Circular Undermining No -Exudate Amt Medium -Exudate Type Yellow/Green -Wound Margin Distinct, Outline Attached -Granulation Amt Small (1-33%) -Granulation Quality [place] -Slough/Fibrin Yes -Necrosis Amt Medium (34-66%) -Necrotic Tissue Type Adherent Slough -Texture (Glenda-wound Skin Appearance) Assessed -Moisture (Glenda-wound Skin Appearance) Assessed -Color (Glenda-wound Skin Appearance) Assessed -Temperature (Glenda-wound Skin No Abnormality Appearance) (Pt Warm) -Tenderness on Palpation (Glenda-wound No Skin Appearance) -Ulcer Cleansing Soap and Water -Foul Odor after Cleansing No -Anesthetic Used 5% Lidocaine Gel LETY - Nurse 2 - General Ulcer CM Notes Start: 12/28/24 10:56 Freq: Status: Active Protocol: Activity Type Activity Date Activity User E-sign Co-sign Detail Recorded Client Recorded Date Recorded By Document 12/28/24 11:16 BILL [id number] 12/28/24 11:17 BILL 12/28/24 11:16 Wound Center Nurse 2 2-LEFT LATERAL LEG -Correct Patient Yes -Correct Side, Site, Position No -Correct Procedure No -Procedure Performed No -Post Debridement (cm) - Length 0 -Post Debridement (cm) - Width 0 -Post Debridement (cm) - Depth 0 -Total Square (Post) (cm) 0 -Area of Debridement (cm) - Length 0 -Area of Debridement (cm) - Width 0 -Total Square (Area) (cm) 0 -Wound/Ulcer Outcome Healed- Epithelialized #1 LT LAT FOOT -Time 11:16 -Correct Patient Yes -Correct Side, Site, Position Yes -Correct Procedure Yes -Procedure Performed Yes -Type of Procedure Debridement -Clinical Debridement Subcutaneous -Tissue Removed Subcutaneous -Post Debridement (cm) - Length 2 -Post Debridement (cm) - Width 1 -Post Debridement (cm) - Depth 0.2 -Total Square (Post) (cm) 2 -Area of Debridement (cm) - Length 2 -Area of Debridement (cm) - Width 1 -Total Square (Area) (cm) 2 -Tunneling No -Undermining/Tunneling No -Circular Undermining No -Wound/Ulcer Outcome Not Healed -Ulcer Cleansing Rinsed/ Irrigated with Saline -Foul Odor after Cleansing No -Bioengineered Tissue Yes -Type of Bioengineered Tissue Epifix 18mm Disc -Expiration Date 07/21/29 -Product Lot Number [id number] -Percent Used 100 -Lot number of Saline Used [id number] -Bleeding Controlled with Pressure -Treatment Response Procedure Tolerated Well -Offloading No -Debridement - Subq, 1st 20sq cm No -Apply Skin Sub - 1st 25 sq cm - Feet 1 -Epifix 18mm Disc Application 1-4 3 Pain Scale: 0-10 Numeric Is Patient Pain Free? Yes LETY - Nurse 3 - General Ulcer D/C NN Start: 12/28/24 10:56 Freq: Status: Active Protocol: Activity Type Activity Date Activity User E-sign Co-sign Detail Recorded Client Recorded Date Recorded By Document 12/28/24 11:24 [id number] 12/28/24 11:24 12/28/24 11:24 Wound Care Center Nurse 3 #1 LT LAT FOOT -Ulcer Cleansing Not Cleansed -Foul Odor after Cleansing No -Primary Dressing Covered/Secured with Dry Gauze & Roll Gauze, Secured with Tape Pain Scale: 0-10 Numeric Is Patient Pain Free? Yes WC - Visit Discharge Discharge Condition Stable Ambulatory Status Ambulatory Transportation Private Auto Assessment/Plan Assessment/Plan (1) Non-pressure chronic ulcer of other part of left foot with fat layer exposed: CODE(S): L97.522 - Non-pressure chronic ulcer of other part of left foot with fat layer exposed PLAN: Patient was examined and evaluated. All findings were discussed with the patient. All questions were answered to the patient's satisfaction. Excisional debridement down to and including subcutaneous tissue of the left lateral foot full-thickness wound done with a number 3 mm dermal curette done without incident. Predebridement measurement was 1.8 x 0.7 x 0.1 cm. Postdebridement measurement 2.0 x 1.0 x 0.2 cm. EpiFix 18 mm disc was applied to the left full-thickness ulceration with 100% use. Sixth application. The graft site was free and clear of any infection. The wound/skin graft substitute was dressed with nonadherent bandage secured in place with Steri-Strips followed by bolster dressing and patient personal compression stocking to left lower extremity. Patient will change outer dressing as needed. Patient educated to elevate whenever he is at rest which he is understanding of. Follow-up at the wound care center with Dr. Ennis in 1 week. (2) Other specified peripheral vascular diseases: CODE(S): I73.89 - Other specified peripheral vascular diseases
[2025-01-04 11:26] VITALS: BP 174/84; PULSE 73; RESP 18; TEMP 36.7
--- NOTE | 2025-01-04 12:24 | PCM.WC.PN ---
History of Present Illness Date of Service: 01/04/25 Chief Complaint: Full-thickness wound, left foot and ankle. History of Wound: Full-thickness wound to left foot and ankle secondary to venous insufficiency. Patient has extensive history of vascular intervention from Dr. Rock Progress of Wound: Stable full-thickness wound to lateral left foot with signs of maceration secondary to drainage. Subjective Subjective Patient is a 74-year-old male presenting to clinic today follow-up evaluation of full-thickness wound to lateral left foot. Patient has been compliant with dressing changes. He mitts to more swelling secondary to being on his left leg and chopping down [place] at his home. He does elevate but states there is some pain with elevation. He is concerned for infection. He denies trauma. Denies constitutional symptoms. No other pedal complaints at this time. Objective Data Objective Data Vital Signs: Vital Signs Temp Pulse Resp BP O2 Del Method 98.0 F 73 18 174/84 H Room Air 01/04/25 11:26 01/04/25 11:26 01/04/25 11:26 01/04/25 11:26 01/04/25 11:26 Oxygen Delivery Method Room Air Physical Exam Narrative Vascular: DP and PT pulses are biphasic on Doppler. CFT is brisk. Skin temperature gradient is warm to warm from proximal ankles to distal digit. No focal increase is noted. Diffuse hemosiderin deposits are appreciated to the left lower extremity. No erythema. Neurological: Light touch is intact. Patient responds to painful stimuli. Dermatological: Evidence of full-thickness wound to the left lateral foot measuring 2.5 x 1.1 x 0.2 cm wound base is fibrogranular nature. No erythema. Excisional debridement down to and including subcutaneous tissue of the left lateral foot full-thickness wound done with a number 3 mm dermal curette done without incident. Predebridement measurement was 2.3 x 1.0 x 0.1 cm. Postdebridement measurement 2.5 x 1.1 x 0.2 cm Muscle skeletal: Mild pain on palpation to both full-thickness wounds to the left lower extremity. No pain with calf pressure. Debridement Note Debridement Note Debridement Free Text: Excisional debridement down to and including subcutaneous tissue of the left lateral foot full-thickness wound done with a number 3 mm dermal curette done without incident. Predebridement measurement was 2.3 x 1.0 x 0.1 cm. Postdebridement measurement 2.5 x 1.1 x 0.2 cm Post-Debridement Measurements and Additional Note: Post-Debridement Measurements/Treatment WC - Nurse 1 - General Ulcer Assessment Start: 12/28/24 10:56 Freq: Status: Active Protocol: ENDER Activity Type Activity Date Activity User E-sign Co-sign Detail Recorded Client Recorded Date Recorded By Document 12/28/24 10:57 [id number] 12/28/24 11:01 Document 01/04/25 11:26 [id number] 01/04/25 11:37 12/28/24 01/04/25 10:57 11:26 WC - Today's Visit Information Type of service Follow-up Visit Follow-up Visit (Physician/CONTINUOUS DRYOUT OPERATOR HELPER (Physician/CONTINUOUS DRYOUT OPERATOR HELPER ) ) Arrival Mode Ambulatory Ambulatory Transfer Assistance None Patient Identification Verified (Name & Yes Yes ) Vital Signs Temperature (97.8 F-99.1 F) 97.6 F L 98.0 F Temperature Source Temporal Temporal Pulse Rate (60-100) 83 73 Pulse Location Monitor Monitor Respiratory Rate (12-18) 16 18 Respiratory rate source Observation Observation Oxygen Delivery Method Room Air Room Air Blood Pressure (90/60-120/80) 134/91 H 174/84 H Blood Pressure Mean (mm Hg) 105 114 Source Monitor Monitor Position Sitting Sitting Blood Pressure Location Right Arm Left Arm History Since Last Visit- (Skip if this is Patient's initial visit) Have you changed medications since your No No last visit? Any new allergies or adverse reactions No No Had a fall/change in ADL's that may No No increase risk of falls Signs or symptoms of abuse and/or No No neglect since last visit Have you been in the hospital since your No No last visit? Has dressing in place as prescribed Yes Yes Has compression in place as prescribed Yes Yes Has offloadiing in place as prescribed N/A N/A Experienced any changes in pain level or No No management Pain Scale: 0-10 Numeric Is Patient Pain Free? Yes Yes - Nurse 1 - General Ulcer Measurement Start: 12/28/24 10:56 Freq: Status: Active Protocol: Activity Type Activity Date Activity User E-sign Co-sign Detail Recorded Client Recorded Date Recorded By Document 12/28/24 10:57 [id number] 12/28/24 11:01 Document 01/04/25 11:26 [id number] 01/04/25 11:37 GM 12/28/24 01/04/25 10:57 11:26 Wound Center Nurse 1 2-LEFT LATERAL LEG -Current Size (cm) - Length 0.6 -Current Size (cm) - Width 0.4 -Current Size (cm) - Depth 0.1 -Total Square Cm 0.24 -Photo Taken No -Epithelialization Small 1-33% -Tunneling No -Undermining/Tunneling No -Circular Undermining No -Exudate Amt None Present -Wound Margin Distinct, Outline Attached -Granulation Amt None Present (0 %) -Texture (Glenda-wound Skin Appearance) Assessed -Moisture (Glenda-wound Skin Appearance) Assessed -Color (Glenda-wound Skin Appearance) Assessed -Temperature (Glenda-wound Skin No Abnormality Appearance) (Pt Warm) -Tenderness on Palpation (Glenda-wound No Skin Appearance) -Ulcer Cleansing Soap and Water -Foul Odor after Cleansing No -Anesthetic Used 5% Lidocaine Gel -Wound Comment(s) scabbed over #1 LT LAT FOOT -Current Size (cm) - Length 0.7 0.1 -Current Size (cm) - Width 1.5 0.1 -Current Size (cm) - Depth 0.1 0.1 -Total Square Cm 1.05 0.01 -Photo Taken No No -Epithelialization None Present None Present -Tunneling No No -Undermining/Tunneling No No -Circular Undermining No No -Exudate Amt Medium Large -Exudate Type Yellow/Green Yellow/Green -Wound Margin Distinct, Distinct, Outline Outline Attached Attached -Granulation Amt Small (1-33%) Small (1-33%) -Granulation Quality [place] -Slough/Fibrin Yes Yes -Necrosis Amt Medium (34-66%) Small (1-33%) -Necrotic Tissue Type Adherent Slough Adherent Slough -Texture (Glenda-wound Skin Appearance) Assessed Assessed -Moisture (Glenda-wound Skin Appearance) Assessed Assessed -Color (Glenda-wound Skin Appearance) Assessed Assessed -Temperature (Glenda-wound Skin No Abnormality No Abnormality Appearance) (Pt Warm) (Pt Warm) -Tenderness on Palpation (Glenda-wound No No Skin Appearance) -Ulcer Cleansing Soap and Water Soap and Water -Foul Odor after Cleansing No No -Anesthetic Used 5% Lidocaine 5% Lidocaine Gel Gel WC - Nurse 2 - General Ulcer CM Notes Start: 12/28/24 10:56 Freq: Status: Active Protocol: Activity Type Activity Date Activity User E-sign Co-sign Detail Recorded Client Recorded Date Recorded By Document 12/28/24 11:16 [id number] 12/28/24 11:17 Document 01/04/25 11:42 [id number] 01/04/25 11:47 12/28/24 01/04/25 11:16 11:42 Wound Center Nurse 2 2-LEFT LATERAL LEG -Correct Patient Yes -Correct Side, Site, Position No -Correct Procedure No -Procedure Performed No -Post Debridement (cm) - Length 0 -Post Debridement (cm) - Width 0 -Post Debridement (cm) - Depth 0 -Total Square (Post) (cm) 0 -Area of Debridement (cm) - Length 0 -Area of Debridement (cm) - Width 0 -Total Square (Area) (cm) 0 -Wound/Ulcer Outcome Healed- Epithelialized #1 LT LAT FOOT -Time 11:16 11:42 -Correct Patient Yes Yes -Correct Side, Site, Position Yes Yes -Correct Procedure Yes Yes -Procedure Performed Yes Yes -Type of Procedure Debridement Debridement -Clinical Debridement Subcutaneous Subcutaneous -Tissue Removed Subcutaneous Subcutaneous -Post Debridement (cm) - Length 2 -Post Debridement (cm) - Width 1 -Post Debridement (cm) - Depth 0.2 -Total Square (Post) (cm) 2 -Area of Debridement (cm) - Length 2 -Area of Debridement (cm) - Width 1 -Total Square (Area) (cm) 2 -Tunneling No No -Undermining/Tunneling No No -Circular Undermining No No -Wound/Ulcer Outcome Not Healed Not Healed -Ulcer Cleansing Rinsed/ Rinsed/ Irrigated with Irrigated with Saline Saline -Foul Odor after Cleansing No No -Bioengineered Tissue Yes No -Type of Bioengineered Tissue Epifix 18mm Disc -Expiration Date 07/21/29 -Product Lot Number [id number] -Percent Used 100 -Lot number of Saline Used [id number] -Bleeding Controlled with Pressure Pressure -Treatment Response Procedure Procedure Tolerated Well Tolerated Well -Offloading No No -Debridement - Subq, 1st 20sq cm No Yes -Apply Skin Sub - 1st 25 sq cm - Feet 1 -Epifix 18mm Disc Application 1-4 3 Pain Scale: 0-10 Numeric Is Patient Pain Free? Yes Yes - Nurse 3 - General Ulcer D/C NN Start: 12/28/24 10:56 Freq: Status: Active Protocol: Activity Type Activity Date Activity User E-sign Co-sign Detail Recorded Client Recorded Date Recorded By Document 12/28/24 11:24 GM [id number] 12/28/24 11:24 GM Document 01/04/25 11:54 ML [id number] 01/04/25 11:55 ML 12/28/24 01/04/25 11:24 11:54 Wound Care Center Nurse 3 #1 LT LAT FOOT -Ulcer Cleansing Not Cleansed -Foul Odor after Cleansing No -Primary Dressing Applied Optilok 5x5 1/2 -Other Dressing betadine wash -Primary Dressing Covered/Secured with Dry Gauze & Dry Gauze & Roll Gauze, Roll Gauze Secured with Tape -Optilok 5x5 1/2 1 Pain Scale: 0-10 Numeric Is Patient Pain Free? Yes Yes - Visit Discharge Discharge Condition Stable Ambulatory Status Ambulatory Transportation Private Auto Assessment/Plan Assessment/Plan (1) Non-pressure chronic ulcer of other part of left foot with fat layer exposed: CODE(S): L97.522 - Non-pressure chronic ulcer of other part of left foot with fat layer exposed PLAN: Patient was examined and evaluated. All findings were discussed with the patient. All questions were answered to the patient's satisfaction. After exam we will hold off on skin graft substitute for concern of possible soft tissue infection. After debridement culture was taken. Educated the patient on the importance of elevation and not to be on his foot for long periods of time until the wound was healing. However he does have some home chores that he has to get done and will have to be on his foot throughout the weekend. He understands all risk and benefits. Excisional debridement down to and including subcutaneous tissue of the left lateral foot full-thickness wound done with a number 3 mm dermal curette done without incident. Predebridement measurement was 2.3 x 1.0 x 0.1 cm. Postdebridement measurement 2.5 x 1.1 x 0.2 cm the area was wiped clean and patted dry. Betadine paint and soaked gauze were applied to the full-thickness wound to left lower extremity. Again we will hold off on skin graft substitutes. Dry sterile dressing and double layer Tubigrip was donned. Will add antibiotics when cultures return as needed. Follow-up at the wound care center with Dr. Ennis in 1 week. (2) Other specified peripheral vascular diseases: CODE(S): I73.89 - Other specified peripheral vascular diseases
[2025-01-11 09:18] VITALS: BP 176/110; PULSE 84; RESP 18; TEMP 36.1
--- NOTE | 2025-01-13 09:54 | WC ---
PHOTO-LEFT LATERAL FOOT 01/11/25
--- NOTE | 2025-01-14 15:36 | PN.PCM_ITS ---
History of Present Illness Date of Service: 01/14/25 Chief Complaint: Full-thickness wound, left foot and ankle. History of Wound: Full-thickness wound to left foot and ankle secondary to venous insufficiency. Patient has extensive history of vascular intervention from Dr. Rock Progress of Wound: Stable full-thickness wound to lateral left foot with signs of maceration secondary to drainage. Subjective Subjective Patient is a 74-year-old male presenting to clinic today follow-up evaluation of the left foot full-thickness wound. The patient has been compliant with dressing change with silver alginate. He has taken all 3 antibiotics as prescribed. He admitts to some stomach discomfort since he was taking all 3 antibiotics at once. Discussed with the patient to spread them out and take them every 2 hours for the first round and then wait approximately 10 to 12 hours for the next round of antibiotics. He was understanding of this. Patient admits improvement to the wound. Denies trauma. Denies constitutional symptoms. No other pedal complaints at this time. Objective Data Objective Data Vital Signs: Vital Signs Temp Pulse Resp BP O2 Del Method 96.9 F L 84 18 176/110 H Room Air 01/11/25 09:18 01/11/25 09:18 01/11/25 09:18 01/11/25 09:18 01/04/25 11:26 Oxygen Delivery Method Room Air Lab / Micro Data Micro: Microbiology 01/04/25 11:45 Wound - Left Foot Gram Stain - Final 01/04/25 11:45 Wound - Left Foot Wound Culture - Final Citrobacter freundii Providencia rettgeri Staphylococcus epidermidis 01/04/25 11:45 Wound - Left Foot Anaerobic Culture - Final Anaerobic cocci Physical Exam Narrative Vascular: DP and PT pulses are biphasic on Doppler. CFT is brisk. Skin temperature gradient is warm to warm from proximal ankles to distal digit. NNo erytherma Neurological: Light touch is intact. Patient responds to painful stimuli. Dermatological: Evidence of full-thickness wound to the left lateral foot measuring 2.1 x 0.9 x 0.2 cm. Wound base is fibrogranular nature. No erythema. Excisional debridement down to and including subcutaneous tissue of the left lateral foot full-thickness wound done with a number 3 mm dermal curette done without incident. Predebridement measurement was 2.0 x 0.8 x 0.1 cm. Postdebridement measurement 2.1 x 0.9 x 0.2 cm. Muscle skeletal: Mild pain on palpation to both full-thickness wounds to the left lower extremity. No pain with calf pressure. Debridement Note Debridement Note Debridement Free Text: Excisional debridement down to and including subcutaneous tissue of the left lateral foot full-thickness wound done with a number 3 mm dermal curette done without incident. Predebridement measurement was 2.0 x 0.8 x 0.1 cm. Postdebridement measurement 2.1 x 0.9 x 0.2 cm. Post-Debridement Measurements and Additional Note: Post-Debridement Measurements/Treatment - Nurse 1 - General Ulcer Assessment Start: 12/28/24 10:56 Freq: Status: Active Protocol: ENDER Activity Type Activity Date Activity User E-sign Co-sign Detail Recorded Client Recorded Date Recorded By Document 12/28/24 10:57 [id number] 12/28/24 11:01 GM Document 01/04/25 11:26 GM [id number] 01/04/25 11:37 Document 01/11/25 09:18 RB [id number] 01/11/25 09:23 RB 12/28/24 01/04/25 01/11/25 10:57 11:26 09:18 - Today's Visit Information Type of service Follow-up Visit Follow-up Visit Follow-up Visit (Physician/SALES AND MARKETING EXECUTIVE (Physician/SALES AND MARKETING EXECUTIVE (Physician/SALES AND MARKETING EXECUTIVE ) ) ) Arrival Mode Ambulatory Ambulatory Ambulatory Transfer Assistance None None Accompanied by Patient Identification Verified (Name & Yes Yes Yes ) Patient Requires Transmission-Based No Precautions Vital Signs Temperature (97.8 F-99.1 F) 97.6 F L 98.0 F 96.9 F L Temperature Source Temporal Temporal Temporal Pulse Rate (60-100) 83 73 84 Pulse Location Monitor Monitor Monitor Respiratory Rate (12-18) 16 18 18 Respiratory rate source Observation Observation Observation Oxygen Delivery Method Room Air Room Air Blood Pressure (90/60-120/80) 134/91 H 174/84 H 176/110 H Blood Pressure Mean (mm Hg) 105 114 132 Source Monitor Monitor Monitor Position Sitting Sitting Sitting Blood Pressure Location Right Arm Left Arm Left Arm History Since Last Visit- (Skip if this is Patient's initial visit) Have you changed medications since your No No No last visit? Any new allergies or adverse reactions No No No Had a fall/change in ADL's that may No No No increase risk of falls Signs or symptoms of abuse and/or No No No neglect since last visit Have you been in the hospital since your No No No last visit? Has dressing in place as prescribed Yes Yes Yes Has compression in place as prescribed Yes Yes Yes Has offloadiing in place as prescribed N/A N/A N/A Experienced any changes in pain level or No No No management Left Footwear Regular Shoe Right Footwear Regular Shoe Pain Scale: 0-10 Numeric Is Patient Pain Free? Yes Yes Yes LLE -Description Aching -Duration (hours) Acute -Pain Behavior Guarding -Pain Aggravating Factors Exercise/ Activity -Alleviating Factors/Interventions Medication -Effectiveness of Alleviating Factor/ Minimally Intervention effective WC - Nurse 1 - General Ulcer Measurement Start: 12/28/24 10:56 Freq: Status: Active Protocol: Activity Type Activity Date Activity User E-sign Co-sign Detail Recorded Client Recorded Date Recorded By Document 12/28/24 10:57 [id number] 12/28/24 11:01 Document 01/04/25 11:26 [id number] 01/04/25 11:37 Document 01/11/25 09:18 RB [id number] 01/11/25 09:23 RB 12/28/24 01/04/25 01/11/25 10:57 11:26 09:18 Wound Center Nurse 1 2-LEFT LATERAL LEG -Current Size (cm) - Length 0.6 -Current Size (cm) - Width 0.4 -Current Size (cm) - Depth 0.1 -Total Square Cm 0.24 -Photo Taken No -Epithelialization Small 1-33% -Tunneling No -Undermining/Tunneling No -Circular Undermining No -Exudate Amt None Present -Wound Margin Distinct, Outline Attached -Granulation Amt None Present (0 %) -Texture (Glenda-wound Skin Appearance) Assessed -Moisture (Glenda-wound Skin Appearance) Assessed -Color (Glenda-wound Skin Appearance) Assessed -Temperature (Glenda-wound Skin No Abnormality Appearance) (Pt Warm) -Tenderness on Palpation (Glenda-wound No Skin Appearance) -Ulcer Cleansing Soap and Water -Foul Odor after Cleansing No -Anesthetic Used 5% Lidocaine Gel -Wound Comment(s) scabbed over #1 LT LAT FOOT -Combined with other wound No -Current Size (cm) - Length 0.7 0.1 2.2 -Current Size (cm) - Width 1.5 0.1 1.4 -Current Size (cm) - Depth 0.1 0.1 0.2 -Total Square Cm 1.05 0.01 3.08 -Photo Taken No No Yes -Epithelialization None Present None Present -Tunneling No No No -Undermining/Tunneling No No No -Circular Undermining No No No -Exudate Amt Medium Large Medium -Exudate Type Yellow/Green Yellow/Green Serosanguineous -Wound Margin Distinct, Distinct, Thickened & Outline Outline Rolled Under Attached Attached -Granulation Amt Small (1-33%) Small (1-33%) Medium (34-66%) -Granulation Quality Hayfield Hayfield Hayfield -Slough/Fibrin Yes Yes Yes -Necrosis Amt Medium (34-66%) Small (1-33%) Medium (34-66%) -Necrotic Tissue Type Adherent Slough Adherent Slough Adherent Slough -Structure Exposed N/A -Texture (Glenda-wound Skin Appearance) Assessed Assessed Assessed -Moisture (Glenda-wound Skin Appearance) Assessed Assessed Dry/Scaly -Color (Glenda-wound Skin Appearance) Assessed Assessed Assessed -Temperature (Glenda-wound Skin No Abnormality No Abnormality No Abnormality Appearance) (Pt Warm) (Pt Warm) (Pt Warm) -Tenderness on Palpation (Glenda-wound No No No Skin Appearance) -Ulcer Cleansing Soap and Water Soap and Water Wound Cleanser -Foul Odor after Cleansing No No No -Anesthetic Used 5% Lidocaine 5% Lidocaine 5% Lidocaine Gel Gel Gel Lower Limb Edema Present Yes Left Calf (cm) 38.5 Left Ankle (cm) 24 WC - Nurse 2 - General Ulcer CM Notes Start: 12/28/24 10:56 Freq: Status: Active Protocol: Activity Type Activity Date Activity User E-sign Co-sign Detail Recorded Client Recorded Date Recorded By Document 12/28/24 11:16 BILL [id number] 12/28/24 11:17 Document 01/04/25 11:42 [id number] 01/04/25 11:47 Document 01/11/25 09:50 [id number] 01/11/25 09:52 12/28/24 01/04/25 01/11/25 11:16 11:42 09:50 Wound Center Nurse 2 2-LEFT LATERAL LEG -Correct Patient Yes -Correct Side, Site, Position No -Correct Procedure No -Procedure Performed No -Post Debridement (cm) - Length 0 -Post Debridement (cm) - Width 0 -Post Debridement (cm) - Depth 0 -Total Square (Post) (cm) 0 -Area of Debridement (cm) - Length 0 -Area of Debridement (cm) - Width 0 -Total Square (Area) (cm) 0 -Wound/Ulcer Outcome Healed- Epithelialized #1 LT LAT FOOT -Time 11:16 11:42 09:50 -Correct Patient Yes Yes Yes -Correct Side, Site, Position Yes Yes Yes -Correct Procedure Yes Yes Yes -Procedure Performed Yes Yes Yes -Type of Procedure Debridement Debridement Debridement -Clinical Debridement Subcutaneous Subcutaneous Subcutaneous -Tissue Removed Subcutaneous Subcutaneous Subcutaneous -Post Debridement (cm) - Length 2 2.1 -Post Debridement (cm) - Width 1 0.9 -Post Debridement (cm) - Depth 0.2 0.2 -Total Square (Post) (cm) 2 1.89 -Area of Debridement (cm) - Length 2 2.1 -Area of Debridement (cm) - Width 1 0.9 -Total Square (Area) (cm) 2 1.89 -Tunneling No No No -Undermining/Tunneling No No No -Circular Undermining No No No -Wound/Ulcer Outcome Not Healed Not Healed Not Healed -Ulcer Cleansing Rinsed/ Rinsed/ Rinsed/ Irrigated with Irrigated with Irrigated with Saline Saline Saline -Foul Odor after Cleansing No No No -Bioengineered Tissue Yes No No -Type of Bioengineered Tissue Epifix 18mm Disc -Expiration Date 07/21/29 -Product Lot Number [id number] -Percent Used 100 -Lot number of Saline Used [id number] -Bleeding Controlled with Pressure Pressure Pressure -Treatment Response Procedure Procedure Procedure Tolerated Well Tolerated Well Tolerated Well -Offloading No No No -Debridement - Subq, 1st 20sq cm No Yes Yes -Apply Skin Sub - 1st 25 sq cm - Feet 1 -Epifix 18mm Disc Application 1-4 3 Pain Scale: 0-10 Numeric Is Patient Pain Free? Yes Yes Yes WC - Nurse 3 - General Ulcer D/C NN Start: 12/28/24 10:56 Freq: Status: Active Protocol: Activity Type Activity Date Activity User E-sign Co-sign Detail Recorded Client Recorded Date Recorded By Document 12/28/24 11:24 GM [id number] 12/28/24 11:24 GM Document 01/04/25 11:54 ML [id number] 01/04/25 11:55 ML 12/28/24 01/04/25 11:24 11:54 Wound Care Center Nurse 3 #1 LT LAT FOOT -Ulcer Cleansing Not Cleansed -Foul Odor after Cleansing No -Primary Dressing Applied Optilok 5x5 1/2 -Other Dressing betadine wash -Primary Dressing Covered/Secured with Dry Gauze & Dry Gauze & Roll Gauze, Roll Gauze Secured with Tape -Optilok 5x5 1/2 1 Pain Scale: 0-10 Numeric Is Patient Pain Free? Yes Yes WC - Visit Discharge Discharge Condition Stable Ambulatory Status Ambulatory Transportation Private Auto Assessment/Plan Assessment/Plan (1) Non-pressure chronic ulcer of other part of left foot with fat layer exposed: CODE(S): L97.522 - Non-pressure chronic ulcer of other part of left foot with fat layer exposed PLAN: Patient was examined and evaluated. All findings were discussed with the patient. All questions were answered to the patient's satisfaction. Excisional debridement down to and including subcutaneous tissue of the left lateral foot full-thickness wound done with a number 3 mm dermal curette done without incident. Predebridement measurement was 2.0 x 0.8 x 0.1 cm. Postdebridement measurement 2.1 x 0.9 x 0.2 cm. The left foot wound was wiped clean and patted dry. Silver alginate 5 by dry sterile dressing compression wrap was donned. He will change daily. He will be following with Dr. Crabtree and vascular surgery next week for evaluation. Patient is admitting to some pain to the left foot will place patient on tramadol 3 times a day for 7 days. Patient will take antibiotics as prescribed make sure that he spaces out the dose as discussed in clinic today. Follow-up at the wound care center with Dr. Ennis in 1 week. (2) Other specified peripheral vascular diseases: CODE(S): I73.89 - Other specified peripheral vascular diseases
[2025-01-18 11:26] VITALS: BP 167/85; PULSE 83; RESP 17; TEMP 36.2
--- NOTE | 2025-01-18 12:52 | PCM.WC.PN ---
History of Present Illness Date of Service: 01/18/25 Chief Complaint: Full-thickness wound, left foot and ankle. History of Wound: Full-thickness wound to left foot and ankle secondary to venous insufficiency. Patient has extensive history of vascular intervention from Dr. Rock Progress of Wound: Stable full-thickness wound to lateral left foot with signs of maceration secondary to drainage. Subjective Subjective Patient is a 74-year-old male presenting to clinic today follow-up evaluation of full-thickness wound to lateral left foot. Patient has been compliant with dressing changes and changing daily. He is wearing his compression. He is taking the antibiotics as prescribed. He admits to some discomfort with the antibiotics but is doing well. He is requesting another refill on tramadol due to the pain to left lower extremity. He denies any trauma or drainage. Denies constitutional symptoms. No other pedal complaints at this time. Objective Data Objective Data Vital Signs: Vital Signs Temp Pulse Resp BP O2 Del Method 97.1 F L 83 17 167/85 H Room Air 01/18/25 11:26 01/18/25 11:26 01/18/25 11:26 01/18/25 11:26 01/18/25 11:26 Oxygen Delivery Method Room Air Lab / Micro Data Micro: Microbiology 01/04/25 11:45 Wound - Left Foot Gram Stain - Final 01/04/25 11:45 Wound - Left Foot Wound Culture - Final Citrobacter freundii Providencia rettgeri Staphylococcus epidermidis 01/04/25 11:45 Wound - Left Foot Anaerobic Culture - Final Anaerobic cocci Physical Exam Narrative Vascular: DP and PT pulses are biphasic on Doppler. CFT is brisk. Skin temperature gradient is warm to warm from proximal ankles to distal digit. Blanchable erythema. Neurological: Light touch is intact. Patient responds to painful stimuli. Dermatological: Evidence of full-thickness wound to the left lateral foot measuring 1.7 x 0.7 x 0.2 cm. Wound base is fibrogranular nature. Blanchable erythema without drainage. Excisional debridement down to and including subcutaneous tissue of the left lateral foot full-thickness wound done with a number 3 mm dermal curette done without incident. Predebridement measurement was 1.5 x 0.6 x 0.1 cm. Postdebridement measurement 1.7 x 0.7 x 0.2 cm. Muscle skeletal: Mild pain on palpation to both full-thickness wounds to the left lower extremity. No pain with calf pressure. Debridement Note Debridement Note Debridement Free Text: Excisional debridement down to and including subcutaneous tissue of the left lateral foot full-thickness wound done with a number 3 mm dermal curette done without incident. Predebridement measurement was 1.5 x 0.6 x 0.1 cm. Postdebridement measurement 1.7 x 0.7 x 0.2 cm. Post-Debridement Measurements and Additional Note: Post-Debridement Measurements/Treatment - Nurse 1 - General Ulcer Assessment Start: 12/28/24 10:56 Freq: Status: Active Protocol: [employer] Activity Type Activity Date Activity User E-sign Co-sign Detail Recorded Client Recorded Date Recorded By Document 12/28/24 10:57 GM [id number] 12/28/24 11:01 GM Document 01/04/25 11:26 GM [id number] 01/04/25 11:37 GM Document 01/11/25 09:18 RB [id number] 01/11/25 09:23 RB Document 01/18/25 11:26 TS [id number] 01/18/25 11:34 TS 12/28/24 01/04/25 01/11/25 10:57 11:26 09:18 - Today's Visit Information Type of service Follow-up Visit Follow-up Visit Follow-up Visit (Physician/DISTRICT OR DISTRICT OFFICE DIRECTOR (Physician/DISTRICT OR DISTRICT OFFICE DIRECTOR (Physician/DISTRICT OR DISTRICT OFFICE DIRECTOR ) ) ) Arrival Mode Ambulatory Ambulatory Ambulatory Transfer Assistance None None Accompanied by Patient Identification Verified (Name & Yes Yes Yes ) Patient Requires Transmission-Based No Precautions Safety Precautions Vital Signs Temperature (97.8 F-99.1 F) 97.6 F L 98.0 F 96.9 F L Temperature Source Temporal Temporal Temporal Pulse Rate (60-100) 83 73 84 Pulse Location Monitor Monitor Monitor Respiratory Rate (12-18) 16 18 18 Respiratory rate source Observation Observation Observation Oxygen Delivery Method Room Air Room Air Blood Pressure (90/60-120/80) 134/91 H 174/84 H 176/110 H Blood Pressure Mean (mm Hg) 105 114 132 Source Monitor Monitor Monitor Position Sitting Sitting Sitting Blood Pressure Location Right Arm Left Arm Left Arm History Since Last Visit- (Skip if this is Patient's initial visit) Have you changed medications since your No No No last visit? Any new allergies or adverse reactions No No No Had a fall/change in ADL's that may No No No increase risk of falls Signs or symptoms of abuse and/or No No No neglect since last visit Have you been in the hospital since your No No No last visit? Has dressing in place as prescribed Yes Yes Yes Has compression in place as prescribed Yes Yes Yes Has offloadiing in place as prescribed N/A N/A N/A Experienced any changes in pain level or No No No management Left Footwear Regular Shoe Right Footwear Regular Shoe Pain Scale: 0-10 Numeric Is Patient Pain Free? Yes Yes Yes LLE -Description Aching -Duration (hours) Acute -Pain Behavior Guarding -Pain Aggravating Factors Exercise/ Activity -Alleviating Factors/Interventions Medication -Effectiveness of Alleviating Factor/ Minimally Intervention effective 01/18/25 11:26 WC - Today's Visit Information Type of service Follow-up Visit (Physician/DISTRICT OR DISTRICT OFFICE DIRECTOR ) Arrival Mode Ambulatory, Wheelchair Transfer Assistance Accompanied by Patient Identification Verified (Name & Yes ) Patient Requires Transmission-Based No Precautions Safety Precautions Fall Prevention Vital Signs Temperature (97.8 F-99.1 F) 97.1 F L Temperature Source Temporal Pulse Rate (60-100) 83 Pulse Location Monitor Respiratory Rate (12-18) 17 Respiratory rate source Observation Oxygen Delivery Method Room Air Blood Pressure (90/60-120/80) 167/85 H Blood Pressure Mean (mm Hg) 112 Source Monitor Position Sitting Blood Pressure Location Left Arm History Since Last Visit- (Skip if this is Patient's initial visit) Have you changed medications since your No last visit? Any new allergies or adverse reactions No Had a fall/change in ADL's that may No increase risk of falls Signs or symptoms of abuse and/or No neglect since last visit Have you been in the hospital since your No last visit? Has dressing in place as prescribed Yes Has compression in place as prescribed Yes Has offloadiing in place as prescribed N/A Experienced any changes in pain level or No management Left Footwear Regular Shoe Right Footwear Regular Shoe Pain Scale: 0-10 Numeric Is Patient Pain Free? Yes LLE -Description -Duration (hours) -Pain Behavior -Pain Aggravating Factors -Alleviating Factors/Interventions -Effectiveness of Alleviating Factor/ Intervention WC - Nurse 1 - General Ulcer Measurement Start: 12/28/24 10:56 Freq: Status: Active Protocol: Activity Type Activity Date Activity User E-sign Co-sign Detail Recorded Client Recorded Date Recorded By Document 12/28/24 10:57 GM [id number] 12/28/24 11:01 GM Document 01/04/25 11:26 GM [id number] 01/04/25 11:37 GM Document 01/11/25 09:18 RB [id number] 01/11/25 09:23 RB Document 01/18/25 11:26 TS [id number] 01/18/25 11:34 TS 12/28/24 01/04/25 01/11/25 10:57 11:26 09:18 Wound Center Nurse 1 2-LEFT LATERAL LEG -Current Size (cm) - Length 0.6 -Current Size (cm) - Width 0.4 -Current Size (cm) - Depth 0.1 -Total Square Cm 0.24 -Photo Taken No -Epithelialization Small 1-33% -Tunneling No -Undermining/Tunneling No -Circular Undermining No -Exudate Amt None Present -Wound Margin Distinct, Outline Attached -Granulation Amt None Present (0 %) -Texture (Glenda-wound Skin Appearance) Assessed -Moisture (Glenda-wound Skin Appearance) Assessed -Color (Glenda-wound Skin Appearance) Assessed -Temperature (Glenda-wound Skin No Abnormality Appearance) (Pt Warm) -Tenderness on Palpation (Glenda-wound No Skin Appearance) -Ulcer Cleansing Soap and Water -Foul Odor after Cleansing No -Anesthetic Used 5% Lidocaine Gel -Wound Comment(s) scabbed over #1 LT LAT FOOT -Combined with other wound No -Current Size (cm) - Length 0.7 0.1 2.2 -Current Size (cm) - Width 1.5 0.1 1.4 -Current Size (cm) - Depth 0.1 0.1 0.2 -Total Square Cm 1.05 0.01 3.08 -Photo Taken No No Yes -Epithelialization None Present None Present -Tunneling No No No -Undermining/Tunneling No No No -Circular Undermining No No No -Exudate Amt Medium Large Medium -Exudate Type Yellow/Green Yellow/Green Serosanguineous -Wound Margin Distinct, Distinct, Thickened & Outline Outline Rolled Under Attached Attached -Granulation Amt Small (1-33%) Small (1-33%) Medium (34-66%) -Granulation Quality Lone Elm Lone Elm Lone Elm -Slough/Fibrin Yes Yes Yes -Necrosis Amt Medium (34-66%) Small (1-33%) Medium (34-66%) -Necrotic Tissue Type Adherent Slough Adherent Slough Adherent Slough -Structure Exposed N/A -Texture (Glenda-wound Skin Appearance) Assessed Assessed Assessed -Moisture (Glenda-wound Skin Appearance) Assessed Assessed Dry/Scaly -Color (Glenda-wound Skin Appearance) Assessed Assessed Assessed -Temperature (Glenda-wound Skin No Abnormality No Abnormality No Abnormality Appearance) (Pt Warm) (Pt Warm) (Pt Warm) -Tenderness on Palpation (Glenda-wound No No No Skin Appearance) -Ulcer Cleansing Soap and Water Soap and Water Wound Cleanser -Foul Odor after Cleansing No No No -Anesthetic Used 5% Lidocaine 5% Lidocaine 5% Lidocaine Gel Gel Gel Lower Limb Edema Present Yes Left Calf (cm) 38.5 Point of measurement (cm from the medial instep) Left Ankle (cm) 24 Point of Measurement (cm from the medial instep) 01/18/25 11:26 Wound Center Nurse 1 2-LEFT LATERAL LEG -Current Size (cm) - Length -Current Size (cm) - Width -Current Size (cm) - Depth -Total Square Cm -Photo Taken -Epithelialization -Tunneling -Undermining/Tunneling -Circular Undermining -Exudate Amt -Wound Margin -Granulation Amt -Texture (Glenda-wound Skin Appearance) -Moisture (Glenda-wound Skin Appearance) -Color (Glenda-wound Skin Appearance) -Temperature (Glenda-wound Skin Appearance) -Tenderness on Palpation (Glenda-wound Skin Appearance) -Ulcer Cleansing -Foul Odor after Cleansing -Anesthetic Used -Wound Comment(s) #1 LT LAT FOOT -Combined with other wound No -Current Size (cm) - Length 1.5 -Current Size (cm) - Width 1 -Current Size (cm) - Depth 0.2 -Total Square Cm 1.5 -Photo Taken Yes -Epithelialization Medium 34-66% -Tunneling No -Undermining/Tunneling No -Circular Undermining No -Exudate Amt Small -Exudate Type Serous -Wound Margin Distinct, Outline Attached -Granulation Amt Medium (34-66%) -Granulation Quality [place]m -Slough/Fibrin Yes -Necrosis Amt None Present (0 %) -Necrotic Tissue Type Adherent Slough -Structure Exposed None/Limited to Skin Breakdown -Texture (Glenda-wound Skin Appearance) Assessed -Moisture (Glenda-wound Skin Appearance) Assessed,Dry/ Scaly -Color (Glenda-wound Skin Appearance) Assessed -Temperature (Glenda-wound Skin No Abnormality Appearance) (Pt Warm) -Tenderness on Palpation (Glenda-wound Yes Skin Appearance) -Ulcer Cleansing Soap and Water -Foul Odor after Cleansing No -Anesthetic Used 5% Lidocaine Gel Lower Limb Edema Present Left Calf (cm) Point of measurement (cm from the medial 40.9 instep) Left Ankle (cm) Point of Measurement (cm from the medial 24 instep) WC - Nurse 2 - General Ulcer CM Notes Start: 12/28/24 10:56 Freq: Status: Active Protocol: Activity Type Activity Date Activity User E-sign Co-sign Detail Recorded Client Recorded Date Recorded By Document 12/28/24 11:16 [id number] 12/28/24 11:17 Document 01/04/25 11:42 [id number] 01/04/25 11:47 Document 01/11/25 09:50 [id number] 01/11/25 09:52 Document 01/18/25 11:44 [id number] 01/18/25 11:45 12/28/24 01/04/25 01/11/25 11:16 11:42 09:50 Wound Center Nurse 2 2-LEFT LATERAL LEG -Correct Patient Yes -Correct Side, Site, Position No -Correct Procedure No -Procedure Performed No -Post Debridement (cm) - Length 0 -Post Debridement (cm) - Width 0 -Post Debridement (cm) - Depth 0 -Total Square (Post) (cm) 0 -Area of Debridement (cm) - Length 0 -Area of Debridement (cm) - Width 0 -Total Square (Area) (cm) 0 -Wound/Ulcer Outcome Healed- Epithelialized #1 LT LAT FOOT -Time 11:16 11:42 09:50 -Correct Patient Yes Yes Yes -Correct Side, Site, Position Yes Yes Yes -Correct Procedure Yes Yes Yes -Procedure Performed Yes Yes Yes -Type of Procedure Debridement Debridement Debridement -Clinical Debridement Subcutaneous Subcutaneous Subcutaneous -Tissue Removed Subcutaneous Subcutaneous Subcutaneous -Post Debridement (cm) - Length 2 2.1 -Post Debridement (cm) - Width 1 0.9 -Post Debridement (cm) - Depth 0.2 0.2 -Total Square (Post) (cm) 2 1.89 -Area of Debridement (cm) - Length 2 2.1 -Area of Debridement (cm) - Width 1 0.9 -Total Square (Area) (cm) 2 1.89 -Tunneling No No No -Undermining/Tunneling No No No -Circular Undermining No No No -Wound/Ulcer Outcome Not Healed Not Healed Not Healed -Ulcer Cleansing Rinsed/ Rinsed/ Rinsed/ Irrigated with Irrigated with Irrigated with Saline Saline Saline -Foul Odor after Cleansing No No No -Bioengineered Tissue Yes No No -Type of Bioengineered Tissue Epifix 18mm Disc -Expiration Date 07/21/29 -Product Lot Number [id number] -Percent Used 100 -Lot number of Saline Used [id number] -Bleeding Controlled with Pressure Pressure Pressure -Treatment Response Procedure Procedure Procedure Tolerated Well Tolerated Well Tolerated Well -Offloading No No No -Debridement - Subq, 1st 20sq cm No Yes Yes -Apply Skin Sub - 1st 25 sq cm - Feet 1 -Epifix 18mm Disc Application 1-4 3 Pain Scale: 0-10 Numeric Is Patient Pain Free? Yes Yes Yes 01/18/25 11:44 Wound Center Nurse 2 2-LEFT LATERAL LEG -Correct Patient -Correct Side, Site, Position -Correct Procedure -Procedure Performed -Post Debridement (cm) - Length -Post Debridement (cm) - Width -Post Debridement (cm) - Depth -Total Square (Post) (cm) -Area of Debridement (cm) - Length -Area of Debridement (cm) - Width -Total Square (Area) (cm) -Wound/Ulcer Outcome #1 LT LAT FOOT -Time 11:44 -Correct Patient Yes -Correct Side, Site, Position Yes -Correct Procedure Yes -Procedure Performed Yes -Type of Procedure Debridement -Clinical Debridement Subcutaneous -Tissue Removed Subcutaneous -Post Debridement (cm) - Length 1.7 -Post Debridement (cm) - Width 0.7 -Post Debridement (cm) - Depth 0.2 -Total Square (Post) (cm) 1.19 -Area of Debridement (cm) - Length 1.7 -Area of Debridement (cm) - Width 0.7 -Total Square (Area) (cm) 1.19 -Tunneling No -Undermining/Tunneling No -Circular Undermining No -Wound/Ulcer Outcome Not Healed -Ulcer Cleansing Rinsed/ Irrigated with Saline -Foul Odor after Cleansing No -Bioengineered Tissue No -Type of Bioengineered Tissue -Expiration Date -Product Lot Number -Percent Used -Lot number of Saline Used -Bleeding Controlled with Pressure -Treatment Response Procedure Tolerated Well -Offloading No -Debridement - Subq, 1st 20sq cm Yes -Apply Skin Sub - 1st 25 sq cm - Feet -Epifix 18mm Disc Application 1-4 Pain Scale: 0-10 Numeric Is Patient Pain Free? Yes - Nurse 3 - General Ulcer D/C NN Start: 12/28/24 10:56 Freq: Status: Active Protocol: Activity Type Activity Date Activity User E-sign Co-sign Detail Recorded Client Recorded Date Recorded By Document 12/28/24 11:24 GM [id number] 12/28/24 11:24 GM Document 01/04/25 11:54 ML [id number] 01/04/25 11:55 ML Document 01/18/25 11:49 TS [id number] 01/18/25 11:53 TS 12/28/24 01/04/25 01/18/25 11:24 11:54 11:49 Wound Care Center Nurse 3 #1 LT LAT FOOT -Ulcer Cleansing Not Cleansed Rinsed/ Irrigated with Saline -Foul Odor after Cleansing No -Primary Dressing Applied Optilok 5x5 1/2 Aquacel AG 4x4 -Other Dressing betadine wash -Primary Dressing Covered/Secured with Dry Gauze & Dry Gauze & Dry Gauze,Dry Roll Gauze, Roll Gauze Gauze & Roll Secured with Gauze,Secured Tape with Tape -Aquacel AG 4x4 1 -Optilok 5x5 1/2 1 Pain Scale: 0-10 Numeric Is Patient Pain Free? Yes Yes Yes - Visit Discharge Discharge Condition Stable Stable Ambulatory Status Ambulatory Ambulatory Transportation Private Auto Private Auto Accompanied by Medication Reconcilliation completed & No provided to patient/care provider Clinical Summary of Care Provided Yes Assessment/Plan Assessment/Plan (1) Non-pressure chronic ulcer of other part of left foot with fat layer exposed: CODE(S): L97.522 - Non-pressure chronic ulcer of other part of left foot with fat layer exposed PLAN: Patient was examined and evaluated. All findings were discussed with the patient. All questions were answered to the patient's satisfaction. Excisional debridement down to and including subcutaneous tissue of the left lateral foot full-thickness wound done with a number 3 mm dermal curette done without incident. Predebridement measurement was 1.5 x 0.6 x 0.1 cm. Postdebridement measurement 1.7 x 0.7 x 0.2 cm. The left foot wound was wiped clean and patted dry. Silver alginate, dry sterile dressing compression sock was donned. He will change daily. Patient will be having vascular studies today. Will discuss at next follow-up. Patient will continue his antibiotics as prescribed. Patient will be given another prescription for tramadol. If he is requesting more medication during the next visit we will recommend pain management. Follow-up at the wound care center with Dr. Ennis in 1 week. (2) Other specified peripheral vascular diseases: CODE(S): I73.89 - Other specified peripheral vascular diseases
--- NOTE | 2025-01-19 11:32 | WC ---
PHOTO-LEFT LATERAL FOOT 01/18/25
== END 2025-01-20 23:59 | disposition home or self-care (01) ==
LOC: WC 11:30
PROVIDERS: PCP Family Medicine; Referring Provider Family Medicine; Visit Provider Podiatrist Foot & Ankle Surgery
DX: L97.522 Non-pressure chronic ulcer of other part of left foot with fat layer exposed (principal); I73.89 Other specified peripheral vascular diseases
CPT/HCPCS: 11042; 15275; 87070; 87075; 87077; 87186; 87205; Q4186

== ENCOUNTER → 2025-01-18 | Outpatient (CLI) | payer MEDICARE, SELFPAY ==
--- NOTE | 2025-01-18 13:16 | ART_ITS ---
Reason For Study VL/Lower Ext Art Exam w/o Exercis
--- NOTE | 2025-01-18 13:16 | VDLE_ITS ---
Reason For Study VL/Venous Duplex US, Unilateral
== END | disposition home or self-care (01) ==
LOC: CVS 13:15
PROVIDERS: PCP Family Medicine; Referring Provider Surgery Trauma Surgery; Visit Provider Surgery Trauma Surgery
DX: I87.2 Venous insufficiency (chronic) (peripheral) (principal); L97.322 Non-pressure chronic ulcer of left ankle with fat layer exposed; M79.89 Other specified soft tissue disorders; M79.605 Pain in left leg
CPT/HCPCS: 93923; 93971

== ENCOUNTER 2025-02-08 11:00 | Outpatient (RCR) | payer MEDICARE, SELFPAY ==
[2025-01-25 11:03] VITALS: BP 183/91; PULSE 74; RESP 16; TEMP 36.3
--- NOTE | 2025-01-25 13:46 | PN.PCM_ITS ---
History of Present Illness Date of Service: 01/25/25 Chief Complaint: Full-thickness wound, left foot and ankle. History of Wound: Full-thickness wound to left foot and ankle secondary to venous insufficiency. Patient has extensive history of vascular intervention from Dr. Rock Progress of Wound: Improved full-thickness wound to the lateral left foot. Subjective Subjective Patient is a 74-year-old male presented clinic today for follow-up evaluation of full-thickness wound to lateral left foot. Patient has completed all antibiotics and admits to 0 drainage or pain to the left lower extremity. He is resting and elevating as discussed. He would like to stop all skin graft substitute as he believes they are causing infections to his foot. He will be following up with his vascular surgeon Dr. Rock regarding the vascular results that were obtained. He denies trauma. Denies constitutional symptoms. No other pedal plaints at this time. Objective Data Objective Data Vital Signs: Vital Signs Temp Pulse Resp BP 97.4 F L 74 16 183/91 H 01/25/25 11:03 01/25/25 11:03 01/25/25 11:03 01/25/25 11:03 Lab / Micro Data Micro: Microbiology 01/04/25 11:45 Wound - Left Foot Gram Stain - Final 01/04/25 11:45 Wound - Left Foot Wound Culture - Final Citrobacter freundii Providencia rettgeri Staphylococcus epidermidis 01/04/25 11:45 Wound - Left Foot Anaerobic Culture - Final Anaerobic cocci Physical Exam Narrative Vascular: DP and PT pulses are biphasic on Doppler. CFT is brisk. Skin temperature gradient is warm to warm from proximal ankles to distal digit. No erythema. Neurological: Light touch is intact. Patient responds to painful stimuli. Dermatological: Evidence of full-thickness wound to the left lateral foot measuring 1.8 x 0.8 x 0.2 cm. Wound base is fibrogranular nature. No erythema. No drainage. Excisional debridement down to and including subcutaneous tissue of the left lateral foot full-thickness wound done with a number 3 mm dermal curette done without incident. Predebridement measurement was 1.6 x 0.7 x 0.1 cm. Postdebridement measurement 1.8 x 0.8 x 0.2 cm. Muscle skeletal: No pain on palpation to the full-thickness wounds to the left lower extremity. No pain with calf pressure. Debridement Note Debridement Note Debridement Free Text: Excisional debridement down to and including subcutaneous tissue of the left lateral foot full-thickness wound done with a number 3 mm dermal curette done without incident. Predebridement measurement was 1.6 x 0.7 x 0.1 cm. Postdebridement measurement 1.8 x 0.8 x 0.2 cm. Post-Debridement Measurements and Additional Note: Post-Debridement Measurements/Treatment - Nurse 1 - General Ulcer Assessment Start: 01/25/25 10:56 Freq: Status: Active Protocol: ENDER Activity Type Activity Date Activity User E-sign Co-sign Detail Recorded Client Recorded Date Recorded By Document 01/25/25 11:03 KATIA [id number] 01/25/25 11:03 01/25/25 11:03 - Today's Visit Information Type of service Follow-up Visit (Physician/TEST CENTER ADMINISTRATOR ) Arrival Mode Ambulatory Vital Signs Temperature (97.8 F-99.1 F) 97.4 F L Temperature Source Temporal Pulse Rate (60-100) 74 Pulse Location Monitor Respiratory Rate (12-18) 16 Respiratory rate source Observation Blood Pressure (90/60-120/80) 183/91 H Blood Pressure Mean (mm Hg) 121 Source Monitor Position Sitting Blood Pressure Location Right Arm History Since Last Visit- (Skip if this is Patient's initial visit) Have you changed medications since your No last visit? Any new allergies or adverse reactions No Had a fall/change in ADL's that may No increase risk of falls Signs or symptoms of abuse and/or No neglect since last visit Have you been in the hospital since your No last visit? Has dressing in place as prescribed Yes Has compression in place as prescribed N/A Has offloadiing in place as prescribed N/A Experienced any changes in pain level or No management Pain Scale: 0-10 Numeric Is Patient Pain Free? Yes - Nurse 1 - General Ulcer Measurement Start: 01/25/25 10:56 Freq: Status: Active Protocol: Activity Type Activity Date Activity User E-sign Co-sign Detail Recorded Client Recorded Date Recorded By Document 01/25/25 10:58 CP [id number] 01/25/25 11:03 01/25/25 10:58 Wound Center Nurse 1 #1 LT LAT FOOT -Current Size (cm) - Length 1 -Current Size (cm) - Width 0.4 -Current Size (cm) - Depth 0.2 -Total Square Cm 0.4 -Date of Last Picture (Recall this 01/25/25 field) -Epithelialization Small 1-33% -Exudate Amt Small -Exudate Type Serosanguineous -Wound Margin Flat & Intact -Granulation Amt Large (67-100%) -Granulation Quality [place] -Slough/Fibrin No -Structure Exposed N/A -Texture (Glenda-wound Skin Appearance) No Abnormality -Moisture (Glenda-wound Skin Appearance) No Abnormality -Color (Glenda-wound Skin Appearance) No Abnormality -Temperature (Glenda-wound Skin No Abnormality Appearance) (Pt Warm) -Tenderness on Palpation (Glenda-wound No Skin Appearance) -Ulcer Cleansing Rinsed/ Irrigated with Saline -Foul Odor after Cleansing No -Anesthetic Used 5% Lidocaine Gel WC - Nurse 2 - General Ulcer CM Notes Start: 01/25/25 10:56 Freq: Status: Active Protocol: Activity Type Activity Date Activity User E-sign Co-sign Detail Recorded Client Recorded Date Recorded By Document 01/25/25 11:30 [id number] 01/25/25 11:31 01/25/25 11:30 Wound Center Nurse 2 -Time 11:30 -Correct Patient Yes -Correct Side, Site, Position Yes -Correct Procedure Yes -Procedure Performed Yes -Type of Procedure Debridement -Clinical Debridement Subcutaneous -Tissue Removed Subcutaneous -Tunneling No -Circular Undermining No -Wound/Ulcer Outcome Not Healed -Ulcer Cleansing Rinsed/ Irrigated with Saline -Foul Odor after Cleansing No -Bioengineered Tissue No -Bleeding Controlled with Pressure -Treatment Response Procedure Tolerated Well -Offloading No -Debridement - Subq, 1st 20sq cm Yes Pain Scale: 0-10 Numeric Is Patient Pain Free? Yes WC - Nurse 3 - General Ulcer D/C NN Start: 01/25/25 10:56 Freq: Status: Active Protocol: Activity Type Activity Date Activity User E-sign Co-sign Detail Recorded Client Recorded Date Recorded By Document 01/25/25 11:12 CP [id number] 01/25/25 11:17 CP Edit Result 01/25/25 11:12 CP (1) [id number] 01/25/25 11:19 CP Document 01/25/25 11:49 CP [id number] 01/25/25 11:50 CP (1) #1 LT LAT FOOT - Ulcer Cleansing Rinsed/Irrigated => with Saline => - Foul Odor after Cleansing No => - Other Dressing foam => - Primary Dressing Covered/Secured with Dry Gauze & Roll => Gauze => LLE - Compression Wrap Jose Wrap => Discharge Condition Stable => Clinical Summary of Care Provided Yes => 01/25/25 01/25/25 11:12 11:49 Wound Care Center Nurse 3 #1 LT LAT FOOT -Ulcer Cleansing Rinsed/ Irrigated with Saline -Foul Odor after Cleansing No -Other Dressing FOAM -Primary Dressing Covered/Secured with Dry Gauze & Roll Gauze, Secured with Tape Pain Scale: 0-10 Numeric Is Patient Pain Free? Yes Yes Assessment/Plan Assessment/Plan (1) Non-pressure chronic ulcer of other part of left foot with fat layer exposed: CODE(S): L97.522 - Non-pressure chronic ulcer of other part of left foot with fat layer exposed PLAN: Patient was examined and evaluated. All findings were discussed with the patient. All questions were answered to the patient's satisfaction. 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 I did discuss with the patient today to follow-up with Dr. Crabtree regarding intervention and or treatment. Patient will be following up with his previous vascular surgeon Dr. Rock. Copy of the patient's results were dispensed to the patient and he will call the office of Dr. Rock for follow-up appointment. Excisional debridement down to and including subcutaneous tissue of the left lateral foot full-thickness wound done with a number 3 mm dermal curette done without incident. Predebridement measurement was 1.6 x 0.7 x 0.1 cm. Postdebridement measurement 1.8 x 0.8 x 0.2 cm. Left lower extremities were cleaned and patted dry. AMD pad followed by dry sterile dressing and compression wrap was donned to left lower extremity. Patient will change daily. Follow-up at the wound care center with Dr. Ennis in 1 week. (2) Other specified peripheral vascular diseases: CODE(S): I73.89 - Other specified peripheral vascular diseases
--- NOTE | 2025-01-26 12:16 | WC ---
PHOTO-RIGHT LATERAL FOOT 01/25/25
[2025-02-08 12:10] VITALS: BP 173/77; PULSE 66; RESP 18; TEMP 36.8
--- NOTE | 2025-02-08 15:43 | PCM.WC.PN ---
History of Present Illness Date of Service: 02/08/25 Chief Complaint: Full-thickness wound, left foot and ankle. History of Wound: Full-thickness wound to left foot and ankle secondary to venous insufficiency. Patient has extensive history of vascular intervention from Dr. Rock Progress of Wound: Improved full-thickness wound to the lateral left foot. Subjective Subjective Patient is a 74-year-old male presenting to wound care center today follow-up evaluation of full-thickness wound to the left foot. Patient missed his last appointment due to family. He is doing great daily dressing changes admits to improvement. He will be following up with Dr. Rock on 03/01 for evaluation of the left lower extremity. Denies trauma. Denies constitutional symptoms. No other pedal complaints at this time. Objective Data Objective Data Vital Signs: Vital Signs Temp Pulse Resp BP O2 Del Method 98.3 F 66 18 173/77 H Room Air 02/08/25 12:10 02/08/25 12:10 02/08/25 12:10 02/08/25 12:10 02/08/25 12:10 Oxygen Delivery Method Room Air Lab / Micro Data Micro: Microbiology 01/04/25 11:45 Wound - Left Foot Gram Stain - Final 01/04/25 11:45 Wound - Left Foot Wound Culture - Final Citrobacter freundii Providencia rettgeri Staphylococcus epidermidis 01/04/25 11:45 Wound - Left Foot Anaerobic Culture - Final Anaerobic cocci Physical Exam Narrative Vascular: DP and PT pulses are biphasic on Doppler. CFT is brisk. Skin temperature gradient is warm to warm from proximal ankles to distal digit. No erythema. Neurological: Light touch is intact. Patient responds to painful stimuli. Dermatological: Evidence of full-thickness wound to the left lateral foot measuring 1.8 x 0.7 x 0.2 cm. Wound base is fibrogranular nature. No erythema. No drainage. Excisional debridement down to and including subcutaneous tissue of the left lateral foot full-thickness wound done with a number 3 mm dermal curette done without incident. Predebridement measurement was 1.7 x 0.6 x 0.1 cm. Postdebridement measurement 1.8 x 0.7 x 0.2 cm. Muscle skeletal: No pain on palpation to the full-thickness wounds to the left lower extremity. No pain with calf pressure. Debridement Note Debridement Note Debridement Free Text: Excisional debridement down to and including subcutaneous tissue of the left lateral foot full-thickness wound done with a number 3 mm dermal curette done without incident. Predebridement measurement was 1.7 x 0.6 x 0.1 cm. Postdebridement measurement 1.8 x 0.7 x 0.2 cm. Post-Debridement Measurements and Additional Note: Post-Debridement Measurements/Treatment LETY - Nurse 1 - General Ulcer Assessment Start: 01/25/25 10:56 Freq: Status: Active Protocol: ENDER Activity Type Activity Date Activity User E-sign Co-sign Detail Recorded Client Recorded Date Recorded By Document 01/25/25 11:03 [id number] 01/25/25 11:03 CP Document 02/08/25 12:10 [id number] 02/08/25 12:12 01/25/25 02/08/25 11:03 12:10 LETY - Today's Visit Information Type of service Follow-up Visit Follow-up Visit (Physician/MOLDER CLOSED MOLDS (Physician/MOLDER CLOSED MOLDS ) ) Arrival Mode Ambulatory Ambulatory Patient Identification Verified (Name & Yes ) Vital Signs Temperature (97.8 F-99.1 F) 97.4 F L 98.3 F Temperature Source Temporal Temporal Pulse Rate (60-100) 74 66 Pulse Location Monitor Monitor Respiratory Rate (12-18) 16 18 Respiratory rate source Observation Ausculation Oxygen Delivery Method Room Air Blood Pressure (90/60-120/80) 183/91 H 173/77 H Blood Pressure Mean (mm Hg) 121 109 Source Monitor Monitor Position Sitting Sitting Blood Pressure Location Right Arm Right Arm History Since Last Visit- (Skip if this is Patient's initial visit) Have you changed medications since your No No last visit? Any new allergies or adverse reactions No No Had a fall/change in ADL's that may No No increase risk of falls Signs or symptoms of abuse and/or No No neglect since last visit Have you been in the hospital since your No No last visit? Has dressing in place as prescribed Yes Yes Has compression in place as prescribed N/A N/A Has offloadiing in place as prescribed N/A N/A Experienced any changes in pain level or No Yes management Left Footwear Regular Shoe Right Footwear Regular Shoe Pain Scale: 0-10 Numeric Is Patient Pain Free? Yes Yes - Nurse 1 - General Ulcer Measurement Start: 01/25/25 10:56 Freq: Status: Active Protocol: Activity Type Activity Date Activity User E-sign Co-sign Detail Recorded Client Recorded Date Recorded By Document 01/25/25 10:58 CP [id number] 01/25/25 11:03 CP Document 02/08/25 12:10 [id number] 02/08/25 12:12 01/25/25 02/08/25 10:58 12:10 Wound Center Nurse 1 #1 LT LAT FOOT -Current Size (cm) - Length 1 1.0 -Current Size (cm) - Width 0.4 1.2 -Current Size (cm) - Depth 0.2 0.2 -Total Square Cm 0.4 1.20 -Date of Last Picture (Recall this 01/25/25 field) -Photo Taken No -Epithelialization Small 1-33% Small 1-33% -Tunneling No -Undermining/Tunneling No -Circular Undermining No -Exudate Amt Small -Exudate Type Serosanguineous -Wound Margin Flat & Intact Distinct, Outline Attached -Granulation Amt Large (67-100%) Small (1-33%) -Granulation Quality [place] -Slough/Fibrin No Yes -Necrosis Amt Medium (34-66%) -Necrotic Tissue Type Adherent Slough -Structure Exposed N/A -Texture (Glenda-wound Skin Appearance) No Abnormality Assessed -Moisture (Glenda-wound Skin Appearance) No Abnormality Assessed,Dry/ Scaly -Color (Glenda-wound Skin Appearance) No Abnormality Assessed -Temperature (Glenda-wound Skin No Abnormality No Abnormality Appearance) (Pt Warm) (Pt Warm) -Tenderness on Palpation (Glenda-wound No No Skin Appearance) -Ulcer Cleansing Rinsed/ Rinsed/ Irrigated with Irrigated with Saline Saline -Foul Odor after Cleansing No No -Anesthetic Used 5% Lidocaine 5% Lidocaine Gel Gel WC - Nurse 2 - General Ulcer CM Notes Start: 01/25/25 10:56 Freq: Status: Active Protocol: Activity Type Activity Date Activity User E-sign Co-sign Detail Recorded Client Recorded Date Recorded By Document 01/25/25 11:30 [id number] 01/25/25 11:31 Document 02/08/25 12:16 [id number] 02/08/25 12:17 01/25/25 02/08/25 11:30 12:16 Wound Center Nurse 2 #1 LT LAT FOOT -Time 11:30 12:16 -Correct Patient Yes Yes -Correct Side, Site, Position Yes Yes -Correct Procedure Yes Yes -Procedure Performed Yes Yes -Type of Procedure Debridement Debridement -Clinical Debridement Subcutaneous Subcutaneous -Tissue Removed Subcutaneous Subcutaneous -Post Debridement (cm) - Length 1.8 -Post Debridement (cm) - Width 0.7 -Post Debridement (cm) - Depth 0.2 -Total Square (Post) (cm) 1.26 -Area of Debridement (cm) - Length 1.8 -Area of Debridement (cm) - Width 0.7 -Total Square (Area) (cm) 1.26 -Tunneling No -Undermining/Tunneling No -Circular Undermining No No -Wound/Ulcer Outcome Not Healed Not Healed -Ulcer Cleansing Rinsed/ Rinsed/ Irrigated with Irrigated with Saline Saline -Foul Odor after Cleansing No No -Bioengineered Tissue No No -Bleeding Controlled with Pressure Pressure -Treatment Response Procedure Procedure Tolerated Well Tolerated Well -Offloading No No -Debridement - Subq, 1st 20sq cm Yes Yes Pain Scale: 0-10 Numeric Is Patient Pain Free? Yes Yes - Nurse 3 - General Ulcer D/C NN Start: 01/25/25 10:56 Freq: Status: Active Protocol: Activity Type Activity Date Activity User E-sign Co-sign Detail Recorded Client Recorded Date Recorded By Document 01/25/25 11:12 CP [id number] 01/25/25 11:17 CP Edit Result 01/25/25 11:12 CP (1) [id number] 01/25/25 11:19 CP Document 01/25/25 11:49 CP [id number] 01/25/25 11:50 CP Document 02/08/25 12:17 JF [id number] 02/08/25 12:17 JF (1) #1 LT LAT FOOT - Ulcer Cleansing Rinsed/Irrigated => with Saline => - Foul Odor after Cleansing No => - Other Dressing foam => - Primary Dressing Covered/Secured with Dry Gauze & Roll => Gauze => LLE - Compression Wrap Jose Wrap => Discharge Condition Stable => Clinical Summary of Care Provided Yes => 01/25/25 01/25/25 02/08/25 11:12 11:49 12:17 Wound Care Center Nurse 3 #1 LT LAT FOOT -Ulcer Cleansing Rinsed/ Irrigated with Saline -Foul Odor after Cleansing No No -Primary Dressing Applied Aquacel AG 4x4 -Other Dressing FOAM -Primary Dressing Covered/Secured with Dry Gauze & Dry Gauze & Roll Gauze, Roll Gauze, Secured with Secured with Tape Tape -Aquacel AG 4x4 1 Pain Scale: 0-10 Numeric Is Patient Pain Free? Yes Yes Yes WC - Visit Discharge Discharge Condition Stable Ambulatory Status Ambulatory Transportation Private Auto Medication Reconcilliation completed & Yes provided to patient/care provider Clinical Summary of Care Provided Yes Assessment/Plan Assessment/Plan (1) Non-pressure chronic ulcer of other part of left foot with fat layer exposed: CODE(S): L97.522 - Non-pressure chronic ulcer of other part of left foot with fat layer exposed PLAN: Patient was examined and evaluated. All findings were discussed with the patient. All questions were answered to the patient's satisfaction. Excisional debridement down to and including subcutaneous tissue of the left lateral foot full-thickness wound done with a number 3 mm dermal curette done without incident. Predebridement measurement was 1.7 x 0.6 x 0.1 cm. Postdebridement measurement 1.8 x 0.7 x 0.2 cm. The left lower extremities were cleaned and patted dry. AMD pad followed by dry sterile dressing compression wrap was donned to left extremity. Patient will change daily. He will be following up with Dr. Rock on 03/01/2025 for evaluation due to his peripheral venous disease. Educated the patient on smoking cessation Prescription of tramadol 50 mg 3 times daily for 7 days will be dispensed to the patient and this will be the last prescription. Follow-up at the wound care center with Dr. Ennis in 1 week. (2) Other specified peripheral vascular diseases: CODE(S): I73.89 - Other specified peripheral vascular diseases
== END 2025-02-19 23:59 | disposition home or self-care (01) ==
LOC: WC 11:00
PROVIDERS: PCP Family Medicine; Referring Provider Family Medicine; Visit Provider Podiatrist Foot & Ankle Surgery
DX: L97.522 Non-pressure chronic ulcer of other part of left foot with fat layer exposed (principal); I73.89 Other specified peripheral vascular diseases
CPT/HCPCS: 11042

== ENCOUNTER 2025-03-08 13:00 | Outpatient (RCR) | payer MEDICARE, SELFPAY ==
[2025-02-22 13:18] VITALS: BP 191/97; PULSE 72; RESP 18; TEMP 36.1
--- NOTE | 2025-02-22 14:42 | PN.PCM_ITS ---
History of Present Illness Date of Service: 02/22/25 Chief Complaint: Full-thickness wound, left foot and ankle. History of Wound: Full-thickness wound to left foot and ankle secondary to venous insufficiency. Patient has extensive history of vascular intervention from Dr. Rock Progress of Wound: Improving full-thickness wound left foot Subjective Subjective Patient is a 74-year-old male presented to wound care center today follow-up evaluation of full-thickness wound to the left foot. He has been compliant with dressing changes. Admits great improvement to the wound. He is following up with vascular surgery, Dr. Rock in [place] for evaluation and treatment of his venous insufficiency of the left lower extremity. Denies trauma. Denies constitutional symptoms. No other pedal complaints at this time. Objective Data Objective Data Vital Signs: Vital Signs Temp Pulse Resp BP O2 Del Method 96.9 F L 72 18 191/97 H Room Air 02/22/25 13:18 02/22/25 13:18 02/22/25 13:18 02/22/25 13:18 02/22/25 13:18 Oxygen Delivery Method Room Air Lab / Micro Data Micro: Microbiology 01/04/25 11:45 Wound - Left Foot Gram Stain - Final 01/04/25 11:45 Wound - Left Foot Wound Culture - Final Citrobacter freundii Providencia rettgeri Staphylococcus epidermidis 01/04/25 11:45 Wound - Left Foot Anaerobic Culture - Final Anaerobic cocci Physical Exam Narrative Vascular: DP and PT pulses are biphasic on Doppler. CFT is brisk. Skin temperature gradient is warm to warm from proximal ankles to distal digit. No erythema. Neurological: Light touch is intact. Patient responds to painful stimuli. Dermatological: Evidence of full-thickness wound to the left lateral foot measuring 1.2 x 0.5 x 0.1 cm wound base is fibrogranular nature. No erythema. No drainage. Excisional debridement down to and including subcutaneous tissue of the left lateral foot full-thickness wound done with a number 3 mm dermal curette done without incident. Predebridement measurement was 1.0 x 0.4 x 0.1 cm. Postdebridement measurement 1.2 x 0.5 x 0.1 cm. Muscle skeletal: No pain on palpation to the full-thickness wounds to the left lower extremity. No pain with calf pressure. Debridement Note Debridement Note Debridement Free Text: Excisional debridement down to and including subcutaneous tissue of the left lateral foot full-thickness wound done with a number 3 mm dermal curette done without incident. Predebridement measurement was 1.0 x 0.4 x 0.1 cm. Postdebridement measurement 1.2 x 0.5 x 0.1 cm. Post-Debridement Measurements and Additional Note: Post-Debridement Measurements/Treatment WC - Nurse 1 - General Ulcer Assessment Start: 02/22/25 13:18 Freq: Status: Active Protocol: ENDER Activity Type Activity Date Activity User E-sign Co-sign Detail Recorded Client Recorded Date Recorded By Document 02/22/25 13:18 RB [id number] 02/22/25 13:20 RB 02/22/25 13:18 WC - Today's Visit Information Type of service Follow-up Visit (Physician/POWER SAW MECHANIC ) Arrival Mode Ambulatory Transfer Assistance None Patient Identification Verified (Name & Yes ) Patient Requires Transmission-Based No Precautions Vital Signs Temperature (97.8 F-99.1 F) 96.9 F L Temperature Source Temporal Pulse Rate (60-100) 72 Pulse Location Monitor Respiratory Rate (12-18) 18 Respiratory rate source Observation Oxygen Delivery Method Room Air Blood Pressure (90/60-120/80) 191/97 H Blood Pressure Mean (mm Hg) 128 Source Monitor Position Sitting Blood Pressure Location Left Arm History Since Last Visit- (Skip if this is Patient's initial visit) Have you changed medications since your No last visit? Any new allergies or adverse reactions No Had a fall/change in ADL's that may No increase risk of falls Signs or symptoms of abuse and/or No neglect since last visit Have you been in the hospital since your No last visit? Has dressing in place as prescribed Yes Has compression in place as prescribed Yes Has offloadiing in place as prescribed N/A Experienced any changes in pain level or No management Pain Scale: 0-10 Numeric Is Patient Pain Free? Yes - Nurse 1 - General Ulcer Measurement Start: 02/22/25 13:18 Freq: Status: Active Protocol: Activity Type Activity Date Activity User E-sign Co-sign Detail Recorded Client Recorded Date Recorded By Document 02/22/25 13:18 RB [id number] 02/22/25 13:20 RB 02/22/25 13:18 Wound Center Nurse 1 #1 LT LAT FOOT -Combined with other wound No -Current Size (cm) - Length 0.5 -Current Size (cm) - Width 1 -Current Size (cm) - Depth 0.2 -Total Square Cm 0.5 -Date of Last Picture (Recall this 02/22/25 field) -Photo Taken Yes -Tunneling No -Undermining/Tunneling No -Circular Undermining No -Exudate Amt Medium -Exudate Type Serosanguineous -Wound Margin Thickened & Rolled Under -Granulation Amt Medium (34-66%) -Granulation Quality Sawmill -Slough/Fibrin Yes -Necrosis Amt Medium (34-66%) -Necrotic Tissue Type Adherent Slough -Structure Exposed N/A -Texture (Glenda-wound Skin Appearance) Assessed -Moisture (Glenda-wound Skin Appearance) Assessed -Color (Glenda-wound Skin Appearance) Hemosiderin Staining -Temperature (Glenda-wound Skin No Abnormality Appearance) (Pt Warm) -Tenderness on Palpation (Glenda-wound No Skin Appearance) -Ulcer Cleansing Wound Cleanser -Foul Odor after Cleansing No -Anesthetic Used 5% Lidocaine Gel Lower Limb Edema Present Yes Left Calf (cm) 41.5 Left Ankle (cm) 24 WC - Nurse 2 - General Ulcer CM Notes Start: 02/22/25 13:18 Freq: Status: Active Protocol: Activity Type Activity Date Activity User E-sign Co-sign Detail Recorded Client Recorded Date Recorded By Document 02/22/25 13:27 BILL [id number] 02/22/25 13:28 BILL 02/22/25 13:27 Wound Center Nurse 2 #1 LT LAT FOOT -Time 13:27 -Correct Patient Yes -Correct Side, Site, Position Yes -Correct Procedure Yes -Procedure Performed Yes -Type of Procedure Debridement -Clinical Debridement Subcutaneous -Tissue Removed Subcutaneous -Post Debridement (cm) - Length 1.2 -Post Debridement (cm) - Width 0.5 -Post Debridement (cm) - Depth 0.1 -Total Square (Post) (cm) 0.60 -Area of Debridement (cm) - Length 1.2 -Area of Debridement (cm) - Width 0.5 -Total Square (Area) (cm) 0.60 -Tunneling No -Undermining/Tunneling No -Circular Undermining No -Wound/Ulcer Outcome Not Healed -Ulcer Cleansing Rinsed/ Irrigated with Saline -Foul Odor after Cleansing No -Bioengineered Tissue No -Bleeding Controlled with Pressure -Treatment Response Procedure Tolerated Well -Offloading No -Debridement - Subq, 1st 20sq cm Yes Pain Scale: 0-10 Numeric Is Patient Pain Free? Yes - Nurse 3 - General Ulcer D/C NN Start: 02/22/25 13:18 Freq: Status: Active Protocol: Activity Type Activity Date Activity User E-sign Co-sign Detail Recorded Client Recorded Date Recorded By Document 02/22/25 13:28 [id number] 02/22/25 13:30 02/22/25 13:28 Wound Care Center Nurse 3 #1 LT LAT FOOT -Ulcer Cleansing Rinsed/ Irrigated with Saline -Primary Dressing Applied Aquacel AG 4x4 -Primary Dressing Covered/Secured with Dry Gauze & Roll Gauze, Secured with Tape -Aquacel AG 4x4 1 BLE -Stockings Yes: pt own compression stockings Treatment Response Procedure Tolerated Well Pain Scale: 0-10 Numeric Is Patient Pain Free? Yes WC - Visit Discharge Discharge Condition Stable Ambulatory Status Ambulatory Transportation Private Auto Medication Reconcilliation completed & No provided to patient/care provider Clinical Summary of Care Provided Yes Assessment/Plan Assessment/Plan (1) Non-pressure chronic ulcer of other part of left foot with fat layer exposed: CODE(S): L97.522 - Non-pressure chronic ulcer of other part of left foot with fat layer exposed PLAN: Patient was examined and evaluated. All findings were discussed with the patient. All questions were answered to the patient's satisfaction. Excisional debridement down to and including subcutaneous tissue of the left lateral foot full-thickness wound done with a number 3 mm dermal curette done without incident. Predebridement measurement was 1.0 x 0.4 x 0.1 cm. Postdebridement measurement 1.2 x 0.5 x 0.1 cm. The left lower extremities were cleaned and patted dry. AMD pad followed by dry sterile dressing compression wrap was donned to left extremity. Patient will change daily. He will be following up with Dr. Rock on 03/01/2025 for evaluation due to his peripheral venous disease. Educated the patient on smoking cessation Follow-up at the wound care center with Dr. Ennis in 1 week. (2) Other specified peripheral vascular diseases: CODE(S): I73.89 - Other specified peripheral vascular diseases
[2025-03-08 12:53] VITALS: BP 113/97; PULSE 78; RESP 16; TEMP 36.4
--- NOTE | 2025-03-08 14:09 | PN.PCM_ITS ---
History of Present Illness Date of Service: 03/08/25 Chief Complaint: Full-thickness wound, left foot and ankle. History of Wound: Full-thickness wound to left foot and ankle secondary to venous insufficiency. Patient has extensive history of vascular intervention from Dr. Rock Progress of Wound: Improving full-thickness wound left foot Subjective Subjective Patient is a 74-year-old male presented to clinic today follow-up evaluation of full-thickness wound to the lateral left foot. Patient has been compliant with dressing changes. He did have his vein procedure done by Dr. Rock. He is following up with his vascular surgeon today. He admits no pain today but did have some pain over the weekend after being active. Drainage is not present. He denies trauma. Denies constitutional symptoms. No other pedal complaints at this time Objective Data Objective Data Vital Signs: Vital Signs Temp Pulse Resp BP O2 Del Method 97.5 F L 78 16 113/97 H Room Air 03/08/25 12:53 03/08/25 12:53 03/08/25 12:53 03/08/25 12:53 03/08/25 12:53 Oxygen Delivery Method Room Air Lab / Micro Data Micro: Microbiology 01/04/25 11:45 Wound - Left Foot Gram Stain - Final 01/04/25 11:45 Wound - Left Foot Wound Culture - Final Citrobacter freundii Providencia rettgeri Staphylococcus epidermidis 01/04/25 11:45 Wound - Left Foot Anaerobic Culture - Final Anaerobic cocci Physical Exam Narrative Vascular: DP and PT pulses are biphasic on Doppler. CFT is brisk. Skin temperature gradient is warm to warm from proximal ankles to distal digit. No erythema. Neurological: Light touch is intact. Patient responds to painful stimuli. Dermatological: Evidence of full-thickness wound to the left lateral foot measuring 0.5 x 0.2 x 0.1 cm. Wound base is fibrogranular nature. No erythema. No drainage. Excisional debridement down to and including subcutaneous tissue of the left lateral foot full-thickness wound done with a number 3 mm dermal curette done without incident. Predebridement measurement was 0.3 x 0.1 x 0.1 cm. Postdebridement measurement 0.5 x 0.2 x 0.1 cm. Muscle skeletal: No pain on palpation to the full-thickness wounds to the left lower extremity. No pain with calf pressure. Debridement Note Debridement Note Debridement Free Text: Excisional debridement down to and including subcutaneous tissue of the left lateral foot full-thickness wound done with a number 3 mm dermal curette done without incident. Predebridement measurement was 0.3 x 0.1 x 0.1 cm. Postdebridement measurement 0.5 x 0.2 x 0.1 cm. Post-Debridement Measurements and Additional Note: Post-Debridement Measurements/Treatment WC - Nurse 1 - General Ulcer Assessment Start: 02/22/25 13:18 Freq: Status: Active Protocol: ENDER Activity Type Activity Date Activity User E-sign Co-sign Detail Recorded Client Recorded Date Recorded By Document 02/22/25 13:18 RB [id number] 02/22/25 13:20 RB Document 03/08/25 12:53 TS [id number] 03/08/25 12:59 TS 02/22/25 03/08/25 13:18 12:53 WC - Today's Visit Information Type of service Follow-up Visit Follow-up Visit (Physician/ELECTROMECHANICAL EQUIPMENT TESTER (Physician/ELECTROMECHANICAL EQUIPMENT TESTER ) ) Arrival Mode Ambulatory Ambulatory,Cane Transfer Assistance None Patient Identification Verified (Name & Yes ) Patient Requires Transmission-Based No No Precautions Safety Precautions Fall Prevention Vital Signs Temperature (97.8 F-99.1 F) 96.9 F L 97.5 F L Temperature Source Temporal Temporal Pulse Rate (60-100) 72 78 Pulse Location Monitor Respiratory Rate (12-18) 18 16 Respiratory rate source Observation Observation Oxygen Delivery Method Room Air Room Air Blood Pressure (90/60-120/80) 191/97 H 113/97 H Blood Pressure Mean (mm Hg) 128 102 Source Monitor Monitor Position Sitting Sitting Blood Pressure Location Left Arm Left Arm History Since Last Visit- (Skip if this is Patient's initial visit) Have you changed medications since your No No last visit? Any new allergies or adverse reactions No No Had a fall/change in ADL's that may No No increase risk of falls Signs or symptoms of abuse and/or No No neglect since last visit Have you been in the hospital since your No No last visit? Has dressing in place as prescribed Yes Yes Has compression in place as prescribed Yes Yes Has offloadiing in place as prescribed N/A N/A Experienced any changes in pain level or No No management Left Footwear Regular Shoe Right Footwear Regular Shoe Pain Scale: 0-10 Numeric Is Patient Pain Free? Yes Yes WC - Nurse 1 - General Ulcer Measurement Start: 02/22/25 13:18 Freq: Status: Active Protocol: Activity Type Activity Date Activity User E-sign Co-sign Detail Recorded Client Recorded Date Recorded By Document 02/22/25 13:18 RB [id number] 02/22/25 13:20 RB Document 03/08/25 12:53 TS [id number] 03/08/25 12:59 TS 02/22/25 03/08/25 13:18 12:53 Wound Center Nurse 1 #1 LT LAT FOOT -Combined with other wound No No -Current Size (cm) - Length 0.5 0.5 -Current Size (cm) - Width 1 1.5 -Current Size (cm) - Depth 0.2 0.1 -Total Square Cm 0.5 0.75 -Date of Last Picture (Recall this 02/22/25 field) -Photo Taken Yes No -Tunneling No -Undermining/Tunneling No No -Circular Undermining No No -Exudate Amt Medium Small -Exudate Type Serosanguineous Serosanguineous -Wound Margin Thickened & Distinct, Rolled Under Outline Attached -Granulation Amt Medium (34-66%) Medium (34-66%) -Granulation Quality Wyn[place] Wynot,Red -Slough/Fibrin Yes Yes -Necrosis Amt Medium (34-66%) Medium (34-66%) -Necrotic Tissue Type Adherent Slough Adherent Slough -Structure Exposed N/A Fascia -Texture (Glenda-wound Skin Appearance) Assessed Assessed -Moisture (Glenda-wound Skin Appearance) Assessed -Color (Glenda-wound Skin Appearance) Hemosiderin Assessed Staining -Temperature (Glenda-wound Skin No Abnormality No Abnormality Appearance) (Pt Warm) (Pt Warm) -Tenderness on Palpation (Glenda-wound No Skin Appearance) -Ulcer Cleansing Wound Cleanser Rinsed/ Irrigated with Saline -Foul Odor after Cleansing No No -Anesthetic Used 5% Lidocaine 5% Lidocaine Gel Gel Lower Limb Edema Present Yes Point of measurement (cm from the medial 45 instep) Point of Measurement (cm from the medial 25 instep) Left Calf (cm) 41.5 Point of measurement (cm from the medial 43 instep) Left Ankle (cm) 24 Point of Measurement (cm from the medial 24.5 instep) WC - Nurse 2 - General Ulcer CM Notes Start: 02/22/25 13:18 Freq: Status: Active Protocol: Activity Type Activity Date Activity User E-sign Co-sign Detail Recorded Client Recorded Date Recorded By Document 02/22/25 13:27 [id number] 02/22/25 13:28 Document 03/08/25 13:07 [id number] 03/08/25 13:10 02/22/25 03/08/25 13:27 13:07 Wound Center Nurse 2 #1 LT LAT FOOT -Time 13:27 13:07 -Correct Patient Yes Yes -Correct Side, Site, Position Yes Yes -Correct Procedure Yes Yes -Procedure Performed Yes Yes -Type of Procedure Debridement Debridement -Clinical Debridement Subcutaneous Subcutaneous -Tissue Removed Subcutaneous Subcutaneous -Post Debridement (cm) - Length 1.2 0.5 -Post Debridement (cm) - Width 0.5 0.2 -Post Debridement (cm) - Depth 0.1 0.1 -Total Square (Post) (cm) 0.60 0.10 -Area of Debridement (cm) - Length 1.2 0.5 -Area of Debridement (cm) - Width 0.5 0.2 -Total Square (Area) (cm) 0.60 0.10 -Tunneling No No -Undermining/Tunneling No No -Circular Undermining No No -Wound/Ulcer Outcome Not Healed Not Healed -Ulcer Cleansing Rinsed/ Rinsed/ Irrigated with Irrigated with Saline Saline -Foul Odor after Cleansing No No -Bioengineered Tissue No No -Bleeding Controlled with Pressure Pressure -Treatment Response Procedure Procedure Tolerated Well Tolerated Well -Offloading No No -Debridement - Subq, 1st 20sq cm Yes Yes Pain Scale: 0-10 Numeric Is Patient Pain Free? Yes Yes - Nurse 3 - General Ulcer D/C NN Start: 02/22/25 13:18 Freq: Status: Active Protocol: Activity Type Activity Date Activity User E-sign Co-sign Detail Recorded Client Recorded Date Recorded By Document 02/22/25 13:28 [id number] 02/22/25 13:30 Document 03/08/25 13:22 SHARRI [id number] 03/08/25 13:23 02/22/25 03/08/25 13:28 13:22 Wound Care Center Nurse 3 #1 LT LAT FOOT -Ulcer Cleansing Rinsed/ Not Cleansed Irrigated with Saline -Primary Dressing Applied Aquacel AG 4x4 Aquacel AG 2x2 -Primary Dressing Covered/Secured with Dry Gauze & Dry Gauze Roll Gauze, Secured with Tape -Aquacel AG 2x2 1 -Aquacel AG 4x4 1 BLE -Lotion applied to leg before No compression wrap -Stockings Yes: pt own Yes: pt compression supplied own stockings compression stockings Treatment Response Procedure Tolerated Well Pain Scale: 0-10 Numeric Is Patient Pain Free? Yes Yes WC - Visit Discharge Discharge Condition Stable Stable Ambulatory Status Ambulatory Ambulatory,Cane Transportation Private Auto Private Auto Accompanied by Medication Reconcilliation completed & No provided to patient/care provider Clinical Summary of Care Provided Yes Assessment/Plan Assessment/Plan (1) Non-pressure chronic ulcer of other part of left foot with fat layer exposed: CODE(S): L97.522 - Non-pressure chronic ulcer of other part of left foot with fat layer exposed PLAN: Patient was examined and evaluated. All findings were discussed with the patient. All questions were answered to the patient's satisfaction. Excisional debridement down to and including subcutaneous tissue of the left lateral foot full-thickness wound done with a number 3 mm dermal curette done without incident. Predebridement measurement was 0.3 x 0.1 x 0.1 cm. Postdebridement measurement 0.5 x 0.2 x 0.1 cm. The left foot was quite clean and patted dry. AMD foam was applied followed by dry sterile dressing and compression wrap. Patient will change every other day. He will follow-up with Dr. Rock today. Follow-up at the wound care center with Dr. Ennis in 4 week. (2) Other specified peripheral vascular diseases: CODE(S): I73.89 - Other specified peripheral vascular diseases
== END 2025-03-22 23:59 | disposition home or self-care (01) ==
LOC: WC 13:00
PROVIDERS: PCP Family Medicine; Referring Provider Family Medicine; Visit Provider Podiatrist Foot & Ankle Surgery
DX: L97.522 Non-pressure chronic ulcer of other part of left foot with fat layer exposed (principal); I87.2 Venous insufficiency (chronic) (peripheral); I73.89 Other specified peripheral vascular diseases
CPT/HCPCS: 11042